=== PATIENT | female | born 1995 | race Caucasian/White ===

== ENCOUNTER 2017-11-15 17:02 | Emergency (ER) | payer MEDICAID ==
[~2017-11-15] VITALS: Ht 152.4 cm; Wt 66.2 kg
[2017-11-15 17:15] VITALS: BP 117/60
[2017-11-15 18:10] LABS: Basophils # (auto) 0.1 uL; Basophils % (auto) 0.5 % (0.0-2.0); Eosinophils # (auto) 0 uL; Eosinophils % (auto) 0.5 % (0.0-7.0); Hemoglobin 13.9 g/dL (12.2-16.2); Lymphocytes # (auto) 1.8 uL; Lymphocytes % (auto) 19.6 % (10.0-50.0); Mean Corpuscular Hemoglobin 32.2 pg (28.0-32.0); Mean Corpuscular Hgb Conc. 33.2 g/dL (32.0-36.0); Mean Corpuscular Volume 97.1 fL (80.0-100.0); Monocytes # (auto) 0.8 uL; Neutrophils # (auto) 6.7 uL; Neutrophils % (auto) 71.4 % (37.0-80.0); Nucleated Red Blood Cells % 0.2 %; Platelet Count (auto) 401 10^3/uL (140-450); Red Blood Cells 4.33 10^6/uL (4.0-5.20); Red Cell Distribution Width 13.5 % (11.8-14.3); White Blood Cell 9.4 10^3/uL (4.4-10.8)
[2017-11-15 18:22] LABS: Albumin 4.2 g/dL (3.4-5.0); BUN/Creatinine Ratio 12.1; Bilirubin, Total 1.7 mg/dL (0.2-1.0); Potassium 3.6 mmol/L (3.5-5.1)
[2017-11-16 00:02] LABS: Urine Bacteria NONE SEEN /hpf (None Seen); Urine Blood Negative /uL (Negative); Urine Mucus FEW (None Seen); Urine Specific Gravity 1.026 (1.001-1.035); Urine WBC 2 /hpf (0 - 5)
== END 2017-11-16 03:27 | disposition home or self-care (01) ==
LOC: ER 17:04
DX: K29.70 Gastritis, unspecified, without bleeding (principal)
CPT/HCPCS: 36415; 71046; 74176; 76705; 80053; 81001; 82962; 83690; 85025

== ENCOUNTER 2017-11-18 15:35 | Emergency (ER) | payer MEDICAID ==
[~2017-11-18] VITALS: Ht 162.6 cm; Wt 61.9 kg
[2017-11-18] MEDS ORDERED: KETOROLAC TROMETH 60MG/2ML VIAL IM ONE (16:15)
[2017-11-18 18:56] VITALS: BP 106/76
== END 2017-11-18 19:16 | disposition home or self-care (01) ==
LOC: ER 15:35
DX: R10.13 Epigastric pain (principal); R11.2 Nausea with vomiting, unspecified; R53.1 Weakness
CPT/HCPCS: 83001; 96372; 99283; J1885

== ENCOUNTER 2020-12-07 03:46 | Inpatient (IN) | payer MEDICAID ==
[~2020-12-07] VITALS: Ht 157.5 cm; Wt 104.6 kg
[2020-12-07 04:27] LABS: Urine Bacteria MOD /hpf (None Seen); Urine Blood 3+ /uL (Negative); Urine Mucus FEW (None Seen); Urine Specific Gravity 1.036 (1.001-1.035); Urine WBC 37 /hpf (0 - 5)
[2020-12-07] MEDS ORDERED: HYDROmorphone HCL 2 MG/ML VL IV ONE (04:30)
[2020-12-07] MEDS ORDERED: ONDANSETRON HCL 4 MG/2 ML VIAL IV ONE (04:30)
[2020-12-07] MEDS ORDERED: KETOROLAC TROMETH 30 MG/ML 1ML VIAL IV ONE (04:30)
[2020-12-07] MEDS ORDERED: cefTRIAXone 1GM/50ML D5W 50 ML IV ONE ×2 (05:30→08:30)
[2020-12-07] MEDS ORDERED: NITROGLYCERIN 0.4 MG SL TAB SL PRN (07:30)
[2020-12-07] MEDS ORDERED: MORPHINE SULFATE 4 MG/ML SYR/VIAL IV PRN (07:30)
[2020-12-07] MEDS ORDERED: DOCUSATE SOD 100 MG CAP PO PRN (07:30)
[2020-12-07] MEDS ORDERED: MORPHINE SULF INJ 2 MG/ML SYRINGE 1ML IV PRN (07:30)
[2020-12-07] MEDS ORDERED: ONDANSETRON HCL 4 MG/2 ML VIAL IV PRN (07:30)
[2020-12-07] MEDS ORDERED: SODIUM CHLORIDE 0.9% 1,000 ML IV SCH (07:30)
[2020-12-07] MEDS ORDERED: ACETAMINOPHEN 325 MG TAB PO PRN (07:30)
[2020-12-07] MEDS ORDERED: MANNITOL FTV 25% 12.5 GM/50 ML 50 ML IV ONE (08:15)
[2020-12-07] MEDS ORDERED: METOCLOPRAMIDE HCL 5MG/ml INJ 2ml VIAL IV PRN (08:15)
[2020-12-07] MEDS ORDERED: SODIUM CHLORIDE 0.9% 1,000 ML IV ONE (08:15)
[2020-12-07 08:16] LABS: Basophils # (auto) 0 10 ^3/uL (0-0.2); Eosinophils # (auto) 0 10 ^3/uL (0-0.8); Eosinophils % (auto) 0.1 % (0.0-7.0); Mean Corpuscular Volume 92.3 fL (80.0-100.0)
[2020-12-07 08:19] LABS: Basophils % (auto) 0.2 % (0.0-2.0); Hematocrit 38.1 % (36.0-46.0); Lymphocytes % (auto) 7.7 % (10.0-50.0); Mean Corpuscular Hemoglobin 31.4 pg (28.0-32.0); Monocytes # (auto) 0.7 10 ^3/uL (0-1.3); Monocytes % (auto) 5.2 % (0.0-12.0); Neutrophils # (auto) 11.7 10 ^3/uL (1.6-8.6); Neutrophils % (auto) 86.8 % (37.0-80.0); Nucleated Red Blood Cells % 0.1 %; Platelet Count (auto) 485 10^3/uL (140-450); Red Blood Cells 4.13 10^6/uL (4.0-5.20); Red Cell Distribution Width 13.7 % (11.8-14.3); White Blood Cell 13.4 10^3/uL (4.4-10.8)
[2020-12-07 08:31] LABS: Albumin 3.5 g/dL (3.4-5.0); Calcium 8.8 mg/dL (8.5-10.1); Potassium 3.4 mmol/L (3.5-5.1)
[2020-12-07 08:35] LABS: BUN/Creatinine Ratio 12.5; Bilirubin, Total 0.9 mg/dL (0.2-1.0); Total Protein 7.6 g/dL (6.4-8.2)
[2020-12-07] MEDS: FAMOTIDINE 20 MG TAB PO SCH ×2 (10:04→21:21)
[2020-12-07] MEDS: SODIUM CHLORIDE 0.9% 1,000 ML IV SCH (10:08)
[2020-12-07] MEDS ORDERED: NITR-52 PO (11:06)
[2020-12-07] MEDS ORDERED: PROM25TA5 PO (11:06)
[2020-12-07] MEDS: HYDROcodone-ACET 5/325MG TAB PO PRN ×3 (11:52→22:12)
[2020-12-07 12:42] VITALS: BP 128/84
[2020-12-07 15:47] LABS: INR 1.07 (0.9-1.15)
[2020-12-07 16:40] VITALS: BP 128/74
[2020-12-07] MEDS: TAMSULOSIN HYDROCHLORIDE 0.4 MG CAP PO SCH (18:04)
[2020-12-07 22:00] VITALS: BP 93/41
[2020-12-07] MEDS: MORPHINE SULF INJ 2 MG/ML SYRINGE 1ML IV PRN (23:01)
[2020-12-08] MEDS: SODIUM CHLORIDE 0.9% 1,000 ML IV SCH ×2 (01:37→16:09)
[2020-12-08] MEDS: MORPHINE SULF INJ 2 MG/ML SYRINGE 1ML IV PRN ×2 (02:53→23:21)
[2020-12-08 05:53] VITALS: BP 105/72
[2020-12-08 06:02] LABS: Basophils # (auto) 0 10 ^3/uL (0-0.2); Basophils % (auto) 0.4 % (0.0-2.0); Eosinophils # (auto) 0.1 10 ^3/uL (0-0.8); Eosinophils % (auto) 1.1 % (0.0-7.0); Hematocrit 34.3 % (36.0-46.0); Lymphocytes # (auto) 1.5 10 ^3/uL (0.4-5.4); Lymphocytes % (auto) 15.8 % (10.0-50.0); Mean Corpuscular Hemoglobin 32.6 pg (28.0-32.0); Mean Corpuscular Hgb Conc. 35.1 g/dL (32.0-36.0); Monocytes % (auto) 10.2 % (0.0-12.0); Neutrophils # (auto) 6.8 10 ^3/uL (1.6-8.6); Neutrophils % (auto) 72.5 % (37.0-80.0); Nucleated Red Blood Cells % 0.1 %; Platelet Count (auto) 361 10^3/uL (140-450); Red Blood Cells 3.68 10^6/uL (4.0-5.20); Red Cell Distribution Width 14.1 % (11.8-14.3); White Blood Cell 9.4 10^3/uL (4.4-10.8)
[2020-12-08 06:22] LABS: Albumin 3.1 g/dL (3.4-5.0); Potassium 3.4 mmol/L (3.5-5.1)
[2020-12-08 06:24] LABS: BUN/Creatinine Ratio 13.6
[2020-12-08 06:37] LABS: Bilirubin, Total 1.3 mg/dL (0.2-1.0); Total Protein 6.8 g/dL (6.4-8.2)
[2020-12-08 08:46] VITALS: BP 123/71
[2020-12-08] MEDS: FAMOTIDINE 20 MG TAB PO SCH ×2 (08:52→21:27)
[2020-12-08] MEDS: cefTRIAXone 1GM/50ML D5W 50 ML IV SCH (08:53)
[2020-12-08] MEDS ORDERED: POTASSIUM CHL 20 Meq TABLET PO ONE (12:45)
[2020-12-08 13:00] VITALS: BP 113/64
[2020-12-08 16:44] VITALS: BP 127/57
[2020-12-08] MEDS: TAMSULOSIN HYDROCHLORIDE 0.4 MG CAP PO SCH (18:08)
[2020-12-08] MEDS: HYDROcodone-ACET 5/325MG TAB PO PRN (19:01)
[2020-12-08 21:53] VITALS: BP 106/61
[2020-12-08] MEDS ORDERED: MANNITOL FTV 25% 12.5 GM/50 ML 50 ML IV ONE (22:00)
[2020-12-09] MEDS: HYDROcodone-ACET 5/325MG TAB PO PRN ×3 (02:11→17:58)
[2020-12-09 05:00] VITALS: BP 101/62
[2020-12-09] MEDS: SODIUM CHLORIDE 0.9% 1,000 ML IV SCH ×2 (06:12→14:40)
[2020-12-09] MEDS: FAMOTIDINE 20 MG TAB PO SCH (08:13)
[2020-12-09] MEDS: cefTRIAXone 1GM/50ML D5W 50 ML IV SCH (08:13)
[2020-12-09 09:25] VITALS: BP 108/65
[2020-12-09 13:00] VITALS: BP 123/60
[2020-12-09 16:34] VITALS: BP 128/68
[2020-12-09 17:23] VITALS: BP 123/60
[2020-12-09] MEDS: TAMSULOSIN HYDROCHLORIDE 0.4 MG CAP PO SCH (17:58)
== END 2020-12-09 18:35 | disposition home or self-care (01) | DRG 463 ==
LOC: ER 03:47 → TELE 03:48 → ER 06:34 → TELE-CENTR 09:26
PROVIDERS: ADMIT Nurse Practitioner; ATTEND Nurse Practitioner
DX: N13.6 Pyonephrosis (principal); Z68.41 Body mass index [BMI] 40.0-44.9, adult; N94.6 Dysmenorrhea, unspecified; E66.9 Obesity, unspecified; Q90.9 Down syndrome, unspecified; Z87.891 Personal history of nicotine dependence; Z20.822 Contact with and (suspected) exposure to COVID-19; M54.5 Low back pain
CPT/HCPCS: 36415; 74018; 74176; 76775; 80053; 81001; 81025; 84702; 85025; 85610; 87426; 96361; 96365; 96375; G0378; J0696; J1885; J2405

== ENCOUNTER 2020-12-21 16:16 | Inpatient (IN) | payer MEDICAID ==
[~2020-12-21] VITALS: Ht 157.5 cm; Wt 111.0 kg
[2020-12-21] MEDS ORDERED: SODIUM CHLORIDE 0.9% 1,000 ML IV ONE (18:00)
[2020-12-21] MEDS ORDERED: ONDANSETRON HCL 4 MG/2 ML VIAL IV ONE (18:00)
[2020-12-21] MEDS ORDERED: KETOROLAC TROMETH 30 MG/ML 1ML VIAL IV ONE (18:00)
[2020-12-21 18:58] LABS: Basophils # (auto) 0.1 10 ^3/uL (0-0.2); Eosinophils # (auto) 0 10 ^3/uL (0-0.8); Monocytes # (auto) 0.8 10 ^3/uL (0-1.3); Nucleated Red Blood Cells % 0.1 %; Red Cell Distribution Width 14.7 % (11.8-14.3)
[2020-12-21 18:59] LABS: Basophils % (auto) 0.7 % (0.0-2.0); Eosinophils % (auto) 0.3 % (0.0-7.0); Hemoglobin 14.7 g/dL (12.2-16.2); Lymphocytes # (auto) 2.1 10 ^3/uL (0.4-5.4); Lymphocytes % (auto) 22.2 % (10.0-50.0); Mean Corpuscular Hemoglobin 31.2 pg (28.0-32.0); Mean Corpuscular Hgb Conc. 32.8 g/dL (32.0-36.0); Mean Corpuscular Volume 95.4 fL (80.0-100.0); Neutrophils # (auto) 6.3 10 ^3/uL (1.6-8.6); Neutrophils % (auto) 67.8 % (37.0-80.0); Platelet Count (auto) 450 10^3/uL (140-450); Red Blood Cells 4.71 10^6/uL (4.0-5.20); White Blood Cell 9.4 10^3/uL (4.4-10.8)
[2020-12-21] MEDS ORDERED: MORPHINE SULF INJ 2 MG/ML SYRINGE 1ML IV ONE ×2 (21:00→21:15)
[2020-12-21 21:56] LABS: Urine Amorphous Crystal FEW /hpf (None Seen); Urine Bacteria FEW /hpf (None Seen); Urine Blood 2+ /uL (Negative); Urine Mucus FEW (None Seen); Urine Specific Gravity 1.034 (1.001-1.035); Urine WBC 17 /hpf (0 - 5)
[2020-12-21 22:05] LABS: Sodium 140 mmol/L (136-145)
[2020-12-21 22:06] LABS: Anion Gap 8 (5-15); Carbon Dioxide 23 mmol/L (21-32); Chloride 109 mmol/L (98-107); Potassium 4.1 mmol/L (3.5-5.1)
[2020-12-21 22:07] LABS: Glucose 83 mg/dL (74-106)
[2020-12-21 22:08] LABS: Alanine Aminotransferase 13 U/L (13-56); Albumin 3.9 g/dL (3.4-5.0); Alkaline Phosphatase 53 U/L (45-117); Aspartate Aminotransferase 15 U/L (15-37); BUN/Creatinine Ratio 16.4; Bilirubin, Total 1.1 mg/dL (0.2-1.0); Blood Urea Nitrogen 12 mg/dL (7-18); Calcium 9.3 mg/dL (8.5-10.1); GFR African American 124 mL/min; GFR Non-African American 102 mL/min; Total Protein 8.2 g/dL (6.4-8.2)
[2020-12-21] MEDS ORDERED: cefTRIAXone 1GM/50ML D5W 50 ML IV ONE (22:15)
[2020-12-21] MEDS ORDERED: TAMSULOSIN HYDROCHLORIDE 0.4 MG CAP PO ONE (22:45)
[2020-12-21] MEDS ORDERED: MORPHINE SULF INJ 2 MG/ML SYRINGE 1ML IV PRN (22:45)
[2020-12-21] MEDS ORDERED: NITROGLYCERIN 0.4 MG SL TAB SL PRN (22:45)
[2020-12-22] MEDS ORDERED: MORPHINE SULF INJ 2 MG/ML SYRINGE 1ML IV PRN
[2020-12-22] MEDS ORDERED: ONDANSETRON HCL 4 MG/2 ML VIAL IV PRN
[2020-12-22 00:40] VITALS: BP 116/70
[2020-12-22] MEDS: SODIUM CHLORIDE 0.9% 1,000 ML IV SCH ×3 (01:44→16:40)
[2020-12-22] MEDS ORDERED: HYDR1TAB97 PO (01:48)
[2020-12-22 05:00] VITALS: BP 111/68
[2020-12-22 05:38] LABS: Albumin 3.2 g/dL (3.4-5.0); Calcium 8.5 mg/dL (8.5-10.1); Potassium 3.9 mmol/L (3.5-5.1)
[2020-12-22 05:41] LABS: BUN/Creatinine Ratio 16.9; Bilirubin, Total 1.2 mg/dL (0.2-1.0); Total Protein 7.1 g/dL (6.4-8.2)
[2020-12-22 08:54] VITALS: BP 108/64
[2020-12-22] MEDS ORDERED: cefTRIAXone 1GM/50ML D5W 50 ML IV SCH (09:00)
[2020-12-22] MEDS: MORPHINE SULF INJ 2 MG/ML SYRINGE 1ML IV PRN ×2 (10:10→19:47)
[2020-12-22 12:28] VITALS: BP 119/69
[2020-12-22] MEDS: KETOROLAC TROMETH 30 MG/ML 1ML VIAL IV PRN ×2 (13:56→20:46)
[2020-12-22] MEDS ORDERED: MANNITOL FTV 25% 12.5 GM/50 ML 50 ML IV ONE (14:45)
[2020-12-22 16:54] VITALS: BP 118/74
[2020-12-22] MEDS: TAMSULOSIN HYDROCHLORIDE 0.4 MG CAP PO SCH (17:35)
[2020-12-22] MEDS: diphenhdrAMINE HCL 25 MG CAP PO PRN (18:03)
[2020-12-22] MEDS: CIPROFLOXACIN 400MG/200ML 200 ML IV SCH (21:58)
[2020-12-22 22:00] VITALS: BP_SYST 115; BP_SYST 157; BP_DIAS 75
[2020-12-23] MEDS: SODIUM CHLORIDE 0.9% 1,000 ML IV SCH ×4 (01:00→21:26)
[2020-12-23] MEDS: KETOROLAC TROMETH 30 MG/ML 1ML VIAL IV PRN ×2 (04:30→12:22)
[2020-12-23 05:00] VITALS: BP 117/73
[2020-12-23] MEDS: MORPHINE SULF INJ 2 MG/ML SYRINGE 1ML IV PRN ×3 (05:30→17:59)
[2020-12-23 06:08] LABS: Potassium 3.8 mmol/L (3.5-5.1)
[2020-12-23 06:18] LABS: Albumin 3.1 g/dL (3.4-5.0); BUN/Creatinine Ratio 14.5; Bilirubin, Total 1.2 mg/dL (0.2-1.0); Calcium 8.4 mg/dL (8.5-10.1); Total Protein 6.7 g/dL (6.4-8.2)
[2020-12-23 08:00] VITALS: BP 122/79
[2020-12-23] MEDS: diphenhdrAMINE HCL 25 MG CAP PO PRN ×2 (08:26→22:07)
[2020-12-23] MEDS: CIPROFLOXACIN 400MG/200ML 200 ML IV SCH ×2 (09:03→21:29)
[2020-12-23] MEDS: MAGNESIUM OXIDE 400 MG TAB PO SCH ×2 (09:03→21:29)
[2020-12-23 12:00] VITALS: BP 128/84
[2020-12-23 16:52] VITALS: BP 108/62
[2020-12-23] MEDS: TAMSULOSIN HYDROCHLORIDE 0.4 MG CAP PO SCH (17:51)
[2020-12-23 22:00] VITALS: BP 107/63
[2020-12-24] MEDS: MORPHINE SULF INJ 2 MG/ML SYRINGE 1ML IV PRN ×3 (03:02→23:08)
[2020-12-24 05:00] VITALS: BP 124/75
[2020-12-24 06:27] LABS: Potassium 3.5 mmol/L (3.5-5.1)
[2020-12-24 06:35] LABS: Albumin 2.8 g/dL (3.4-5.0); BUN/Creatinine Ratio 13.5; Calcium 7.9 mg/dL (8.5-10.1); Total Protein 6.1 g/dL (6.4-8.2)
[2020-12-24 08:00] VITALS: BP 127/83
[2020-12-24] MEDS: CIPROFLOXACIN 400MG/200ML 200 ML IV SCH ×2 (10:00→21:38)
[2020-12-24] MEDS: SODIUM CHLORIDE 0.9% 1,000 ML IV SCH ×2 (10:01→18:21)
[2020-12-24] MEDS: MAGNESIUM OXIDE 400 MG TAB PO SCH ×2 (10:01→21:38)
[2020-12-24 12:00] VITALS: BP 127/90
[2020-12-24] MEDS ORDERED: LACTULOSE 20Gm/30ML SOLN PO ONE (12:00)
[2020-12-24 16:00] VITALS: BP 131/87
[2020-12-24] MEDS: ALPRAZolam 0.25 MG TAB PO PRN (17:31)
[2020-12-24] MEDS: TAMSULOSIN HYDROCHLORIDE 0.4 MG CAP PO SCH (17:31)
[2020-12-24 20:00] VITALS: BP 118/73
[2020-12-24] MEDS: DOCUSATE SOD 100 MG CAP PO SCH (21:38)
[2020-12-24 22:00] VITALS: BP 118/73
[2020-12-25] MEDS: SODIUM CHLORIDE 0.9% 1,000 ML IV SCH ×3 (03:06→20:54)
[2020-12-25 05:00] VITALS: BP 116/77
[2020-12-25] MEDS: MORPHINE SULF INJ 2 MG/ML SYRINGE 1ML IV PRN (07:45)
[2020-12-25 08:00] VITALS: BP 134/88
[2020-12-25] MEDS: MAGNESIUM OXIDE 400 MG TAB PO SCH ×2 (10:01→21:30)
[2020-12-25] MEDS: ALPRAZolam 0.25 MG TAB PO PRN ×2 (10:01→16:53)
[2020-12-25] MEDS: DOCUSATE SOD 100 MG CAP PO SCH ×2 (10:01→21:30)
[2020-12-25] MEDS: CIPROFLOXACIN 400MG/200ML 200 ML IV SCH ×2 (10:01→21:30)
[2020-12-25 12:00] VITALS: BP 118/68
[2020-12-25 16:00] VITALS: BP 142/72
[2020-12-25] MEDS: TAMSULOSIN HYDROCHLORIDE 0.4 MG CAP PO SCH (18:00)
[2020-12-25 20:29] LABS: Urine Bacteria FEW /hpf (None Seen); Urine Blood 1+ /uL (Negative); Urine Mucus FEW (None Seen); Urine Specific Gravity 1.005 (1.001-1.035); Urine WBC 3 /hpf (0 - 5)
[2020-12-25 22:00] VITALS: BP 110/76
[2020-12-26] MEDS: SODIUM CHLORIDE 0.9% 1,000 ML IV SCH (04:47)
[2020-12-26 05:00] VITALS: BP 106/76
[2020-12-26 08:29] VITALS: BP 128/88
[2020-12-26 08:30] VITALS: BP 128/88
[2020-12-26] MEDS: DOCUSATE SOD 100 MG CAP PO SCH (10:00)
[2020-12-26] MEDS: MAGNESIUM OXIDE 400 MG TAB PO SCH (10:00)
[2020-12-26] MEDS: CIPROFLOXACIN 400MG/200ML 200 ML IV SCH (10:00)
[2020-12-26 11:58] VITALS: BP 128/88
[2020-12-26 11:58] LABS: Basophils # (auto) 0 10 ^3/uL (0-0.2); Basophils % (auto) 0.5 % (0.0-2.0); Eosinophils # (auto) 0.1 10 ^3/uL (0-0.8); Eosinophils % (auto) 0.8 % (0.0-7.0); Hematocrit 36.5 % (36.0-46.0); Hemoglobin 12.1 g/dL (12.2-16.2); Lymphocytes % (auto) 10.7 % (10.0-50.0); Mean Corpuscular Hemoglobin 30.8 pg (28.0-32.0); Mean Corpuscular Hgb Conc. 33.3 g/dL (32.0-36.0); Mean Corpuscular Volume 92.6 fL (80.0-100.0); Monocytes # (auto) 0.8 10 ^3/uL (0-1.3); Monocytes % (auto) 7.9 % (0.0-12.0); Neutrophils # (auto) 7.6 10 ^3/uL (1.6-8.6); Neutrophils % (auto) 80.1 % (37.0-80.0); Platelet Count (auto) 415 10^3/uL (140-450); Red Blood Cells 3.94 10^6/uL (4.0-5.20); Red Cell Distribution Width 14.6 % (11.8-14.3); White Blood Cell 9.5 10^3/uL (4.4-10.8)
[2020-12-26 12:16] LABS: BUN/Creatinine Ratio 7.9; Calcium 9.2 mg/dL (8.5-10.1); Potassium 3.6 mmol/L (3.5-5.1)
[2020-12-26 12:30] VITALS: BP 132/93
== END 2020-12-26 14:05 | disposition home or self-care (01) | DRG 463 ==
LOC: ER 16:16 → TELE 22:39 → TELE-CENTR 23:44
PROVIDERS: ADMIT Internal Medicine; ATTEND Internal Medicine
DX: N13.6 Pyonephrosis (principal); E66.01 Morbid (severe) obesity due to excess calories; N13.9 Obstructive and reflux uropathy, unspecified; N94.6 Dysmenorrhea, unspecified; F84.0 Autistic disorder; Z20.822 Contact with and (suspected) exposure to COVID-19; F41.1 Generalized anxiety disorder; Z87.891 Personal history of nicotine dependence; Z87.442 Personal history of urinary calculi; Z68.41 Body mass index [BMI] 40.0-44.9, adult
CPT/HCPCS: 36415; 74176; 80048; 80053; 81001; 84702; 85025; 87081; 87086; 87426; 96361; 96365; 96375; G0378; J0696; J1885; J2405

== ENCOUNTER 2022-05-28 00:37 | Emergency (ER) | payer MEDICAID ==
[~2022-05-28] VITALS: Ht 157.5 cm; Wt 109.1 kg
[~2022-05-28 00:37] MED LIST: HYDR1TAB97 PO
[2022-05-28] MEDS ORDERED: ONDANSETRON ODT 4 MG TAB PO ONE (04:15)
[2022-05-28] MEDS ORDERED: HYDROcodone-ACET 10/325MG TAB PO ONE (04:15)
[2022-05-28] MEDS ORDERED: ONDA-144 PO (04:18)
[2022-05-28] MEDS ORDERED: HYDR-4902 PO (04:18)
[2022-05-28 04:57] VITALS: BP 124/82
== END 2022-05-28 05:02 | disposition home or self-care (01) ==
LOC: ER 00:39
DX: S82.841A Displaced bimalleolar fracture of right lower leg, initial encounter for closed fracture (principal); X50.1XXA Overexertion from prolonged static or awkward postures, initial encounter; Y93.89 Activity, other specified; Y92.89 Other specified places as the place of occurrence of the external cause; Y99.8 Other external cause status
CPT/HCPCS: 29515; 73610; 73630; 99284; Q0162

== ENCOUNTER 2023-04-10 17:29 | Emergency (ER) | payer MEDICAID ==
[~2023-04-10] VITALS: Ht 160 cm; Wt 109.6 kg
[~2023-04-10 17:29] MED LIST changes: +HYDR-4902 PO; +ONDA-144 PO
[2023-04-10] MEDS ORDERED: HYDROcodone-ACET 5/325MG TAB PO ONE (22:00)
[2023-04-10] MEDS ORDERED: IBUP1TAB5 PO (22:01)
[2023-04-10 22:30] VITALS: BP 127/82; PULSE 99; RESP 20; O2SAT 100
== END 2023-04-10 22:47 | disposition home or self-care (01) ==
LOC: ER 17:29
DX: S93.401A Sprain of unspecified ligament of right ankle, initial encounter (principal); S93.601A Unspecified sprain of right foot, initial encounter; M25.571 Pain in right ankle and joints of right foot; Z79.899 Other long term (current) drug therapy; X50.1XXA Overexertion from prolonged static or awkward postures, initial encounter; Y93.89 Activity, other specified; Y92.89 Other specified places as the place of occurrence of the external cause; Y99.8 Other external cause status
CPT/HCPCS: 29515; 73610; 73630; 93971

== ENCOUNTER 2024-08-07 15:42 | Inpatient (IN) | payer MEDICAID ==
[~2024-08-07] VITALS: Ht 160 cm; Wt 113.4 kg
[~2024-08-07 15:42] MED LIST changes: +IBUP1TAB5 PO
[2024-08-07] MEDS: SODIUM CHLORIDE 0.9% 1,000 ML IV ONE ×2 (16:00→17:37)
[2024-08-07] MEDS: KETOROLAC TROMETH 30 MG/ML 1ML VIAL IV ONE (16:28)
[2024-08-07] MEDS: ONDANSETRON HCL 4 MG/2 ML VIAL IV ONE (16:28)
[2024-08-07 16:42] LABS: Basophils # (auto) 0 10 ^3/uL (0-0.2); Basophils % (auto) 0.3 % (0.0-2.0); Eosinophils # (auto) 0.1 10 ^3/uL (0-0.8); Eosinophils % (auto) 2.3 % (0.0-7.0); Hematocrit 39.4 % (36.0-46.0); Hemoglobin 13.4 g/dL (12.2-16.2); Lymphocytes # (auto) 0.4 10 ^3/uL (0.4-5.4); Lymphocytes % (auto) 6.5 % (10.0-50.0); Mean Corpuscular Hemoglobin 31.1 pg (28.0-32.0); Mean Corpuscular Hgb Conc. 34.1 g/dL (32.0-36.0); Mean Corpuscular Volume 91.1 fL (80.0-100.0); Monocytes # (auto) 0.7 10 ^3/uL (0-1.3); Monocytes % (auto) 11.3 % (0.0-12.0); Neutrophils # (auto) 4.6 10 ^3/uL (1.6-8.6); Neutrophils % (auto) 79.6 % (37.0-80.0); Nucleated Red Blood Cells % 0.2 %; Platelet Count (auto) 350 10^3/uL (140-450); Red Blood Cells 4.32 10^6/uL (4.0-5.20); White Blood Cell 5.8 10^3/uL (4.4-10.8)
--- NOTE | 2024-08-07 16:44 | ED.PDOC ---
General HPI Comments 29 year old female, intellectually delayed, presents to the ED with mother for a chief complaint of left flank pain associated with dysuria that started 2-3 weeks ago. Mother reports patient's pain has progressively worsened to the point of having to pull her out her program. Patient has tenderness on palpation to the left flank. Patient was diagnosed with a UTI at Dr. Rodriguez's 4 days ago, was given antibiotics but mother states no improvement since. No fever, chills, hematuria, nausea, vomiting, or diarrhea reported. Chief Complaint: Urinary Time Seen by MD: 15:59 Primary Care Provider: [facility] Reviewed notes: Nurses Notes, Medications, Allergies Allergies: Coded Allergies: NO KNOWN ALLERGIES (Unverified , 10/31/15) Home Meds Active Scripts Ibuprofen Micronized (Ibuprofen) 600 Mg Tab, 1 TAB PO Q8HR, #20 TAB as needed for pain Prov:MARIA DEL CARMEN JUAREZ INSULATION BOARD CALENDER OPERATOR 04/10/23 Ondansetron (Zofran) 4 Mg Tab, 1 TAB PO Q6HR PRN, #10 TAB 0 Refills Prov:SAM RIVERO 05/28/22 Hydrocodone-Acetaminophen (Hydrocodone Bitartrate/AC 5-325 mg) 1 Tab Tab, 1 TAB PO Q4HPRN PRN, #10 TAB 0 Refills Prov:SAM RIVERO 05/28/22 Reported Medications Hydrocodone-Acetaminophen (Hydrocodone/Acetaminophen 5-325 mg) 1 Tab Tab, 1 TAB PO PRN for MODERATE PAIN (4-6 PAIN SCALE), TAB 12/22/20 Information Source: Patient Mode of Arrival: Ambulatory Severity: Moderate Timing: Weeks Duration: Since onset Onset: Spontaneous Symptoms: Dysuria History of: UTI Location: (L)Flank Modifying factors: None associated signs and symptoms: Flank Pain, Dysuria Past Medical History PAST MEDICAL HISTORY: UTI'S Past Medical History (Other): intellectually delayed Surgical History: Denies all surgeries MACHINE LOADER History: No Pertinent MACHINE LOADER History Family History Family History: Reviewed,noncontributory to illness Social History Smoker: Non-Smoker Alcohol: Denies ETOH Use Drugs: Denies Drug Use Lives In: Home Constitutional: denies: chills, diaphoresis, fatigue, fever, malaise, sweats, weakness, others EENTM: denies: blurred vision, double vision, ear bleeding, ear discharge, ear drainage, ear pain, ear ringing, eye pain, eye redness, hearing loss, mouth pain, mouth swelling, nasal discharge, nose bleeding, nose congestion, nose pain, photophobia, tearing, throat pain, throat swelling, voice changes, others Respiratory: denies: cough, hemoptysis, orthopnea, SOB at rest, shortness of breath, SOB with excertion, stridor, wheezing, others Cardiovascular: denies: chest pain, dizzy spells, diaphoresis, Dyspnea on exertion, edema, irregular heart beat, left arm pain, lightheadedness, palpitations, PND, syncope, others Gastrointestinal: denies: abdomen distended, abdominal pain, blood streaked bowels, constipated, diarrhea, dysphagia, difficulty swallowing, hematemesis, melena, nausea, poor appetite, poor fluid intake, rectal bleeding, rectal pain, vomiting, others Genitourinary: reports: dysuria, flank pain; denies: abnormal vagina bleeding, burning, dyspareunia, frequency, hematuria, incontinence, pain, , vagina discharge, urgency, others Neurological: denies: dizziness, fainting, headache, left sided numbness, left sided weakness, numbness, paresthesia, pre-existing deficit, right sided numbness, right sided weakness, seizure, speech problems, tingling, tremors, weakness, others Musculoskeletal: denies: back pain, gout, joint pain, joint swelling, muscle pain, muscle stiffness, neck pain, others Integumetry: denies: bruises, change in color, change in hair/nails, dryness, laceration, lesions, lumps, rash, wounds, others Allergic/Immunocompromised: denies: Difficulty Healing, Frequent Infections, Hives, Itching, others Hematologic/Lymphatic: denies: anemia, blood clots, easy bleeding, easy bruising, swollen glands, others Endocrine: denies: excessive hunger, excessive sweating, excessive thirst, excessive urination, flushing, intolerance to cold, intolerance to heat, unexplained weight gain, unexplained weight loss, others Psychiatric: denies: anxiety, bipolar disorder, depression, hopeless, panic disorder, schizophrenia, sleepless, suicidal, others All Other Systems: Reviewed and Negative Physical Exam General Appearance: Severe Distress HEENT: Normal ENT Inspection Neck: Normal, Normal Inspection Respiratory: Lungs Clear, No Respiratory Distress, Normal Breath Sounds Cardiovascular: Normal Peripheral Pulses Breast Exam: Deferred Gastrointestinal: Tenderness (left flank ) Genitalia: Deferred Pelvic: Deferred Rectal: Deferred Extremities: Normal inspection Neurologic: Alert, Normal Affect Cerebellar Function: Normal Reflexes: Normal Skin: Dry, Normal Color, Warm Lymphatic: No Adenopathy Was a procedure done? Was a procedure done?: No Differential Diagnosis Kidney stone (Female): Musculoskeletal pain, Pancreatitis, Pyelonephritis, Strain Urinary Problem (Female): Urolithiasis, UTI X-Ray, Labs, Meds, VS Vital Signs Date Time Temp Pulse Resp B/P (MAP) Pulse Ox O2 Delivery O2 Flow Rate FiO2 08/07/24 17:44 121 20 106/66 08/07/24 17:38 121 18 96 Room Air 08/07/24 16:31 110 18 134/80 (98) 94 08/07/24 16:00 100.1 139 16 118/77 (91) 98 Lab Test 08/07/24 16:21 08/07/24 16:10 Range/Units White Blood Count 5.8 4.4-10.8 10^3/uL Red Blood Count 4.32 4.0-5.20 10^6/uL Hemoglobin 13.4 12.2-16.2 g/dL Hematocrit 39.4 36.0-46.0 % Mean Corpuscular Volume 91.1 80.0-100.0 fL Mean Corpuscular Hemoglobin 31.1 28.0-32.0 pg Mean Corpuscular Hemoglobin Concent 34.1 32.0-36.0 g/dL Red Cell Distribution Width 15.0 H 11.8-14.3 % Platelet Count 350 140-450 10^3/uL Mean Platelet Volume 9.8 6.9-10.8 fL Neutrophils (%) (Auto) 79.6 37.0-80.0 % Lymphocytes (%) (Auto) 6.5 L 10.0-50.0 % Monocytes (%) (Auto) 11.3 0.0-12.0 % Eosinophils (%) (Auto) 2.3 0.0-7.0 % Basophils (%) (Auto) 0.3 0.0-2.0 % Neutrophils # (Auto) 4.6 1.6-8.6 10 ^3/uL Lymphocytes # (Auto) 0.4 0.4-5.4 10 ^3/uL Monocytes # (Auto) 0.7 0-1.3 10 ^3/uL Eosinophils # (Auto) 0.1 0-0.8 10 ^3/uL Basophils # (Auto) 0 0-0.2 10 ^3/uL Nucleated Red Blood Cells 0.2 % Sodium Level 136 136-145 mmol/L Potassium Level 4.1 3.5-5.1 mmol/L Chloride Level 106 98-107 mmol/L Carbon Dioxide Level 20 20-31 mmol/L Anion Gap 10 5-15 Blood Urea Nitrogen 6 L 9-23 mg/dL Creatinine 1.12 H 0.550-1.02 mg/dL Glomerular Filtration Rate Calc 68 >90 mL/min BUN/Creatinine Ratio 5.4 L 10.0-20.0 Serum Glucose 104 74-106 mg/dL Calcium Level 9.5 8.7-10.4 mg/dL Total Bilirubin 0.6 0.2-1.0 mg/dL Aspartate Amino Transferase (AST) 17 13-40 U/L Alanine Aminotransferase (ALT) 10 7-40 U/L Alkaline Phosphatase 63 46-116 U/L Total Protein 7.7 5.7-8.2 g/dL Albumin 4.4 3.2-4.8 g/dL Urine Color Yellow Yellow Urine Clarity Turbid H Clear Urine pH 6.0 5.0-9.0 Urine Specific [place] 1.028 1.001-1.035 Urine Protein 1+ H Negative Urine Ketones 1+ H Negative Urine Blood Negative Negative /uL Urine Nitrite Negative Negative Urine Bilirubin Negative Negative Urine Urobilinogen 6 Negative mg/dL Urine Leukocyte Esterase Negative Negative /uL Urine RBC 32 0 - 4 /hpf Urine WBC 3 0 - 5 /hpf Urine Squamous Epithelial Cells Mod <5 /hpf Urine Bacteria Few H None Seen /hpf Urine Mucus Few None Seen Urine Glucose Normal Normal mg/dL Current Medications Medications (Trade) Dose Ordered Sig/Martha Route Start Time Stop Time Status Last Admin Sodium Chloride 1,000 ml @ 1,000 mls/hr Q1H ONCE IV 08/07/24 16:00 08/07/24 16:59 DC 08/07/24 16:00 Ondansetron HCl (Zofran) 4 mg ONCE ONCE IV 08/07/24 16:00 08/07/24 16:01 DC 08/07/24 16:28 Ketorolac Tromethamine (Toradol Injection) 30 mg ONCE ONCE IV 08/07/24 16:00 08/07/24 16:01 DC 08/07/24 16:28 Sodium Chloride 1,000 ml @ 1,000 mls/hr Q1H ONCE IV 08/07/24 17:30 08/07/24 18:29 08/07/24 17:37 Morphine Sulfate 4 mg ONCE ONCE IV 08/07/24 17:30 08/07/24 17:31 DC 08/07/24 17:44 29-year-old female presents here with body pain worse to the left flank. And she was tachycardic at 133.. Blood work has been done which demonstrates no leukocytosis. And is unremarkable. Urine demonstrates questionable UTI however she has finished 1 round of an antibiotic already. At this time I have written for total of 2 L IV fluids, Toradol and morphine, as on initial re-evaluation she continued to have pain and was very tachycardic. On my last re-evaluation at 6:00 p.m., patient is still tachycardic at 107 and sore reports left flank pain. I am concerned about pyelo. Patient does have a history of being mentally challenged. At this time I believe she would benefit hospital admission. I have written for Rocephin IV. Time of 1ST Reevaluation: 16:31 Reevaluation 1ST: Unchanged Time of 2ND Reevaluation: 17:22 (Patient reports pain has no subsided or relieved with medication. tachycardiac at 124) Reevaluation 2ND: Unchanged Patient Education/Counseling: Other Family Education/Counseling: Diagnosis, Treatment, Prognosis Departure 1 Departure Time of Disposition: 18:25 Impression: Primary Impression: Pyelonephritis Additional Impressions: Acute kidney injury UTI (urinary tract infection) Qualified Codes: N10 - Acute pyelonephritis Disposition: ADMITTED INPATIENT Condition: Fair Critical Care Note Critical Care Time?: No Stability Stability form required: No I personally scribed for GIOVANNI BARRETO MD ([email or web address]) on 08/07/24 at 16:53. Electronically submitted by Modesta Yanez ([facility]). I personally scribed for GIOVANNI BARRETO MD ([email or web address]) on 08/07/24 at 17:08. Electronically submitted by Modesta Yanez ([facility]). I personally scribed for GIOVANNI BARRETO MD ([email or web address]) on 08/07/24 at 17:27. Electronically submitted by Modesta Yanez ([facility]). I personally scribed for GIOVANNI BARRETO MD ([email or web address]) on 08/07/24 at 17:28. Electronically submitted by Modesta Yanez ([facility]). GIOVANNI BARRETO MD Aug 07, 2024 16:44
[2024-08-07 16:52] LABS: Urine Bacteria FEW /hpf (None Seen); Urine Blood Negative /uL (Negative); Urine Clarity Turbid (Clear); Urine Color Yellow (Yellow); Urine Mucus FEW (None Seen); Urine Protein, UAD 1+ (Negative); Urine Specific Gravity 1.028 (1.001-1.035); Urine Urobilinogen 6 mg/dL (Negative); Urine WBC 3 /hpf (0 - 5)
[2024-08-07 17:03] LABS: Alanine Aminotransferase 10 U/L (7-40); Albumin 4.4 g/dL (3.2-4.8); Alkaline Phosphatase 63 U/L (46-116); Anion Gap 10 (5-15); Aspartate Aminotransferase 17 U/L (13-40); BUN/Creatinine Ratio 5.4 (10.0-20.0); Calcium 9.5 mg/dL (8.7-10.4); Carbon Dioxide 20 mmol/L (20-31); Chloride 106 mmol/L (98-107); Glucose 104 mg/dL (74-106); Potassium 4.1 mmol/L (3.5-5.1); Sodium 136 mmol/L (136-145)
[2024-08-07 17:04] LABS: Bilirubin, Total 0.6 mg/dL (0.2-1.0); Total Protein 7.7 g/dL (5.7-8.2)
[2024-08-07 17:17] LABS: Blood Urea Nitrogen 6 mg/dL (9-23)
[2024-08-07] MEDS: MORPHINE SULFATE 4 MG/ML SYR/VIAL IV ONE (17:44)
[2024-08-07] MEDS ORDERED: LORazepam 0.5 MG TAB PO PRN (18:45)
[2024-08-07] MEDS ORDERED: TEMAZEPAM 15 MG CAP PO PRN (18:45)
[2024-08-07] MEDS ORDERED: METOCLOPRAMIDE HCL 5MG/ml INJ 2ml VIAL IV PRN (18:45)
[2024-08-07] MEDS ORDERED: ONDANSETRON HCL 4 MG/2 ML VIAL IV PRN (18:45)
[2024-08-07] MEDS ORDERED: HYDROcodone-ACET 5/325MG TAB PO PRN ×2 (18:45)
[2024-08-07] MEDS ORDERED: ACETAMINOPHEN 325 MG TAB PO PRN (18:45)
[2024-08-07] MEDS ORDERED: MAALOX PLUS or MAALOX 30 ML PO PRN (18:45)
[2024-08-07] MEDS ORDERED: DOCUSATE SOD 100 MG CAP PO PRN (18:45)
--- NOTE | 2024-08-07 18:58 | DVHHP2 ---
History of Present Illness Reason for Visit: uti History of Present Illness 29-year-old morbidly obese patient with a history of intellectual delays recurrent UTIs and history of previous kidney stones comes in for evaluation of flank pain patient has been having recurrent issues with urinary symptoms for the past 2-3 weeks patient was initially diagnosed with a UTI in outpatient clinic and was started on antibiotics p.o. treatment outpatient with no im provement and continued worsening symptoms patient is believed to have failed outpatient treatment and was recommended by the ED for inpatient care and continuation of management patient is for admission and further evaluation Renal/: UTI Review of Systems Constitutional: Yes: Weakness; No: Fever, Chills, Sweats, Malaise, Other Eyes: No: Pain, Vision change, Conjunctivae inflammation, Eyelid inflammation, Other, Redness ENT: No: Ear pain, Ear discharge, Nose pain, Nose discharge, Nose congestion, Mouth pain, Mouth swelling, Throat pain, Throat swelling, Other Respiratory: No: Cough, Dry, Shortness of breath, SOB with excertion, Wheezing, Hemoptysis, Pleuritic Pain, Sputum, Wheezing, Other Cardiovascular: No: Chest Pain, Palpitations, Orthopnea, Paroxysmal Noc. Dyspnea, Edema, Lt Headedness, Other Gastrointestinal: No: Nausea, Vomiting, Abdominal Pain, Diarrhea, Constipation, Melena, Hematochezia, Other Genitourinary: Dysuria, Frequency, Incontinence; No Hematuria, No Retention, No Other Musculoskeletal: No: other, neck pain, shoulder pain, arm pain, back pain, hand pain, leg pain, foot pain Skin: No: Rash, Lesions, Jaundice, Bruising, Other Neurological: No: Weakness, Numbness, Incoordination, Change in speech, Confusion, Seizures, Other Allergies: Coded Allergies: NO KNOWN ALLERGIES (Unverified , 10/31/15) Medications Current Medications Medications Dose Ordered Sig/Martha Route Start Time Stop Time Status Last Admin Dose Admin Acetaminophen/ Hydrocodone Bitart 1 tab Q4HPRN PRN PO 08/07/24 18:45 UNV Ibuprofen 600 mg Q8HR PO 08/07/24 22:00 UNV Patient Own Medication 1 tab Q6HR PRN PO 08/07/24 18:45 UNV Ceftriaxone Sodium 50 ml @ 100 mls/hr DAILY IV 08/08/24 10:00 UNV Sodium Chloride 1,000 ml @ 200 mls/hr Q5H IV 08/07/24 18:45 UNV Lorazepam 0.5 mg Q6HP PRN PO 08/07/24 18:45 UNV Al Hydrox/Mg Hydrox/Simethicone 30 ml Q6HP PRN PO 08/07/24 18:45 UNV Metoclopramide HCl 10 mg Q4HP PRN IV 08/07/24 18:45 UNV Docusate Sodium 100 mg BIDPRN PRN PO 08/07/24 18:45 UNV Acetaminophen 650 mg Q6HP PRN PO 08/07/24 18:45 UNV Temazepam 15 mg QHSP PRN PO 08/07/24 18:45 UNV Acetaminophen/ Hydrocodone Bitart 1 tab Q4HP PRN PO 08/07/24 18:45 UNV Ondansetron HCl 4 mg Q4HP PRN IV 08/07/24 18:45 UNV Morphine Sulfate 2 mg Q4HPRN PRN IV 08/07/24 18:45 UNV Exam Vital Signs Vital Signs Date Time Temp Pulse Resp B/P (MAP) Pulse Ox O2 Delivery O2 Flow Rate FiO2 08/07/24 17:44 121 20 106/66 08/07/24 17:38 96 Room Air 08/07/24 16:00 100.1 General Appearance: Alert, Oriented X3, Cooperative HEENT: Atraumatic, PERRLA, EOMI Respiratory: Clear to auscultation, Normal air movement Cardiovascular: Regular rate, Normal S1, Normal S2 Abdominal: Normal bowel sounds, Soft, No tenderness Extremities: No clubbing, No cyanosis Skin: No rashes, No breakdown Neuro: Normal gait, Normal speech Psych/Mental Status: Mood NL Labs/Xrays Labs Test 08/07/24 16:21 08/07/24 16:10 Range/Units White Blood Count 5.8 4.4-10.8 10^3/uL Red Blood Count 4.32 4.0-5.20 10^6/uL Hemoglobin 13.4 12.2-16.2 g/dL Hematocrit 39.4 36.0-46.0 % Mean Corpuscular Volume 91.1 80.0-100.0 fL Mean Corpuscular Hemoglobin 31.1 28.0-32.0 pg Mean Corpuscular Hemoglobin Concent 34.1 32.0-36.0 g/dL Red Cell Distribution Width 15.0 H 11.8-14.3 % Platelet Count 350 140-450 10^3/uL Mean Platelet Volume 9.8 6.9-10.8 fL Neutrophils (%) (Auto) 79.6 37.0-80.0 % Lymphocytes (%) (Auto) 6.5 L 10.0-50.0 % Monocytes (%) (Auto) 11.3 0.0-12.0 % Eosinophils (%) (Auto) 2.3 0.0-7.0 % Basophils (%) (Auto) 0.3 0.0-2.0 % Neutrophils # (Auto) 4.6 1.6-8.6 10 ^3/uL Lymphocytes # (Auto) 0.4 0.4-5.4 10 ^3/uL Monocytes # (Auto) 0.7 0-1.3 10 ^3/uL Eosinophils # (Auto) 0.1 0-0.8 10 ^3/uL Basophils # (Auto) 0 0-0.2 10 ^3/uL Nucleated Red Blood Cells 0.2 % Sodium Level 136 136-145 mmol/L Potassium Level 4.1 3.5-5.1 mmol/L Chloride Level 106 98-107 mmol/L Carbon Dioxide Level 20 20-31 mmol/L Anion Gap 10 5-15 Blood Urea Nitrogen 6 L 9-23 mg/dL Creatinine 1.12 H 0.550-1.02 mg/dL Glomerular Filtration Rate Calc 68 >90 mL/min BUN/Creatinine Ratio 5.4 L 10.0-20.0 Serum Glucose 104 74-106 mg/dL Calcium Level 9.5 8.7-10.4 mg/dL Total Bilirubin 0.6 0.2-1.0 mg/dL Aspartate Amino Transferase (AST) 17 13-40 U/L Alanine Aminotransferase (ALT) 10 7-40 U/L Alkaline Phosphatase 63 46-116 U/L Total Protein 7.7 5.7-8.2 g/dL Albumin 4.4 3.2-4.8 g/dL Urine Color Yellow Yellow Urine Clarity Turbid H Clear Urine pH 6.0 5.0-9.0 Urine Specific [place] 1.028 1.001-1.035 Urine Protein 1+ H Negative Urine Ketones 1+ H Negative Urine Blood Negative Negative /uL Urine Nitrite Negative Negative Urine Bilirubin Negative Negative Urine Urobilinogen 6 Negative mg/dL Urine Leukocyte Esterase Negative Negative /uL Urine RBC 32 0 - 4 /hpf Urine WBC 3 0 - 5 /hpf Urine Squamous Epithelial Cells Mod <5 /hpf Urine Bacteria Few H None Seen /hpf Urine Mucus Few None Seen Urine Glucose Normal Normal mg/dL Assessment/Plan Assessment/Plan Admit to [facility] Pyelonephritis suspected CLIFF Urinary tract infection unknown source of bacteria IV hydration IV antibiotics Urine culture P.r.n. medications for pain Plan discussed with: Patient My Orders Orders - LORNE NELSON MD Procedure Category Date Status Time Hydrocodone-Acet PHA 08/07/24 Logged 5/325mg Tab ([place] 18:45 Ibuprofen Tablet PHA 08/07/24 Logged (Motrin Tablet) 22:00 (Nf) Ondansetron PHA 08/07/24 Logged (Zofran) 18:45 Ceftriaxone 1gm/50ml PHA 08/08/24 Logged D5w (Rocephin) 10:00 Admit ADMIT 08/07/24 Transmitted 18:35 Code Status CODE 08/07/24 Transmitted 18:35 Vital Signs TONY 08/07/24 In Process 18:35 Review Orders With TONY 08/07/24 In Process Adm. 18:35 Consistent DIET 08/08/24 Transmitted Carb(Ccho)Diabetes Breakfast Sodium Chloride 0.9% PHA 08/07/24 Logged 18:45 Lorazepam Tablet PHA 08/07/24 Logged (Ativan Tablet) 18:45 Alum & Mag PHA 08/07/24 Logged Hydrox-Simethicone 18:45 Metoclopramide PHA 08/07/24 Logged Injection (Reglan 18:45 Docusate Sodium PHA 08/07/24 Logged Capsule (Colace 18:45 Acetaminophen Tablet PHA 08/07/24 Logged (Tylenol Tablet) 18:45 Temazepam (Restoril) PHA 08/07/24 Logged 18:45 Notify Md Of Changes TONY 08/07/24 In Process From Base 18:35 Advance Directive TONY 08/07/24 In Process 18:35 Basic Metabolic Panel LAB 08/08/24 Verified 04:00 Complete Blood Count LAB 08/08/24 Verified 04:00 Urine Bacterial OPHELIA 08/07/24 Logged Culture 18:35 Patient Condition ORDERS 08/07/24 Transmitted 18:35 Allergies TONY 08/07/24 In Process 18:35 Hydrocodone-Acet PHA 08/07/24 Logged 5/325mg Tab ([place] 18:45 Ondansetron Hcl PHA 08/07/24 Logged (Zofran) 18:45 Morphine Sulfate PHA 08/07/24 Logged Injection 18:45 Notify Md Of Changes TONY 08/07/24 In Process From Base 18:35 Oxygen By Nasal RT 08/07/24 Transmitted [place] 18:35 Problem List: (1) UTI (urinary tract infection) (2) Acute kidney injury (3) Pyelonephritis Date of Service: Aug 07, 2024 Billing Provider: LORNE NELSON MD Common Visit Codes: [id number] INP/OBS CARE (HIGH) LORNE NELSON MD Aug 07, 2024 18:58
[2024-08-07] MEDS: cefTRIAXone 1GM/50ML D5W 50 ML IV ONE (19:40)
[2024-08-07] MEDS ORDERED: ONDANSETRON ODT 4 MG TAB PO PRN (19:45)
[2024-08-07] MEDS: SODIUM CHLORIDE 0.9% 1,000 ML IV SCH ×2 (20:13→22:53)
[2024-08-07 20:56] VITALS: BP 104/62; PULSE 90; RESP 18; TEMP 98; O2SAT 95
[2024-08-07] MEDS: IBUPROFEN 600 MG TAB PO SCH (21:16)
[2024-08-07 21:17] VITALS: PULSE 79; RESP 19; O2SAT 96
[2024-08-08] MEDS: HYDROcodone-ACET 5/325MG TAB PO PRN (02:05)
[2024-08-08 05:57] VITALS: BP 111/64; PULSE 87; RESP 18; TEMP 97.5; O2SAT 99
[2024-08-08 07:26] LABS: Basophils # (auto) 0 10 ^3/uL (0-0.2); Basophils % (auto) 0.1 % (0.0-2.0); Eosinophils # (auto) 0.1 10 ^3/uL (0-0.8); Eosinophils % (auto) 3.4 % (0.0-7.0); Hematocrit 37.7 % (36.0-46.0); Hemoglobin 12.5 g/dL (12.2-16.2); Lymphocytes # (auto) 0.3 10 ^3/uL (0.4-5.4); Lymphocytes % (auto) 12.7 % (10.0-50.0); Mean Corpuscular Hemoglobin 30.9 pg (28.0-32.0); Mean Corpuscular Hgb Conc. 33.2 g/dL (32.0-36.0); Mean Corpuscular Volume 93.1 fL (80.0-100.0); Monocytes # (auto) 0.3 10 ^3/uL (0-1.3); Monocytes % (auto) 15.2 % (0.0-12.0); Neutrophils # (auto) 1.5 10 ^3/uL (1.6-8.6); Neutrophils % (auto) 68.6 % (37.0-80.0); Nucleated Red Blood Cells % 0.2 %; Platelet Count (auto) 272 10^3/uL (140-450); Red Blood Cells 4.05 10^6/uL (4.0-5.20); Red Cell Distribution Width 15.3 % (11.8-14.3); White Blood Cell 2.2 10^3/uL (4.4-10.8)
[2024-08-08 07:29] LABS: Anion Gap 10 (5-15); Carbon Dioxide 22 mmol/L (20-31); Potassium 3.8 mmol/L (3.5-5.1); Sodium 141 mmol/L (136-145)
[2024-08-08 07:35] LABS: BUN/Creatinine Ratio 9.7 (10.0-20.0); Blood Urea Nitrogen 9 mg/dL (9-23); Calcium 8.4 mg/dL (8.7-10.4); Chloride 109 mmol/L (98-107); Glucose 95 mg/dL (74-106)
[2024-08-08 08:00] VITALS: PULSE 67; RESP 15; O2SAT 97
[2024-08-08] MEDS: cefTRIAXone 1GM/50ML D5W 50 ML IV SCH (10:55)
--- NOTE | 2024-08-08 18:53 | DVHPN2 ---
Subjective Overnight events noted. Patient is complaining of left flank pain. Reviewed: Care Plan Changes from previous H/P or p: No Changes Eyes: No Pain, No Vision change, No Conjunctivae inflammation, No Eyelid inflammation, No Other, No Redness ENT: No Ear pain, No Ear discharge, No Nose pain, No Nose discharge, No Nose congestion, No Mouth pain, No Mouth swelling, No Throat pain, No Throat swelling, No Other Cardiovascular: No Chest Pain, No Palpitations, No Orthopnea, No Paroxysmal Noc. Dyspnea, No Edema, No Lt Headedness, No Other Respiratory: No Cough, No Dry, No Shortness of breath, No SOB with excertion, No Wheezing, No Hemoptysis, No Pleuritic Pain, No Sputum, No Other Gastrointestinal: No Nausea, No Vomiting, No Abdominal Pain, No Diarrhea, No Constipation, No Melena, No Hematochezia, No Other Genitourinary: Dysuria, Frequency, Incontinence; No Hematuria, No Retention, No Other Musculoskeletal: No other, No neck pain, No shoulder pain, No arm pain, No back pain, No hand pain, No leg pain, No foot pain Skin: No Rash, No Lesions, No Jaundice, No Bruising, No Other Objective Vitals Vital Signs Date Time Temp Pulse Resp B/P (MAP) Pulse Ox O2 Delivery O2 Flow Rate FiO2 08/08/24 18:46 98.6 75 16 98/64 (75) 97 98.6 08/08/24 08:00 Room Air* 0 21 Intake/Output Intake and Output 08/08/24 07:00 Intake Total 50 ml Balance 50 ml Intake IV Total 50 ml Exam HEENT pupils are reactive Neck is supple CV is S1-S2 regular rate and rhythm Respiratory diminished breath sounds bases GI positive bowel sounds positive left CVA tenderness none on Extremity no edema IRON 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 no motor deficit Medications Current Medications Medications Dose Ordered Sig/Martha Route Start Time Stop Time Status Last Admin Dose Admin Ibuprofen 600 mg Q8HR PO 08/07/24 22:00 08/08/24 14:32 600 MG Ondansetron HCl 4 mg Q6HR PRN PO 08/07/24 19:45 Ceftriaxone Sodium 50 ml @ 100 mls/hr DAILY IV 08/08/24 10:00 08/08/24 10:55 100 MLS/HR Lorazepam 0.5 mg Q6HP PRN PO 08/07/24 18:45 Al Hydrox/Mg Hydrox/Simethicone 30 ml Q6HP PRN PO 08/07/24 18:45 Metoclopramide HCl 10 mg Q4HP PRN IV 08/07/24 18:45 Docusate Sodium 100 mg BIDPRN PRN PO 08/07/24 18:45 Acetaminophen 650 mg Q6HP PRN PO 08/07/24 18:45 Temazepam 15 mg QHSP PRN PO 08/07/24 18:45 Morphine Sulfate 2 mg Q4HPRN PRN IV 08/07/24 18:45 Acetaminophen/ Hydrocodone Bitart 1 tab Q4HP PRN PO 08/07/24 19:45 08/08/24 17:21 1 TAB Sodium Chloride 1,000 ml @ 125 mls/hr Q8H IV 08/07/24 20:45 08/08/24 12:45 125 MLS/HR Laboratory Results Laboratory Tests 08/08/24 06:10 Chemistry Test 08/08/24 06:10 Calcium Level 8.4 mg/dL (8.7-10.4) L Urinalysis Test 08/07/24 16:10 Urine Color Yellow (Yellow) Urine Clarity Turbid (Clear) H Urine pH 6.0 (5.0-9.0) Urine Specific [place] 1.028 (1.001-1.035) Urine Protein 1+ (Negative) H Urine Ketones 1+ (Negative) H Urine Blood Negative /uL (Negative) Urine Nitrite Negative (Negative) Urine Bilirubin Negative (Negative) Urine Urobilinogen 6 mg/dL (Negative) Urine Leukocyte Esterase Negative /uL (Negative) Urine RBC 32 /hpf (0 - 4) Urine WBC 3 /hpf (0 - 5) Urine Squamous Epithelial Cells Mod /hpf (<5) Urine Bacteria Few /hpf (None Seen) H Urine Mucus Few (None Seen) Urine Glucose Normal mg/dL (Normal) Assessment/Plan Assessment/Plan 29-year-old female presented to the hospital with left flank pain dysuria found to have 1. Acute pyelonephritis 2. Left flank pain secondary to 1. 3. UTI 4. Morbid obesity class III -continue IV antibiotics, follow up urine culture, CT abdomen and pelvis Plan discussed with: Patient My Orders Orders - ALICIA RIVAS MD Procedure Category Date Status Time Ct Ab Pel Wo Con-No CT 08/08/24 Verified Oral Or Iv 18:50 Date of Service: Aug 08, 2024 Billing Provider: ALICIA RIVAS MD Common Visit Codes: [id number] INP/OBS CARE(MOD) ALICIA RIVAS MD Aug 08, 2024 18:53
--- NOTE | 2024-08-08 21:21 | DVH ---
CT CT AB PEL WO CON-NO ORAL OR IV INDICATION: Left flank pain. EXAM DATE: 08/08/2024 08:36 PM COMPARISON: CT ABD PELVIS WO CONTRAST on DOS: 12/26/20, CT ABD PELVIS WO CONTRAST on DOS: 12/21/20 RADIATION DOSE: CTDIvol: 22 mGy, DLP: 1323 mGy*cm PROCEDURE: Helical CT images were obtained of the abdomen and pelvis without IV contrast Sagittal an d coronal reconstructions are provided. ORAL CONTRAST: None. ADDITIONAL IMAGES / REFORMATS: None All CT scans at this medical facility are performed using dose modulation techniques as appropriate t o a performed exam including the following: Automated exposure control was utilized; adjustment of th e MA and/or KV according to patient size; and use of iterative reconstruction technique. FINDINGS: LUNG BASE: Bibasilar atelectasis. LIVER: Normal. GALLBLADDER AND BILIARY TREE: No calcified gallstones. Normal caliber wall. No intra- or extrahepatic biliary ductal dilation. PANCREAS: Normal. SPLEEN: Normal. BOWEL: Normal. Appendix not seen. ADRENALS: Normal. KIDNEYS AND URETER: Punctate nonobstructive left kidney stone. BLADDER: Normal. REPRODUCTIVE ORGANS: Normal. LYMPH NODES:No lymphadenopathy. PERITONEUM: No ascites or free air. No other fluid collection. VESSELS: Normal. RETROPERITONEUM: Normal. ABDOMINAL WALL: Normal. BONES: Normal. IMPRESSION: No acute intraabdominal abnormality. Punctate nonobstructive left kidney stone.
[2024-08-08 22:23] VITALS: BP 126/66; PULSE 94; RESP 20; TEMP 98.4; O2SAT 100
[2024-08-09 01:00] VITALS: BP 122/68; PULSE 105; RESP 18; TEMP 98.7; O2SAT 98
[2024-08-09 05:00] VITALS: BP 102/62; PULSE 80; RESP 16; TEMP 98.3; O2SAT 93
[2024-08-09] MEDS: MORPHINE SULFATE INJ 2 MG/ml SYRG IV PRN (05:29)
[2024-08-09 09:00] VITALS: BP 101/56; PULSE 86; RESP 20; TEMP 98; O2SAT 93
[2024-08-09 17:15] VITALS: BP 134/67; PULSE 94; RESP 20; TEMP 98; O2SAT 98
--- NOTE | 2024-08-09 17:22 | DVHPN2 ---
Subjective Overnight events noted. Patient is complaining of left flank pain. Reviewed: Care Plan Changes from previous H/P or p: No Changes Eyes: No Pain, No Vision change, No Conjunctivae inflammation, No Eyelid inflammation, No Other, No Redness ENT: No Ear pain, No Ear discharge, No Nose pain, No Nose discharge, No Nose congestion, No Mouth pain, No Mouth swelling, No Throat pain, No Throat swelling, No Other Cardiovascular: No Chest Pain, No Palpitations, No Orthopnea, No Paroxysmal Noc. Dyspnea, No Edema, No Lt Headedness, No Other Respiratory: No Cough, No Dry, No Shortness of breath, No SOB with excertion, No Wheezing, No Hemoptysis, No Pleuritic Pain, No Sputum, No Other Gastrointestinal: No Nausea, No Vomiting, No Abdominal Pain, No Diarrhea, No Constipation, No Melena, No Hematochezia, No Other Genitourinary: Dysuria, Frequency, Incontinence; No Hematuria, No Retention, No Other Musculoskeletal: No other, No neck pain, No shoulder pain, No arm pain, No back pain, No hand pain, No leg pain, No foot pain Skin: No Rash, No Lesions, No Jaundice, No Bruising, No Other Objective Vitals Vital Signs Date Time Temp Pulse Resp B/P (MAP) Pulse Ox O2 Delivery O2 Flow Rate FiO2 08/09/24 17:15 98.0 94 20 134/67 (89) 98 98.0 08/08/24 23:49 Room Air* 0 21 Intake/Output Intake and Output 08/09/24 07:00 Intake Total 50 ml Balance 50 ml IV Total 50 ml # Voids 1 Exam HEENT pupils are reactive Neck is supple CV is S1-S2 regular rate and rhythm Respiratory diminished breath sounds bases GI positive bowel sounds positive left CVA tenderness none on Extremity no edema 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 no motor deficit Medications Current Medications Medications Dose Ordered Sig/Martha Route Start Time Stop Time Status Last Admin Dose Admin Ibuprofen 600 mg Q8HR PO 08/07/24 22:00 08/09/24 14:55 600 MG Ondansetron HCl 4 mg Q6HR PRN PO 08/07/24 19:45 Ceftriaxone Sodium 50 ml @ 100 mls/hr DAILY IV 08/08/24 10:00 08/09/24 10:54 100 MLS/HR Lorazepam 0.5 mg Q6HP PRN PO 08/07/24 18:45 Al Hydrox/Mg Hydrox/Simethicone 30 ml Q6HP PRN PO 08/07/24 18:45 Metoclopramide HCl 10 mg Q4HP PRN IV 08/07/24 18:45 Docusate Sodium 100 mg BIDPRN PRN PO 08/07/24 18:45 Acetaminophen 650 mg Q6HP PRN PO 08/07/24 18:45 Temazepam 15 mg QHSP PRN PO 08/07/24 18:45 Morphine Sulfate 2 mg Q4HPRN PRN IV 08/07/24 18:45 08/09/24 16:29 2 MG Acetaminophen/ Hydrocodone Bitart 1 tab Q4HP PRN PO 08/07/24 19:45 08/09/24 04:14 1 TAB Sodium Chloride 1,000 ml @ 125 mls/hr Q8H IV 08/07/24 20:45 08/09/24 12:46 125 MLS/HR Laboratory Results Laboratory Tests 08/08/24 06:10 Urinalysis Test 08/07/24 16:10 Urine Color Yellow (Yellow) Urine Clarity Turbid (Clear) H Urine pH 6.0 (5.0-9.0) Urine Specific [place] 1.028 (1.001-1.035) Urine Protein 1+ (Negative) H Urine Ketones 1+ (Negative) H Urine Blood Negative /uL (Negative) Urine Nitrite Negative (Negative) Urine Bilirubin Negative (Negative) Urine Urobilinogen 6 mg/dL (Negative) Urine Leukocyte Esterase Negative /uL (Negative) Urine RBC 32 /hpf (0 - 4) Urine WBC 3 /hpf (0 - 5) Urine Squamous Epithelial Cells Mod /hpf (<5) Urine Bacteria Few /hpf (None Seen) H Urine Mucus Few (None Seen) Urine Glucose Normal mg/dL (Normal) Assessment/Plan Assessment/Plan 29-year-old female presented to the hospital with left flank pain dysuria found to have 1. Acute pyelonephritis 2. Left flank pain secondary to 1. 3. UTI 4. Morbid obesity class III 5. Developmental delay -continue IV antibiotics, follow up urine culture, CT abdomen and pelvis reviewed which shows no acute pathology besides punctate nonobstructing left kidney stone Plan discussed with: Patient My Orders Orders - ALICIA RIVAS MD Procedure Category Date Status Time Ct Ab Pel Wo Con-No CT 08/08/24 Resulted Oral Or Iv 18:50 Date of Service: Aug 09, 2024 Billing Provider: ALICIA RIVAS MD Common Visit Codes: [id number] INP/OBS CARE(MOD) ALICIA RIVAS MD Aug 09, 2024 17:22
[2024-08-09 21:00] VITALS: BP 101/50; PULSE 92; RESP 16; TEMP 98.1; O2SAT 97
[2024-08-10 01:00] VITALS: BP 99/49; PULSE 82; RESP 16; TEMP 98; O2SAT 96
[2024-08-10 05:00] VITALS: BP 125/72; PULSE 82; RESP 16; TEMP 97.8; O2SAT 98
[2024-08-10 09:00] VITALS: BP 111/72; PULSE 81; RESP 16; TEMP 97.8; O2SAT 99
--- NOTE | 2024-08-10 11:28 | DVHPN2 ---
Reviewed: Care Plan Eyes: No Pain, No Vision change, No Conjunctivae inflammation, No Eyelid inflammation, No Other, No Redness ENT: No Ear pain, No Ear discharge, No Nose pain, No Nose discharge, No Nose congestion, No Mouth pain, No Mouth swelling, No Throat pain, No Throat swelling, No Other Cardiovascular: No Chest Pain, No Palpitations, No Orthopnea, No Paroxysmal Noc. Dyspnea, No Edema, No Lt Headedness, No Other Respiratory: No Cough, No Dry, No Shortness of breath, No SOB with excertion, No Wheezing, No Hemoptysis, No Pleuritic Pain, No Sputum, No Other Gastrointestinal: No Nausea, No Vomiting, No Abdominal Pain, No Diarrhea, No Constipation, No Melena, No Hematochezia, No Other Genitourinary: Dysuria, Frequency, Incontinence; No Hematuria, No Retention, No Other Musculoskeletal: No other, No neck pain, No shoulder pain, No arm pain, No back pain, No hand pain, No leg pain, No foot pain Skin: No Rash, No Lesions, No Jaundice, No Bruising, No Other Objective Vitals Vital Signs Date Time Temp Pulse Resp B/P (MAP) Pulse Ox O2 Delivery O2 Flow Rate FiO2 08/10/24 09:00 97.8 81 16 111/72 (85) 99 97.8 08/09/24 23:49 Room Air* 0 21 Intake/Output Intake and Output 08/10/24 07:00 Intake Total 2370 ml Balance 2370 ml Intake Oral 1120 ml IV Total 1250 ml # Voids 6 Medications Current Medications Medications Dose Ordered Sig/Martha Route Start Time Stop Time Status Last Admin Dose Admin Ibuprofen 600 mg Q8HR PO 08/07/24 22:00 08/10/24 06:31 600 MG Ondansetron HCl 4 mg Q6HR PRN PO 08/07/24 19:45 Ceftriaxone Sodium 50 ml @ 100 mls/hr DAILY IV 08/08/24 10:00 08/10/24 11:12 100 MLS/HR Lorazepam 0.5 mg Q6HP PRN PO 08/07/24 18:45 Al Hydrox/Mg Hydrox/Simethicone 30 ml Q6HP PRN PO 08/07/24 18:45 Metoclopramide HCl 10 mg Q4HP PRN IV 08/07/24 18:45 Docusate Sodium 100 mg BIDPRN PRN PO 08/07/24 18:45 Acetaminophen 650 mg Q6HP PRN PO 08/07/24 18:45 Temazepam 15 mg QHSP PRN PO 08/07/24 18:45 Morphine Sulfate 2 mg Q4HPRN PRN IV 08/07/24 18:45 08/09/24 21:43 2 MG Acetaminophen/ Hydrocodone Bitart 1 tab Q4HP PRN PO 08/07/24 19:45 08/09/24 04:14 1 TAB Sodium Chloride 1,000 ml @ 125 mls/hr Q8H IV 08/07/24 20:45 08/10/24 03:23 125 MLS/HR Laboratory Results Laboratory Tests 08/08/24 06:10 Urinalysis Test 08/07/24 16:10 Urine Color Yellow (Yellow) Urine Clarity Turbid (Clear) H Urine pH 6.0 (5.0-9.0) Urine Specific [place] 1.028 (1.001-1.035) Urine Protein 1+ (Negative) H Urine Ketones 1+ (Negative) H Urine Blood Negative /uL (Negative) Urine Nitrite Negative (Negative) Urine Bilirubin Negative (Negative) Urine Urobilinogen 6 mg/dL (Negative) Urine Leukocyte Esterase Negative /uL (Negative) Urine RBC 32 /hpf (0 - 4) Urine WBC 3 /hpf (0 - 5) Urine Squamous Epithelial Cells Mod /hpf (<5) Urine Bacteria Few /hpf (None Seen) H Urine Mucus Few (None Seen) Urine Glucose Normal mg/dL (Normal) SUDHIR BREWER MD Aug 10, 2024 11:28
[2024-08-10 12:49] VITALS: BP 112/65; PULSE 86; RESP 16; TEMP 98.3; O2SAT 98
[2024-08-10] MEDS ORDERED: CEPH250C PO (14:23)
--- NOTE | 2024-08-10 14:25 | DVHDS2 ---
Discharge Summary Date of Admission Aug 07, 2024 at 18:35 Date of Discharge: Aug 10, 2024 Admitting Diagnosis 1. Acute pyelonephritis 2. Left flank pain secondary to 1. 3. UTI 4. Morbid obesity class III 5. Developmental delay Labs/Diagnostic Data: Laboratory Results Test 08/08/24 06:10 08/07/24 16:21 08/07/24 16:10 White Blood Count 2.2 10^3/uL (4.4-10.8) Red Blood Count 4.05 10^6/uL (4.0-5.20) Hemoglobin 12.5 g/dL (12.2-16.2) Hematocrit 37.7 % (36.0-46.0) Mean Corpuscular Volume 93.1 fL (80.0-100.0) Mean Corpuscular Hemoglobin 30.9 pg (28.0-32.0) Mean Corpuscular Hemoglobin Concent 33.2 g/dL (32.0-36.0) Red Cell Distribution Width 15.3 % (11.8-14.3) Platelet Count 272 10^3/uL (140-450) Mean Platelet Volume 9.7 fL (6.9-10.8) Neutrophils (%) (Auto) 68.6 % (37.0-80.0) Lymphocytes (%) (Auto) 12.7 % (10.0-50.0) Monocytes (%) (Auto) 15.2 % (0.0-12.0) Eosinophils (%) (Auto) 3.4 % (0.0-7.0) Basophils (%) (Auto) 0.1 % (0.0-2.0) Neutrophils # (Auto) 1.5 10 ^3/uL (1.6-8.6) Lymphocytes # (Auto) 0.3 10 ^3/uL (0.4-5.4) Monocytes # (Auto) 0.3 10 ^3/uL (0-1.3) Eosinophils # (Auto) 0.1 10 ^3/uL (0-0.8) Basophils # (Auto) 0 10 ^3/uL (0-0.2) Nucleated Red Blood Cells 0.2 % Sodium Level 141 mmol/L (136-145) Potassium Level 3.8 mmol/L (3.5-5.1) Chloride Level 109 mmol/L (98-107) Carbon Dioxide Level 22 mmol/L (20-31) Anion Gap 10 (5-15) Blood Urea Nitrogen 9 mg/dL (9-23) Creatinine 0.93 mg/dL (0.550-1.02) Glomerular Filtration Rate Calc 85 mL/min (>90) BUN/Creatinine Ratio 9.7 (10.0-20.0) Serum Glucose 95 mg/dL (74-106) Calcium Level 8.4 mg/dL (8.7-10.4) Total Bilirubin 0.6 mg/dL (0.2-1.0) Aspartate Amino Transferase (AST) 17 U/L (13-40) Alanine Aminotransferase (ALT) 10 U/L (7-40) Alkaline Phosphatase 63 U/L (46-116) Total Protein 7.7 g/dL (5.7-8.2) Albumin 4.4 g/dL (3.2-4.8) Urine Color Yellow (Yellow) Urine Clarity Turbid (Clear) Urine pH 6.0 (5.0-9.0) Urine Specific [place] 1.028 (1.001-1.035) Urine Protein 1+ (Negative) Urine Ketones 1+ (Negative) Urine Blood Negative /uL (Negative) Urine Nitrite Negative (Negative) Urine Bilirubin Negative (Negative) Urine Urobilinogen 6 mg/dL (Negative) Urine Leukocyte Esterase Negative /uL (Negative) Urine RBC 32 /hpf (0 - 4) Urine WBC 3 /hpf (0 - 5) Urine Squamous Epithelial Cells Mod /hpf (<5) Urine Bacteria Few /hpf (None Seen) Urine Mucus Few (None Seen) Urine Glucose Normal mg/dL (Normal) Other Laboratory Tests 08/08/24 06:10 Brief Hx & Hospital Course: This is a 29 years old morbid obesity patient with history of mental delay, recurrent urinary tract infection, history previous kidney stone come to emergency department because of right flank pain. Patient said she had this issue 2-3 weeks and was diagnosis with urinary tract infection and giving antibiotic orally but did not improve. The patient was admitted. The patient was put on IV antibiotic with Rocephin 1 g IV q.day. today the patient did not complain of any flank pain. Urine culture preliminary report showed no growth. No nausea or vomiting. I am going to discharge him home. Advised him to follow up with primary care physician 1-2 weeks. Activity as tolerated. Diet home diet. Continuing oral antibiotic with Keflex 250 mg p.o. q.6 hours for seven days Physical exam: HEENT: Normocephalic atraumatic pupils equal react to light and accommodation. Extraocular muscles intact, conjunctiva pink, oropharynx moist, no thrush, no exudate. Lymphatic: No lymphadenopathy Cardiovascular exam: S1, S2 was heard. No murmurs, rubs, gallops Lung: Clear on auscultation bilaterally, no wheeze, rale, rhonchi. GI: Abdominal soft, nondistended, nontenderness, positive bowel sounds. Extremity: No crepitus, cyanosis, edema. Pedal pulses present bilateral. Full range of motion. Skin: Normal turgor, no rash. Psych: Alert, oriented x3. Neurology: No focal deficits, cranial nerve II to XII grossly intact. This medical document was created using an electronic medical record system with [employer] direct computerized dictation system. Although this document has been carefully reviewed, there may still be some phonetic and typographical errors. These areas are purely typographical due to imperfections of the software programs, and do not reflect any compromise in the patient's medical care. Condition at Discharge: Stable Final Diagnosis/Problems List 1. Acute pyelonephritis 2. Left flank pain secondary to 1. 3. UTI 4. Morbid obesity class III 5. Developmental delay Discharge Disposition: Home Discharge Instruct/Medications Diet: Regular Activity: No Restrictions, As Tolerated Follow Up/Referral: pcp 1-2 weeks Medications: Keflex 250mg qid Discharge Statement: "Patient was advised to return to the ER or call 911 if any headaches, dizziness, shortness of breath, chest pain, abdominal pain, bleeding, fevers, or worsening of medical condition. Patient was counseled about treatment plan, medications, possible side effects, patientverbalized understanding. All questions were answered to the best of my ability. This discharge took greater then 30 minutes in planning, reviewing documentation, counseling the patient, and discussing with other team members." ASSESSMENT ASSESSMENT Assessment uti Date of Service: Aug 10, 2024 Billing Provider: SUDHIR BREWER MD Common Visit Codes: 49751-CBC/OBS DISCH DAY >30min SUDHIR BREWER MD Aug 10, 2024 14:25
[2024-08-10 16:43] VITALS: BP 106/64; PULSE 81; RESP 17; TEMP 98.3; O2SAT 99
[2024-08-11] MEDS ORDERED: IBU600T PO (13:37)
== END 2024-08-10 17:00 | disposition home or self-care (01) | DRG 463 ==
LOC: ER 15:42 → OVERFLOW 18:35 → EAST 08-08 21:22
PROVIDERS: ADMIT Hospitalist; ATTEND Internal Medicine
DX: N10 Acute pyelonephritis (principal); N17.9 Acute kidney failure, unspecified; E66.01 Morbid (severe) obesity due to excess calories; R62.50 Unspecified lack of expected normal physiological development in childhood; Z87.442 Personal history of urinary calculi; Z87.440 Personal history of urinary (tract) infections; Z79.1 Long term (current) use of non-steroidal anti-inflammatories (NSAID); Z79.899 Other long term (current) drug therapy; Z79.891 Long term (current) use of opiate analgesic; Z68.41 Body mass index [BMI] 40.0-44.9, adult
CPT/HCPCS: 36415; 74176; 80048; 80053; 81001; 85025; 87086; 96361; 96365; 96375; G0378; J1885; J2405

== ENCOUNTER 2024-08-11 10:55 | Emergency (ER) | payer MEDICAID ==
[~2024-08-11] VITALS: Ht 160 cm; Wt 107.4 kg
[~2024-08-11 10:55] MED LIST changes: +CEPH250C PO; -HYDR-4902 PO; -HYDR1TAB97 PO; -IBUP1TAB5 PO; -ONDA-144 PO
--- NOTE | 2024-08-11 11:08 | ED.PDOC ---
General HPI Comments 29 year old female brought in by mother presents to the ED with chief complaint of flank pain. Mother reports patient had been admitted to the ED last Saturday due to having a urine and kidney infection, being given IV antibiotics until she was discharged yesterday. Mother relays that the patient had no prescriptions sent home and she started to experience full body aches this morning with associated flank pain and nausea. Patient denies any vomiting, diarrhea, fever, chills, or chest pain. Time Seen by MD: 11:03 Primary Care Provider: [facility] Ramirez notes: Nurses Notes, Medications, Allergies Allergies: Coded Allergies: NO KNOWN ALLERGIES (Unverified , 10/31/15) Home Meds Active Scripts Cephalexin (KEFLEX CAPSULE) 250 Mg Cp, 1 CAP PO QID, #28 CAP Prov:SUDHIR BREWER MD 08/10/24 Information Source: Patient Mode of Arrival: Ambulatory Severity: Moderate Inability to void: None Timing: Hours Duration: Since onset Prehospital treatment: None Onset: Spontaneous Symptoms: None History of: UTI, Kidney stone, Other (Pyelonephritis) Location: (R) Flank, (L)Flank Modifying factors: None associated signs and symptoms: Nausea, Flank Pain Past Medical History PAST MEDICAL HISTORY: Kidney Stones, UTI'S Surgical History: Denies all surgeries EMBROIDERY SUPERVISOR History: No Pertinent EMBROIDERY SUPERVISOR History Family History Family History: Reviewed,noncontributory to illness Social History Smoker: Non-Smoker Alcohol: Denies ETOH Use Drugs: Denies Drug Use Lives In: Home Constitutional: reports: malaise; denies: chills, diaphoresis, fatigue, fever, sweats, weakness, others EENTM: denies: blurred vision, double vision, ear bleeding, ear discharge, ear drainage, ear pain, ear ringing, eye pain, eye redness, hearing loss, mouth pain, mouth swelling, nasal discharge, nose bleeding, nose congestion, nose pain, photophobia, tearing, throat pain, throat swelling, voice changes, others Respiratory: denies: cough, hemoptysis, orthopnea, SOB at rest, shortness of b reath, SOB with excertion, stridor, wheezing, others Cardiovascular: denies: chest pain, dizzy spells, diaphoresis, Dyspnea on exertion, edema, irregular heart beat, left arm pain, lightheadedness, palpitations, PND, syncope, others Gastrointestinal: reports: nausea; denies: abdomen distended, abdominal pain, blood streaked bowels, constipated, diarrhea, dysphagia, difficulty swallowing, hematemesis, melena, poor appetite, poor fluid intake, rectal bleeding, rectal pain, vomiting, others Genitourinary: reports: flank pain; denies: abnormal vagina bleeding, burning, dyspareunia, dysuria, frequency, hematuria, incontinence, pain, , vagina discharge, urgency, others Neurological: denies: dizziness, fainting, headache, left sided numbness, left sided weakness, numbness, paresthesia, pre-existing deficit, right sided numbness, right sided weakness, seizure, speech problems, tingling, tremors, weakness, others Musculoskeletal: denies: back pain, gout, joint pain, joint swelling, muscle pain, muscle stiffness, neck pain, others Integumetry: denies: bruises, change in color, change in hair/nails, dryness, laceration, lesions, lumps, rash, wounds, others Allergic/Immunocompromised: denies: Difficulty Healing, Frequent Infections, Hives, Itching, others Hematologic/Lymphatic: denies: anemia, blood clots, easy bleeding, easy bruising, swollen glands, others Endocrine: denies: excessive hunger, excessive sweating, excessive thirst, excessive urination, flushing, intolerance to cold, intolerance to heat, unexplained weight gain, unexplained weight loss, others Psychiatric: denies: anxiety, bipolar disorder, depression, hopeless, panic disorder, schizophrenia, sleepless, suicidal, others All Other Systems: Reviewed and Negative Physical Exam General Appearance: No Apparent Distress, Normal HEENT: Normal ENT Inspection, Pharynx Normal, TMs Normal Neck: Full Range of Motion, Non-Tender, Normal, Normal Inspection Respiratory: Chest Non-Tender, Lungs Clear, No Accessory Muscle Use, No Respiratory Distress, Normal Breath Sounds Cardiovascular: No Edema, No JVD, No Murmur, No Gallop, Normal Peripheral Pulses, Regular Rate/Rhythm Breast Exam: Deferred Gastrointestinal: No Organomegaly, Non Tender, No Pulsatile Mass, Normal Bowel Sounds, Soft Genitalia: Deferred Pelvic: Deferred Rectal: Deferred Extremities: No calf tenderness, Normal capillary refill, Normal inspection, Normal range of motion, Non-tender, No pedal edema Musculoskeletal : Apperance: Normal Neurologic: Alert, auto radiator mechanic II-XII nml as Tested, No Motor Deficits, Normal Affect, Normal Mood, No Sensory Deficits Cerebellar Function: Normal Reflexes: Normal Skin: Dry, Normal Color, Warm Lymphatic: No Adenopathy Was a procedure done? Was a procedure done?: No Differential Diagnosis Kidney stone (Female): Pyelonephritis, Renal failure, Urolithiasis Urinary Problem (Male): UTI X-Ray, Labs, Meds, VS Vital Signs Date Time Temp Pulse Resp B/P (MAP) Pulse Ox O2 Delivery O2 Flow Rate FiO2 08/11/24 11:07 98.0 98 20 129/82 (98) 98 Lab Test 08/11/24 11:10 08/11/24 10:00 Range/Units White Blood Count 6.1 # 4.4-10.8 10^3/uL Red Blood Count 4.33 4.0-5.20 10^6/uL Hemoglobin 13.1 12.2-16.2 g/dL Hematocrit 39.3 36.0-46.0 % Mean Corpuscular Volume 90.7 80.0-100.0 fL Mean Corpuscular Hemoglobin 30.2 28.0-32.0 pg Mean Corpuscular Hemoglobin Concent 33.3 32.0-36.0 g/dL Red Cell Distribution Width 15.1 H 11.8-14.3 % Platelet Count 367 140-450 10^3/uL Mean Platelet Volume 9.1 6.9-10.8 fL Neutrophils (%) (Auto) 61.0 37.0-80.0 % Lymphocytes (%) (Auto) 22.8 10.0-50.0 % Monocytes (%) (Auto) 13.8 H 0.0-12.0 % Eosinophils (%) (Auto) 2.1 0.0-7.0 % Basophils (%) (Auto) 0.3 0.0-2.0 % Neutrophils # (Auto) 3.7 1.6-8.6 10 ^3/uL Lymphocytes # (Auto) 1.4 0.4-5.4 10 ^3/uL Monocytes # (Auto) 0.8 0-1.3 10 ^3/uL Eosinophils # (Auto) 0.1 0-0.8 10 ^3/uL Basophils # (Auto) 0 0-0.2 10 ^3/uL Nucleated Red Blood Cells 0.1 % Sodium Level 139 136-145 mmol/L Potassium Level 3.8 3.5-5.1 mmol/L Chloride Level 106 98-107 mmol/L Carbon Dioxide Level 26 20-31 mmol/L Anion Gap 7 5-15 Blood Urea Nitrogen 7 L 9-23 mg/dL Creatinine 0.77 0.550-1.02 mg/dL Glomerular Filtration Rate Calc 106 >90 mL/min BUN/Creatinine Ratio 9.1 L 10.0-20.0 Serum Glucose 100 74-106 mg/dL Calcium Level 9.7 8.7-10.4 mg/dL Urine Color Light-yellow Yellow Urine Clarity Turbid H Clear Urine pH 6.0 5.0-9.0 Urine Specific [place] 1.017 1.001-1.035 Urine Protein Trace H Negative Urine Ketones 2+ H Negative Urine Blood Trace H Negative /uL Urine Nitrite Negative Negative Urine Bilirubin Negative Negative Urine Urobilinogen Normal Negative mg/dL Urine Leukocyte Esterase Negative Negative /uL Urine RBC 5 0 - 4 /hpf Urine WBC 1 0 - 5 /hpf Urine Squamous Epithelial Cells Few <5 /hpf Urine Bacteria Mod H None Seen /hpf Urine Mucus Few None Seen Urine Glucose Normal Normal mg/dL Current Medications Medications (Trade) Dose Ordered Sig/Martha Route Start Time Stop Time Status Last Admin Ketorolac Tromethamine (Toradol Injection) 30 mg ONCE ONCE IM 08/11/24 11:00 08/11/24 11:04 DC 08/11/24 11:43 - I reviewed the following notes from patient's past medical encounters: Admission on 08/07/24 for pyelonephritis. - The following tests were ordered, and results were reviewed by me: UA, BMP, CBC - Additional information was gathered from interviewing the following independent Historian: Mother - I discussed treatments and results with medical personnel and mother. Time of 1ST Reevaluation: 12:03 Reevaluation 1ST: Unchanged Patient Education/Counseling: Diagnosis, Treatment, Prognosis, Need For Follow Up Family Education/Counseling: Diagnosis, Treatment, Prognosis, Need For Follow Up Departure 1 Departure Time of Disposition: 13:36 Impression: Primary Impression: Myalgia Disposition: 01 HOME / SELF CARE / HOMELESS Condition: Good e-Prescriptions Ibuprofen Micronized (MOTRIN TABLET) 600 Mg Tb 600 MG PO TID PRN, #40 TAB *Black box warning-NSAIDS can increase risk of TN & hypertension, GI irritation, ulceration, bleed, perferation. Do not use post cardiac surgery. Use short duration/lowest effective dose. Prov: KATHY JAMES MD 08/11/24 Discharged With: Relative (Mother) Critical Care Note Critical Care Time?: No Stability Stability form required: No Heart Score Heart Score: Heart Score Response (Comments) Value History N/A 0 EKG N/A 0 Age N/A 0 Risk Factors N/A 0 Troponin N/A 0 Total 0 I personally scribed for KATHY JAMES MD ([email or web address]) on 08/11/24 at 11:08. Electronically submitted by Benjamin Cornejo ([email or web address]). I personally scribed for KATHY JAMES MD ([email or web address]) on 08/11/24 at 11:10. Electronically submitted by Benjamin Cornejo ([email or web address]). KATHY JAMES MD Aug 11, 2024 11:08
[2024-08-11 11:25] LABS: Basophils # (auto) 0 10 ^3/uL (0-0.2); Basophils % (auto) 0.3 % (0.0-2.0); Eosinophils # (auto) 0.1 10 ^3/uL (0-0.8); Eosinophils % (auto) 2.1 % (0.0-7.0); Hematocrit 39.3 % (36.0-46.0); Hemoglobin 13.1 g/dL (12.2-16.2); Lymphocytes # (auto) 1.4 10 ^3/uL (0.4-5.4); Lymphocytes % (auto) 22.8 % (10.0-50.0); Mean Corpuscular Hemoglobin 30.2 pg (28.0-32.0); Mean Corpuscular Hgb Conc. 33.3 g/dL (32.0-36.0); Mean Corpuscular Volume 90.7 fL (80.0-100.0); Monocytes # (auto) 0.8 10 ^3/uL (0-1.3); Monocytes % (auto) 13.8 % (0.0-12.0); Neutrophils # (auto) 3.7 10 ^3/uL (1.6-8.6); Nucleated Red Blood Cells % 0.1 %; Platelet Count (auto) 367 10^3/uL (140-450); Red Blood Cells 4.33 10^6/uL (4.0-5.20); Red Cell Distribution Width 15.1 % (11.8-14.3); White Blood Cell 6.1 10^3/uL (4.4-10.8)
[2024-08-11 11:31] LABS: Chloride 106 mmol/L (98-107); Potassium 3.8 mmol/L (3.5-5.1); Sodium 139 mmol/L (136-145)
[2024-08-11 11:33] LABS: Anion Gap 7 (5-15); Calcium 9.7 mg/dL (8.7-10.4); Carbon Dioxide 26 mmol/L (20-31)
[2024-08-11 11:38] LABS: BUN/Creatinine Ratio 9.1 (10.0-20.0); Glucose 100 mg/dL (74-106)
[2024-08-11 11:41] LABS: Urine Bacteria MOD /hpf (None Seen); Urine Blood TRACE /uL (Negative); Urine Clarity Turbid (Clear); Urine Color Light-Yellow (Yellow); Urine Mucus FEW (None Seen); Urine Protein, UAD TRACE (Negative); Urine Specific Gravity 1.017 (1.001-1.035); Urine Urobilinogen Normal (Negative); Urine WBC 1 /hpf (0 - 5)
[2024-08-11 11:43] LABS: Blood Urea Nitrogen 7 mg/dL (9-23)
[2024-08-11] MEDS: KETOROLAC TROMETH 30 MG/ML 1ML VIAL IM ONE (11:43)
[2024-08-11] MEDS ORDERED: IBU600T PO (13:37)
[2024-08-11 13:53] VITALS: BP 140/94; PULSE 93; RESP 16; TEMP 98.7; O2SAT 95
== END 2024-08-11 13:57 | disposition home or self-care (01) ==
LOC: ER 10:55
DX: M79.10 Myalgia, unspecified site (principal); Z87.442 Personal history of urinary calculi
CPT/HCPCS: 36415; 80048; 81001; 85025; 96372; 99283; J1885

== ENCOUNTER 2024-08-24 15:04 | Inpatient (IN) | payer MEDICAID ==
[~2024-08-24] VITALS: Ht 160 cm; Wt 106.5 kg
[~2024-08-24 15:04] MED LIST changes: +IBU600T PO
--- NOTE | 2024-08-24 16:44 | ED.PDOC ---
History of Present Illness HPI Comments 29 y/o F, with a Hx of developmental intellectual delay, nephrolithiasis, UTI's, and morbid obesity, presents with grandmother/field worker for c/o bilateral flank pain, nausea, vomiting, and subjective fever, today. Per grandmother/field worker, patient is stated to have been having flank pain since 07/24/24 and has been evaluated and admitted for kidney stones since then and now, with no relief or improvement. She is also reported to have onset of nausea, vomiting, and subjective fever for the past 3x days. Patient ranks pain a 06/11. Since last hospital visit and admission, patient has not followed up with outpatient urology. Patient has no reported hematemesis, chills, diarrhea, or other associated symptoms or modifiers at this time. Chief Complaint: Flank Pain Time Seen by MD: 16:00 Primary Care Provider: [facility] Ramirez Notes: Nurses Notes, Medications, Allergies Allergies: Coded Allergies: NO KNOWN ALLERGIES (Unverified , 10/31/15) Home Meds Active Scripts Ibuprofen Micronized (MOTRIN TABLET) 600 Mg Tb, 600 MG PO TID PRN, #40 TAB *Black box warning-NSAIDS can increase risk of DE & hypertension, GI irritation, ulceration, bleed, perferation. Do not use post cardiac surgery. Use short duration/lowest effective dose. Prov:KATHY JAMES MD 08/11/24 Cephalexin (KEFLEX CAPSULE) 250 Mg Cp, 1 CAP PO QID, #28 CAP Prov:SUDHIR BREWER MD 08/10/24 Information Source: Relative (Grand mother) Mode of Arrival: Ambulatory Severity: Moderate Timing: Weeks Duration: Since onset Prehospital treatment: None Past Medical History PAST MEDICAL HISTORY: Kidney Stones, UTI'S Past Medical History (Other): developmental intellectual delay Surgical History (Other): right ankle Sx PHARMACEUTICAL WORKER History: No Pertinent PHARMACEUTICAL WORKER History Family History Family History: Reviewed,noncontributory to illness Social History Smoker: Non-Smoker Alcohol: Denies ETOH Use Drugs: Denies Drug Use Lives In: Home Constitutional: denies: chills, diaphoresis, fatigue, fever, malaise, sweats, weakness, others EENTM: denies: blurred vision, double vision, ear bleeding, ear discharge, ear drainage, ear pain, ear ringing, eye pain, eye redness, hearing loss, mouth pain, mouth swelling, nasal discharge, nose bleeding, nose congestion, nose pain, photophobia, tearing, throat pain, throat swelling, voice changes, others Respiratory: denies: cough, hemoptysis, orthopnea, SOB at rest, shortness of breath, SOB with excertion, stridor, wheezing, others Cardiovascular: denies: chest pain, dizzy spells, diaphoresis, Dyspnea on exertion, edema, irregular heart beat, left arm pain, lightheadedness, palpitations, PND, syncope, others Gastrointestinal: reports: nausea, vomiting; denies: abdomen distended, abdominal pain, blood streaked bowels, constipated, diarrhea, dysphagia, difficulty swallowing, hematemesis, melena, poor appetite, poor fluid intake, rectal bleeding, rectal pain, others Genitourinary: reports: flank pain (bilateral sides); denies: abnormal vagina bleeding, burning, dyspareunia, dysuria, frequency, hematuria, incontinence, pain, , vagina discharge, urgency, others Neurological: denies: dizziness, fainting, headache, left sided numbness, left sided weakness, numbness, paresthesia, pre-existing deficit, right sided numbness, right sided weakness, seizure, speech problems, tingling, tremors, weakness, others Musculoskeletal: denies: back pain, gout, joint pain, joint swelling, muscle pain, muscle stiffness, neck pain, others Integumetry: denies: bruises, change in color, change in hair/nails, dryness, laceration, lesions, lumps, rash, wounds, others Allergic/Immunocompromised: denies: Difficulty Healing, Frequent Infections, Hives, Itching, others Hematologic/Lymphatic: denies: anemia, blood clots, easy bleeding, easy bruising, swollen glands, others Endocrine: denies: excessive hunger, excessive sweating, excessive thirst, excessive urination, flushing, intolerance to cold, intolerance to heat, unexp lained weight gain, unexplained weight loss, others Psychiatric: denies: anxiety, bipolar disorder, depression, hopeless, panic disorder, schizophrenia, sleepless, suicidal, others All Other Systems: Reviewed and Negative Physical Exam General Appearance: Moderate Distress, Obese HEENT: Normal ENT Inspection, Pharynx Normal, TMs Normal Neck: Full Range of Motion, Non-Tender, Normal, Normal Inspection Respiratory: Chest Non-Tender, Lungs Clear, No Accessory Muscle Use, No Respiratory Distress, Normal Breath Sounds Cardiovascular: No Edema, No JVD, No Murmur, No Gallop, Normal Peripheral Pulses, Regular Rate/Rhythm Breast Exam: Deferred Gastrointestinal: No Organomegaly, Non Tender, No Pulsatile Mass, Normal Bowel Sounds, Soft Genitalia: Deferred Pelvic: Deferred Rectal: Deferred Extremities: No calf tenderness, Normal capillary refill, No pedal edema Musculoskeletal : Apperance: Normal Neurologic: Alert, thermal cutting tracer machine operator II-XII nml as Tested, No Motor Deficits, Normal Affect, Normal Mood, No Sensory Deficits Cerebellar Function: Normal Reflexes: Normal Skin: Dry, Normal Color, Warm Lymphatic: No Adenopathy Was a procedure done? Was a procedure done?: No Differential Dx Considerations may include: nephrolithiasis, pyelonephritis, cystitis, ovarian torsion, ovarian cysts, PID, viral syndrome X-Ray, Labs, Meds, VS Vital Signs Date Time Temp Pulse Resp B/P (MAP) Pulse Ox O2 Delivery O2 Flow Rate FiO2 08/24/24 17:14 98.5 101 18 110/71 (84) 95 98.5 08/24/24 17:08 17 98 Room Air* 0 21 08/24/24 15:30 98.4 117 24 139/91 (107) 100 Lab Test 08/24/24 17:25 08/24/24 17:21 Range/Units White Blood Count 9.7 4.4-10.8 10^3/uL Red Blood Count 4.67 4.0-5.20 10^6/uL Hemoglobin 14.0 12.2-16.2 g/dL Hematocrit 42.6 36.0-46.0 % Mean Corpuscular Volume 91.2 80.0-100.0 fL Mean Corpuscular Hemoglobin 30.0 28.0-32.0 pg Mean Corpuscular Hemoglobin Concent 32.9 32.0-36.0 g/dL Red Cell Distribution Width 14.7 H 11.8-14.3 % Platelet Count 338 140-450 10^3/uL Mean Platelet Volume 9.3 6.9-10.8 fL Neutrophils (%) (Auto) 73.0 37.0-80.0 % Lymphocytes (%) (Auto) 17.6 10.0-50.0 % Monocytes (%) (Auto) 8.3 0.0-12.0 % Eosinophils (%) (Auto) 0.4 0.0-7.0 % Basophils (%) (Auto) 0.7 0.0-2.0 % Neutrophils # (Auto) 7.1 1.6-8.6 10 ^3/uL Lymphocytes # (Auto) 1.7 0.4-5.4 10 ^3/uL Monocytes # (Auto) 0.8 0-1.3 10 ^3/uL Eosinophils # (Auto) 0 0-0.8 10 ^3/uL Basophils # (Auto) 0.1 0-0.2 10 ^3/uL Nucleated Red Blood Cells 0.1 % Sodium Level 137 136-145 mmol/L Potassium Level 4.2 3.5-5.1 mmol/L Chloride Level 107 98-107 mmol/L Carbon Dioxide Level 20 20-31 mmol/L Anion Gap 10 5-15 Blood Urea Nitrogen 9 9-23 mg/dL Creatinine 0.98 0.550-1.02 mg/dL Glomerular Filtration Rate Calc 80 >90 mL/min BUN/Creatinine Ratio 9.2 L 10.0-20.0 Serum Glucose 99 74-106 mg/dL Calcium Level 10.0 8.7-10.4 mg/dL Urine Color Brown H Yellow Urine Clarity Ex.turbid Clear Urine pH 6.0 5.0-9.0 Urine Specific [place] 1.036 H 1.001-1.035 Urine Protein 2+ H Negative Urine Ketones 1+ H Negative Urine Blood 3+ H Negative /uL Urine Nitrite Negative Negative Urine Bilirubin Negative Negative Urine Urobilinogen Normal Negative mg/dL Urine Leukocyte Esterase 2+ Negative /uL Urine RBC 5446 0 - 4 /hpf Urine WBC 117 0 - 5 /hpf Urine WBC Clumps Present None Seen /hpf Urine Squamous Epithelial Cells Few <5 /hpf Urine Bacteria Few H None Seen /hpf Urine Mucus Few None Seen Urine Glucose Normal Normal mg/dL Current Medications Medications (Trade) Dose Ordered Sig/Martha Route Start Time Stop Time Status Last Admin Sodium Chloride 500 ml @ 500 mls/hr Q1H ONCE IVB 08/24/24 16:15 08/24/24 17:14 DC 08/24/24 17:31 Ketorolac Tromethamine (Toradol Injection) 30 mg ONCE ONCE IV 08/24/24 16:15 08/24/24 16:16 DC 08/24/24 17:31 CT scan of the abdomen and pelvis shows:IMPRESSION: 1. Few nonobstructive sub 5 mm right renal calculi. The largest is a stable calculus in the lower pole measuring 3 mm. 2. 3.1 cm left ovarian cyst. The patient was given normal saline at a 500 cc bolus. The patient was given ketorolac 30 mg IV push The urine test is positive for a significant UTI with WBC clumps. The patient's CBC is within normal limits The chemistry panel is within normal limits The patient was being admitted with a diagnosis of intractable pain along with the pyelonephritis most likely stemming from the renal stone A urology consult will be obtained. We discussed the findings with the patient and she is in agreement with the management. Images Reviewed?: Images reviewed and evaluated by me Time of 1ST Reevaluation: 16:30 Reevaluation 1ST: Unchanged Patient Education/Counseling: Other (patient is intellectually disabled ) Family Education/Counseling: Diagnosis, Treatment, Prognosis Departure 1 Departure Time of Disposition: 18:20 Impression: Primary Impression: Left flank pain Additional Impressions: Renal stones Acute pyelonephritis Disposition: ADMITTED INPATIENT Admit to: Med Surg Condition: Fair Critical Care Note Critical Care Time?: No Stability Stability form required: Yes Unstable for transfer: ED Physician Assesment (Clinical assesment) Heart Score Heart Score: Heart Score Response (Comments) Value History N/A 0 EKG N/A 0 Age N/A 0 Risk Factors N/A 0 Troponin N/A 0 Total 0 I personally scribed for ERICK COLEMAN MD ([email or web address]) on 08/24/24 at 16:44. Electronically submitted by Vamsi Mcmahan ([email or web address]). ERICK COLEMAN MD Aug 24, 2024 16:44
--- NOTE | 2024-08-24 16:46 | DVH ---
CT ABDOMEN AND PELVIS WITHOUT CONTRAST CLINICAL HISTORY: left flank pain TECHNIQUE: Multiple contiguous axial images of the abdomen and pelvis without intravenous contrast. The images were reformatted degenerate coronal and sagittal reconstructions. All CT scans at this medical facility are performed using dose modulation techniques as appropriate t o a performed exam including the following:Automated exposure control was utilized; adjustment of the MA and/or KV according to patient size; and use of iterative reconstruction technique. Radiation Dose Information: CT Dose: CTDI volume is 23 mGy. Dose-length product is 1351 mGy*cm Comparison: CT CT AB PEL WO CON-NO ORAL OR IV on DOS: 08/08/24, CT ABD PELVIS WO CONTRAST on DOS: 12/26 FINDINGS: Evaluation of the abdomen and pelvis is limited without intravenous contrast. There are few sub 5 mm right renal calculi, largest in the lower pole measuring 3 mm, stable from th e prior study. There is no evidence of left renal calculus. There is no hydronephrosis. There is no ureteral calculus or hydroureter. The liver, gallbladder, pancreas, adrenal glands, and spleen appear within normal limits. There is no free fluid or free air. The stomach grossly appears unremarkable. The small and large bowel loops demonstrate normal caliber . The abdominal aorta and IVC appear within normal limits. The bladder appears unremarkable for the degree of distention. Uterus appears within normal limits. T here is a 3.1 cm left ovarian cyst.. There is no gross evidence of a pelvic mass. There is no free f luid collection. Lung bases are clear. There is no acute osseous abnormality. IMPRESSION: 1. Few nonobstructive sub 5 mm right renal calculi. The largest is a stable calculus in the lower po le measuring 3 mm. 2. 3.1 cm left ovarian cyst. HS:Y
[2024-08-24 17:08] VITALS: RESP 17; O2SAT 98
[2024-08-24] MEDS: SODIUM CHLORIDE 0.9% 500 ML IVB ONE (17:31)
[2024-08-24] MEDS: KETOROLAC TROMETH 30 MG/ML 1ML VIAL IV ONE (17:31)
[2024-08-24 17:44] LABS: Urine Bacteria FEW /hpf (None Seen); Urine Blood 3+ /uL (Negative); Urine Clarity Ex.Turbid (Clear); Urine Color Brown (Yellow); Urine Mucus FEW (None Seen); Urine Protein, UAD 2+ (Negative); Urine Specific Gravity 1.036 (1.001-1.035); Urine Urobilinogen Normal (Negative); Urine WBC 117 /hpf (0 - 5); Urine WBC Clumps PRESENT /hpf (None Seen)
[2024-08-24 17:46] LABS: Basophils # (auto) 0.1 10 ^3/uL (0-0.2); Basophils % (auto) 0.7 % (0.0-2.0); Eosinophils # (auto) 0 10 ^3/uL (0-0.8); Eosinophils % (auto) 0.4 % (0.0-7.0); Hematocrit 42.6 % (36.0-46.0); Lymphocytes # (auto) 1.7 10 ^3/uL (0.4-5.4); Lymphocytes % (auto) 17.6 % (10.0-50.0); Mean Corpuscular Hgb Conc. 32.9 g/dL (32.0-36.0); Mean Corpuscular Volume 91.2 fL (80.0-100.0); Monocytes # (auto) 0.8 10 ^3/uL (0-1.3); Monocytes % (auto) 8.3 % (0.0-12.0); Neutrophils # (auto) 7.1 10 ^3/uL (1.6-8.6); Nucleated Red Blood Cells % 0.1 %; Platelet Count (auto) 338 10^3/uL (140-450); Red Blood Cells 4.67 10^6/uL (4.0-5.20); Red Cell Distribution Width 14.7 % (11.8-14.3); White Blood Cell 9.7 10^3/uL (4.4-10.8)
[2024-08-24 17:54] LABS: Chloride 107 mmol/L (98-107); Potassium 4.2 mmol/L (3.5-5.1); Sodium 137 mmol/L (136-145)
[2024-08-24 17:55] LABS: Anion Gap 10 (5-15); Carbon Dioxide 20 mmol/L (20-31)
[2024-08-24 18:00] LABS: BUN/Creatinine Ratio 9.2 (10.0-20.0); Blood Urea Nitrogen 9 mg/dL (9-23); Glucose 99 mg/dL (74-106)
[2024-08-24] MEDS: cefTRIAXone 1GM/50ML D5W 50 ML IV ONE (18:38)
[2024-08-24] MEDS ORDERED: TEMAZEPAM 15 MG CAP PO PRN (19:15)
[2024-08-24] MEDS ORDERED: ONDANSETRON HCL 4 MG/2 ML VIAL IV PRN (19:15)
[2024-08-24] MEDS ORDERED: LORazepam 0.5 MG TAB PO PRN (19:15)
--- NOTE | 2024-08-24 22:55 | DVHHP2 ---
History of Present Illness Reason for Visit: Flank pain History of Present Illness 29-year-old female with a history of recurrent UTIs presents for evaluation of bilateral flank pain. Patient developmentally delayed is accompanied by her sales account coordinator. There has been complaints of bilateral flank pain, nausea and vomiting they have been ongoing on for the past two days. This also associated intermittent fever. No hematuria noted. No other acute complaints. Past Medical History Urinary tract infection, kidney stones, developmentally delayed Past Surgical History Right ankle surgery Family History Noncontributory Smoke: No ALCOHOL: none Drugs: None Lives: with Family Review of Systems Review of Systems Review of systems are currently negative otherwise addressed in HPI. Allergies: Coded Allergies: NO KNOWN ALLERGIES (Unverified , 10/31/15) Medications Current Medications Medications Dose Ordered Sig/Martha Route Start Time Stop Time Status Last Admin Dose Admin Lorazepam 0.5 mg Q8HP PRN PO 08/24/24 19:15 Ceftriaxone Sodium 50 ml @ 100 mls/hr DAILY@09 IV 08/25/24 09:00 Acetaminophen/ Hydrocodone Bitart 1 tab Q4HP PRN PO 08/24/24 19:15 Temazepam 15 mg QHSP PRN PO 08/24/24 19:15 Ondansetron HCl 4 mg Q4HP PRN IV 08/24/24 19:15 Acetaminophen 650 mg Q6HP PRN PO 08/24/24 19:15 Exam Vital Signs Vital Signs Date Time Temp Pulse Resp B/P (MAP) Pulse Ox O2 Delivery O2 Flow Rate FiO2 08/24/24 17:14 98.5 101 18 110/71 (84) 95 98.5 08/24/24 17:08 Room Air* 0 21 Exam Gen: 29-year-old female in mild distress. Skin: Warm, dry, normal color and texture, no rash. HEENT: Normocephalic atraumatic, mucous membranes moist and pink. Neck: Cervical and supraclavicular nodes normal without enlargement, trachea is midline, thyroid gland is normal without masses. Pulmonary: Clear to auscultation and percussion bilaterally. Cardiac: Regular rate and rhythm. No murmur Abdomen: Soft, nontender, nondistended, bowel sounds present all 4 quadrants, no guarding, no rigidity, no organomegaly. Extremities: No cyanosis, clubbing, no edema Neuro: Cranial nerves II through XII grossly intact, normal affect and speech, no focal motor deficits. Labs/Xrays ORDERING PHYSICIAN: ERICK COLEMAN MD PROCEDURE(s): ABPL - CT AB PEL WO CON-NO ORAL OR IV REASON: left flank pain ORDER NUMBER(s): [id number], ACCESSION NUMBER(s): [id number] CT ABDOMEN AND PELVIS WITHOUT CONTRAST CLINICAL HISTORY: left flank pain TECHNIQUE: Multiple contiguous axial images of the abdomen and pelvis without intravenous contrast. The images were reformatted degenerate coronal and sagittal reconstructions. All CT scans at this medical facility are performed using dose modulation techniques as appropriate to a performed exam including the following:Automated exposure control was utilized; adjustment of the MA and/or KV according to patient size; and use of iterative reconstruction technique. Radiation Dose Information: CT Dose: CTDI volume is 23 mGy. Dose-length product is 1351 mGy*cm Comparison: CT CT AB PEL WO CON-NO ORAL OR IV on DOS: 08/08/24, CT ABD PELVIS WO CONTRAST on DOS: 12/26/20 FINDINGS: Evaluation of the abdomen and pelvis is limited without intravenous contrast. There are few sub 5 mm right renal calculi, largest in the lower pole measuring 3 mm, stable from the prior study. There is no evidence of left renal calculus. There is no hydronephrosis. There is no ureteral calculus or hydroureter. The liver, gallbladder, pancreas, adrenal glands, and spleen appear within normal limits. There is no free fluid or free air. The stomach grossly appears unremarkable. The small and large bowel loops demonstrate normal caliber. The abdominal aorta and IVC appear within normal limits. The bladder appears unremarkable for the degree of distention. Uterus appears within normal limits. There is a 3.1 cm left ovarian cyst.. There is no gross evidence of a pelvic mass. There is no free fluid collection. Lung bases are clear. There is no acute osseous abnormality. IMPRESSION: 1. Few nonobstructive sub 5 mm right renal calculi. The largest is a stable calculus in the lower pole measuring 3 mm. 2. 3.1 cm left ovarian cyst. HS:Y Labs Test 08/24/24 17:25 08/24/24 17:21 Range/Units White Blood Count 9.7 4.4-10.8 10^3/uL Red Blood Count 4.67 4.0-5.20 10^6/uL Hemoglobin 14.0 12.2-16.2 g/dL Hematocrit 42.6 36.0-46.0 % Mean Corpuscular Volume 91.2 80.0-100.0 fL Mean Corpuscular Hemoglobin 30.0 28.0-32.0 pg Mean Corpuscular Hemoglobin Concent 32.9 32.0-36.0 g/dL Red Cell Distribution Width 14.7 H 11.8-14.3 % Platelet Count 338 140-450 10^3/uL Mean Platelet Volume 9.3 6.9-10.8 fL Neutrophils (%) (Auto) 73.0 37.0-80.0 % Lymphocytes (%) (Auto) 17.6 10.0-50.0 % Monocytes (%) (Auto) 8.3 0.0-12.0 % Eosinophils (%) (Auto) 0.4 0.0-7.0 % Basophils (%) (Auto) 0.7 0.0-2.0 % Neutrophils # (Auto) 7.1 1.6-8.6 10 ^3/uL Lymphocytes # (Auto) 1.7 0.4-5.4 10 ^3/uL Monocytes # (Auto) 0.8 0-1.3 10 ^3/uL Eosinophils # (Auto) 0 0-0.8 10 ^3/uL Basophils # (Auto) 0.1 0-0.2 10 ^3/uL Nucleated Red Blood Cells 0.1 % Sodium Level 137 136-145 mmol/L Potassium Level 4.2 3.5-5.1 mmol/L Chloride Level 107 98-107 mmol/L Carbon Dioxide Level 20 20-31 mmol/L Anion Gap 10 5-15 Blood Urea Nitrogen 9 9-23 mg/dL Creatinine 0.98 0.550-1.02 mg/dL Glomerular Filtration Rate Calc 80 >90 mL/min BUN/Creatinine Ratio 9.2 L 10.0-20.0 Serum Glucose 99 74-106 mg/dL Calcium Level 10.0 8.7-10.4 mg/dL Urine Color Brown H Yellow Urine Clarity Ex.turbid Clear Urine pH 6.0 5.0-9.0 Urine Specific [place] 1.036 H 1.001-1.035 Urine Protein 2+ H Negative Urine Ketones 1+ H Negative Urine Blood 3+ H Negative /uL Urine Nitrite Negative Negative Urine Bilirubin Negative Negative Urine Urobilinogen Normal Negative mg/dL Urine Leukocyte Esterase 2+ Negative /uL Urine RBC 5446 0 - 4 /hpf Urine WBC 117 0 - 5 /hpf Urine WBC Clumps Present None Seen /hpf Urine Squamous Epithelial Cells Few <5 /hpf Urine Bacteria Few H None Seen /hpf Urine Mucus Few None Seen Urine Glucose Normal Normal mg/dL Assessment/Plan Assessment/Plan Assessment Acute pyelonephritis Developmentally delayed Morbid obesity Plan Admit the patient to [facility] to the hospitalist Urine bacterial culture pending Levaquin Resume home medications Continue treatment per orders. Plan discussed with: Patient My Orders Orders - HUSEYIN MONREAL Procedure Category Date Status Time Lorazepam Tablet PHA 08/24/24 In Process (Ativan Tablet) 19:15 Ceftriaxone 1gm/50ml PHA 08/25/24 In Process D5w (Rocephin) 09:00 Urine Bacterial OPHELIA 08/24/24 In Process Culture 19:13 Regular Diet DIET 08/25/24 Transmitted Breakfast Basic Metabolic Panel LAB 08/25/24 Verified 04:00 Admit ADMIT 08/24/24 Transmitted 19:13 Hydrocodone-Acet PHA 08/24/24 In Process 5/325mg Tab ([place] 19:15 Temazepam (Restoril) PHA 08/24/24 In Process 19:15 Ondansetron Hcl PHA 08/24/24 In Process (Zofran) 19:15 Condition: Stable TONY 08/24/24 In Process 19:13 Acetaminophen Tablet PHA 08/24/24 In Process (Tylenol Tablet) 19:15 Bedrest With Bathroom TONY 08/24/24 In Process Privileg 19:13 Date of Service: Aug 24, 2024 Billing Provider: HUSEYIN MONREAL Common Visit Codes: [id number] INP/OBS CARE (MOD) HUSEYIN MONREAL Aug 24, 2024 22:55
[2024-08-24] MEDS: HYDROcodone-ACET 5/325MG TAB PO PRN (23:27)
[2024-08-25 04:33] LABS: Potassium 4.5 mmol/L (3.5-5.1); Sodium 139 mmol/L (136-145)
[2024-08-25 04:34] LABS: Anion Gap 8 (5-15); Calcium 9.5 mg/dL (8.7-10.4); Carbon Dioxide 23 mmol/L (20-31)
[2024-08-25 04:39] LABS: BUN/Creatinine Ratio 18.1 (10.0-20.0); Blood Urea Nitrogen 13 mg/dL (9-23); Glucose 89 mg/dL (74-106)
[2024-08-25 04:44] LABS: Chloride 108 mmol/L (98-107)
[2024-08-25] MEDS ORDERED: cefTRIAXone 1GM/50ML D5W 50 ML IV SCH (09:00)
[2024-08-25] MEDS: levoFLOXacin 750MG 150 ML IV SCH (09:33)
--- NOTE | 2024-08-25 11:51 | DVH ---
CHEST RADIOGRAPH Indication: cough Technique: Single frontal view of the chest was obtained Comparison: None FINDINGS: Lines and Tubes: None Lungs: No focal consolidation. Pleura: No effusion. No pneumothorax. Cardiomediastinal contours: Unremarkable Bones: No acute osseous abnormality. IMPRESSION: No acute cardiopulmonary disease.
[2024-08-25 12:49] VITALS: BP 113/56; PULSE 99; RESP 18; TEMP 97.6; O2SAT 98
--- NOTE | 2024-08-25 13:31 | DVHPNRES ---
Progress Note Date Seen: Aug 25, 2024 Resident Creating Document: PERCY VARGAS RESIDENT Medical Necessity Reason Pt with a Central, PICC or Fol: No Subjective Review of Systems Patient is a 29-year-old female with past medical history of, obstructive uropathy, renal calculi, left hydronephrosis, recurrent UTIs, dysmenorrhea, who came in due to flank pain that has been ongoing since 07/24/2024. Patient's grandmother/hot roll laminator she has been experiencing flank pain, nausea, vomiting for the past 3 days. Patient is crying with a sad affect and rates her pain as 10/10. Patient had 2 ER visits for similar symptoms in the last 2 weeks and received Macrobid during the 1st visit and Bactrim during the 2nd visit, however, patient's grandmother states completion of both antibiotics was done in time without any relief. Past surgical history: Ankle surgery Home medications: Denies Past Hospitalization: 08/07/2024 pyelonephritis Social & Personal history: Patient lives with her grandmother who is also her hot roll laminator. Denies using tobacco, alcohol, drugs. Allergies: denies Patient seen and examined at bedside. Patient is alert and oriented to time, place person and responding to all questions. General: fatigue, fever Eyes: No Pain, No Vision change, No Conjunctivae inflammation, No Eyelid inflammation, No Other, No Redness ENT: No Ear pain, No Ear discharge, No Nose pain, Nose discharge, No Nose congestion, No Mouth pain, No Mouth swelling, No Throat pain, No Throat swelling, No Other Cardiovascular: No Chest Pain, No Palpitations, No Orthopnea, No Paroxysmal No Dyspnea, No Edema, No Lt Headedness, No Other Respiratory: No Cough, No Dry, No Shortness of breath, No SOB with exertion, No Wheezing, No Hemoptysis, No Pleuritic Pain, No Sputum, No Other Gastrointestinal: No Nausea, Vomiting, No Abdominal Pain, Diarrhea, No Constipation, No Melena, No Hematochezia, No Other Genitourinary: Dysuria, No Frequency, No Incontinence, No Hematuria, No Retention, No Other Musculoskeletal: No other, No neck pain, No shoulder pain, No arm pain, No back pain, No hand pain, No leg pain, No foot pain Skin: No Rash, No Lesions, No Jaundice, No Bruising, No Other Objective vital signs Vital Sign Date Time Temp Pulse Resp B/P (MAP) Pulse Ox O2 Delivery O2 Flow Rate FiO2 08/25/24 12:49 97.6 99 18 113/56 (75) 98 97.6 08/25/24 07:39 Room Air* 0 21 Total Intake and Output 08/24/24 08/24/24 08/25/24 15:00 23:00 07:00 Intake Total 550 ml Balance 550 ml medications Current Medications Medications Dose Ordered Sig/Martha Route Start Time Stop Time Status Last Admin Dose Admin Acetaminophen/ Hydrocodone Bitart 1 tab Q4HP PRN PO 08/24/24 19:15 08/25/24 06:05 1 TAB Ondansetron HCl 4 mg Q4HP PRN IV 08/24/24 19:15 Acetaminophen 650 mg Q6HP PRN PO 08/24/24 19:15 Levofloxacin/ Dextrose 150 ml @ 100 mls/hr DAILY IV 08/25/24 10:00 09/01/24 09:59 08/25/24 09:33 100 MLS/HR Ketorolac Tromethamine 15 mg BID IV 08/25/24 22:00 08/30/24 21:59 Sodium Chloride 1,000 ml @ 150 mls/hr Q6H40M IV 08/25/24 11:30 08/25/24 16:00 Examination General Appearance: Cooperative. Well developed. Well nourished. Patient has g eneralized diffuse body aches Head Exam: Normal inspection Neck Exam: Normal inspection. Non-tender. Normal alignment Pulmonary/Respiratory: Chest non-tender. Clear bilateral breath sounds, no crackles, no wheezing. Cardiovascular/Chest: Regular rate and rhythm. No murmurs. No JVD. Peripheral Pulses: 2+ Radial (R). 2+ Radial (L). 2+ Pedal (R). 2+ Pedal (L) Abdominal Exam: Normal bowel sounds. Soft. normal abdomen, no visible veins, No hepatospenomegaly. No masses. Generalized abdominal tenderness Genitourinary: Bilateral CVA tenderness Ankle Exam: Negative ankle edema Lower extremities: Negative lower extremity edema Neuro/Mental Status: A&O x4. Coherent. Thoughts/Psych: Normal thought pattern. Appropriate mood and affect. Good judgement and insight Skin Exam: Normal inspection. Normal color. Warm. Dry laboratory and microbiology Laboratory Tests 08/25/24 03:39 08/24/24 17:25 Test 08/25/24 03:39 Range/Units Serum Glucose 89 74-106 mg/dL Microbiology Date/Time Source Procedure Growth Status 08/24/24 17:21 Voided Urine Urine Culture - Preliminary Resulted Labs and/or images reviewed: Labs reviewed by me, Image(s) reviewed by me Problem List/Assessment/Plan Problem List/Assessment/Plan Possible complicated UTI, failed outpatient therapy Nonobstructing renal calculi History of obstructive uropathy - CT AP: Few nonobstructive sub 5 mm right renal calculi. The largest is a stable calculus in the lower pole measuring 3 mm. 3.1 cm left ovarian cyst. - IV Levaquin - IV NS at 150 cc/hour - IV ketorolac b.i.d. scheduled - acetaminophen 650 mg q.6 as needed History of down syndrome - monitor Left buttock pressure ulcer, POA - wound consult Goals of care: Full code, discussed for >16 minutes on 08/25/24 Plan discussed with patient Plan discussed with Dr. Salazar Plan discussed with: Patient, Other (RN) My Orders My Orders Orders - PERCY VARGAS Procedure Category Date Status Time Ketorolac Injection PHA 08/25/24 In Process (Toradol Injection) 22:00 Sodium Chloride 0.9% PHA 08/25/24 In Process 11:30 Chest Portable XY 08/25/24 Resulted 11:24 * Wound Consult CONS 08/25/24 Transmitted Date of Service: Aug 25, 2024 Billing Provider: VITA SALAZAR MD Common Visit Codes: [id number] INP/OBS CARE(HIGH) PERCY VARGAS Aug 25, 2024 13:31 VITA SALAZAR MD Aug 27, 2024 09:04
[2024-08-25 13:53] VITALS: PULSE 74; RESP 20; O2SAT 98
[2024-08-25 16:44] VITALS: BP 117/70; PULSE 76; RESP 20; TEMP 98.2; O2SAT 99
[2024-08-25] MEDS: SODIUM CHLORIDE 0.9% 1,000 ML IV SCH (18:27)
[2024-08-25 20:00] VITALS: PULSE 70; RESP 17; O2SAT 97
[2024-08-25 21:00] VITALS: BP 122/72; PULSE 70; RESP 17; TEMP 98.1; O2SAT 97
[2024-08-25] MEDS: KETOROLAC TROMETH 30 MG/ML 1ML VIAL IV SCH (22:14)
[2024-08-25] MEDS: CYCLOBENZAPRINE HCL 10 MG TAB PO ONE (23:26)
[2024-08-26] VITALS (8 sets, daily range): BP systolic 114–131; BP diastolic 69–85; PULSE 70–80; RESP 12–18; TEMP 98–98.7; O2SAT 16–100
[2024-08-26] MEDS: ACETAMINOPHEN 325 MG TAB PO PRN (06:34)
[2024-08-26 06:46] LABS: Urine Bacteria None Seen /hpf (None Seen)
[2024-08-26 07:09] LABS: Phencyclidine Screen, Urine Neg (NEGATIVE)
[2024-08-26 07:10] LABS: Barbiturate Scree,Urine Neg (NEGATIVE); Opiate Scree,Urine Pos (NEGATIVE)
[2024-08-26 07:11] LABS: Amphetamine Screen, Urine Neg (NEGATIVE); Benzodiazephine Screen, Urine Neg (NEGATIVE); Cannabinoid Screen, Urine Neg (NEGATIVE); Cocaine Screen, Urine Neg (NEGATIVE)
[2024-08-26 07:12] LABS: Urine Blood Negative /uL (Negative); Urine Clarity Clear (Clear); Urine Color Yellow (Yellow); Urine Mucus FEW (None Seen); Urine Protein, UAD TRACE (Negative); Urine Specific Gravity 1.026 (1.001-1.035); Urine Urobilinogen Normal (Negative); Urine WBC 9 /hpf (0 - 5); Urine pH 5.5 (5.0-9.0)
[2024-08-26 07:12] LABS: Basophils # (auto) 0.1 10 ^3/uL (0-0.2); Basophils % (auto) 0.9 % (0.0-2.0); Eosinophils # (auto) 0.1 10 ^3/uL (0-0.8); Eosinophils % (auto) 1.4 % (0.0-7.0); Hematocrit 36.9 % (36.0-46.0); Hemoglobin 12.4 g/dL (12.2-16.2); Lymphocytes # (auto) 1.9 10 ^3/uL (0.4-5.4); Lymphocytes % (auto) 32.7 % (10.0-50.0); Mean Corpuscular Hemoglobin 29.8 pg (28.0-32.0); Mean Corpuscular Hgb Conc. 33.6 g/dL (32.0-36.0); Mean Corpuscular Volume 88.9 fL (80.0-100.0); Monocytes # (auto) 0.7 10 ^3/uL (0-1.3); Monocytes % (auto) 12.3 % (0.0-12.0); Neutrophils % (auto) 52.7 % (37.0-80.0); Nucleated Red Blood Cells % 0.1 %; Platelet Count (auto) 384 10^3/uL (140-450); Red Blood Cells 4.15 10^6/uL (4.0-5.20); Red Cell Distribution Width 14.2 % (11.8-14.3); White Blood Cell 5.7 10^3/uL (4.4-10.8)
[2024-08-26 07:17] LABS: COVID19 ANTIGEN SOFIA FIA NEGATIVE (NEGATIVE); Rapid Influenza A Negative (Negative); Rapid Influenza B Negative (Negative)
[2024-08-26] MEDS: CYCLOBENZAPRINE HCL 10 MG TAB PO SCH (15:17)
--- NOTE | 2024-08-26 20:18 | DVHPNRES ---
Progress Note Date Seen: Aug 26, 2024 Resident Creating Document: PERCY VARGAS RESIDENT Medical Necessity Reason Pt with a Central, PICC or Fol: No Subjective Review of Systems Patient is a 29-year-old female with past medical history of, obstructive uropathy, renal calculi, left hydronephrosis, recurrent UTIs, dysmenorrhea, who came in due to flank pain that has been ongoing since 07/24/2024. Patient's grandmother/network systems integrator she has been experiencing flank pain, nausea, vomiting for the past 3 days. Patient is crying with a sad affect and rates her pain as 10/10. Patient had 2 ER visits for similar symptoms in the last 2 weeks and received Macrobid during the 1st visit and Bactrim during the 2nd visit, however, patient's grandmother states completion of both antibiotics was done in time without any relief. Past surgical history: Ankle surgery Home medications: Denies Past Hospitalization: 08/07/2024 pyelonephritis Social & Personal history: Patient lives with her grandmother who is also her network systems integrator. Denies using tobacco, alcohol, drugs. Allergies: denies Patient seen and examined at bedside. Patient is alert and oriented to time, place person and responding to all questions. Notes improvement in pain after cyclobenzaprine. Objective vital signs Vital Sign Date Time Temp Pulse Resp B/P (MAP) Pulse Ox O2 Delivery O2 Flow Rate FiO2 08/26/24 17:26 98.2 76 16 130/76 (94) 100 98.2 08/26/24 08:00 Room Air* 0 21 Total Intake and Output 08/25/24 08/25/24 08/26/24 15:00 23:00 07:00 Intake Total 150 ml 200 ml 1110 ml Output Total 0 ml Balance 150 ml 200 ml 1110 ml medications Current Medications Medications Dose Ordered Sig/Martha Route Start Time Stop Time Status Last Admin Dose Admin Ondansetron HCl 4 mg Q4HP PRN IV 08/24/24 19:15 Acetaminophen 650 mg Q6HP PRN PO 08/24/24 19:15 08/26/24 15:17 650 MG Levofloxacin/ Dextrose 150 ml @ 100 mls/hr DAILY IV 08/25/24 10:00 09/01/24 09:59 08/26/24 10:18 100 MLS/HR Ketorolac Tromethamine 15 mg BID IV 08/25/24 22:00 08/30/24 21:59 08/26/24 10:18 15 MG Cyclobenzaprine HCl 5 mg TID PO 08/26/24 14:00 08/26/24 15:17 5 MG Examination General Appearance: Cooperative. Well developed. Well nourished. Patient has g eneralized diffuse body aches Head Exam: Normal inspection Neck Exam: Normal inspection. Non-tender. Normal alignment Pulmonary/Respiratory: Chest non-tender. Clear bilateral breath sounds, no crackles, no wheezing. Cardiovascular/Chest: Regular rate and rhythm. No murmurs. No JVD. Peripheral Pulses: 2+ Radial (R). 2+ Radial (L). 2+ Pedal (R). 2+ Pedal (L) Abdominal Exam: Normal bowel sounds. Soft. normal abdomen, no visible veins, No hepatospenomegaly. No masses. Generalized abdominal tenderness Genitourinary: Bilateral CVA tenderness, upper back spasms Ankle Exam: Negative ankle edema Lower extremities: Negative lower extremity edema Neuro/Mental Status: A&O x4. Coherent. Thoughts/Psych: Normal thought pattern. Appropriate mood and affect. Good judgement and insight Skin Exam: Normal inspection. Normal color. Warm. Dry laboratory and microbiology Laboratory Tests 08/26/24 05:45 08/25/24 03:39 Test 08/25/24 03:39 Range/Units Serum Glucose 89 74-106 mg/dL Microbiology Date/Time Source Procedure Growth Status 08/26/24 05:54 Nose MRSA Screen - Final Complete 08/24/24 17:21 Voided Urine Urine Culture - Final Complete Labs and/or images reviewed: Labs reviewed by me, Image(s) reviewed by me Problem List/Assessment/Plan Problem List/Assessment/Plan Possible complicated UTI, failed outpatient therapy Nonobstructing renal calculi History of obstructive uropathy - CT AP: Few nonobstructive sub 5 mm right renal calculi. The largest is a stable calculus in the lower pole measuring 3 mm. 3.1 cm left ovarian cyst. - IV Levaquin - IV NS at 150 cc/hour - IV ketorolac b.i.d. scheduled - acetaminophen 650 mg q.6 as needed History of down syndrome - monitor Left buttock pressure ulcer, POA - wound consult Goals of care: Full code, discussed for >16 minutes on 08/25/24 Plan discussed with patient Plan discussed with Dr. Salazar Plan discussed with: Patient, Other (RN, grandmother ) My Orders My Orders Orders - PERYC VARGAS RESIDENT Procedure Category Date Status Time Cyclobenzaprine PHA 08/26/24 In Process Tablet (Flexeril 14:00 * Dietary Consult CONS 08/26/24 Transmitted 14:26 Cleanse Wound With TONY 08/26/24 In Process Wound Clean 10:35 Date of Service: Aug 26, 2024 Billing Provider: VITA SALAZAR MD Common Visit Codes: [id number] INP/OBS CARE(HIGH) PERCY VARGAS Aug 26, 2024 20:18 VITA SALAZAR MD Aug 27, 2024 09:05
[2024-08-27] VITALS (8 sets, daily range): BP systolic 114–135; BP diastolic 67–93; PULSE 63–88; RESP 16–93; TEMP 97.8–99; O2SAT 95–100
[2024-08-28] VITALS (7 sets, daily range): BP systolic 104–134; BP diastolic 55–83; PULSE 63–81; RESP 17–19; TEMP 36.8; O2SAT 98–100
--- NOTE | 2024-08-28 06:16 | DVHPNRES ---
Progress Note Date Seen: Aug 27, 2024 Resident Creating Document: PERCY VARGAS RESIDENT Medical Necessity Reason Pt with a Central, PICC or Fol: No Subjective Review of Systems Patient is a 29-year-old female with past medical history of, obstructive uropathy, renal calculi, left hydronephrosis, recurrent UTIs, dysmenorrhea, who came in due to flank pain that has been ongoing since 07/24/2024. Patient's grandmother/research intern she has been experiencing flank pain, nausea, vomiting for the past 3 days. Patient is crying with a sad affect and rates her pain as 10/10. Patient had 2 ER visits for similar symptoms in the last 2 weeks and received Macrobid during the 1st visit and Bactrim during the 2nd visit, however, patient's grandmother states completion of both antibiotics was done in time without any relief. Past surgical history: Ankle surgery Home medications: Denies Past Hospitalization: 08/07/2024 pyelonephritis Social & Personal history: Patient lives with her grandmother who is also her research intern. Denies using tobacco, alcohol, drugs. Allergies: denies Patient seen and examined at bedside. Patient is alert and oriented to time, place person and responding to all questions. Pain has improved significantly today, patient ambulated in the hallway multiple times throughout the day which she noticed also improved her pain further. Patient does not feel ready for discharge and is requesting to stay another night. Objective vital signs Vital Sign Date Time Temp Pulse Resp B/P (MAP) Pulse Ox O2 Delivery O2 Flow Rate FiO2 08/28/24 05:00 98.3 63 19 122/79 (93) 98 98.3 08/27/24 20:00 Room Air* 0 21 Total Intake and Output 08/27/24 08/27/24 08/28/24 15:00 23:00 07:00 Intake Total 50 ml 100 ml Balance 50 ml 100 ml medications Current Medications Medications Dose Ordered Sig/Martha Route Start Time Stop Time Status Last Admin Dose Admin Ondansetron HCl 4 mg Q4HP PRN IV 08/24/24 19:15 Acetaminophen 650 mg Q6HP PRN PO 08/24/24 19:15 08/27/24 11:31 650 MG Levofloxacin/ Dextrose 150 ml @ 100 mls/hr DAILY IV 08/25/24 10:00 09/01/24 09:59 08/27/24 09:35 100 MLS/HR Ketorolac Tromethamine 15 mg BID IV 08/25/24 22:00 08/30/24 21:59 08/27/24 21:05 15 MG Cyclobenzaprine HCl 5 mg TID PO 08/26/24 14:00 08/28/24 05:28 5 MG Examination General Appearance: Cooperative. Well developed. Well nourished. Patient has g eneralized diffuse body aches Head Exam: Normal inspection Neck Exam: Normal inspection. Non-tender. Normal alignment Pulmonary/Respiratory: Chest non-tender. Clear bilateral breath sounds, no crackles, no wheezing. Cardiovascular/Chest: Regular rate and rhythm. No murmurs. No JVD. Peripheral Pulses: 2+ Radial (R). 2+ Radial (L). 2+ Pedal (R). 2+ Pedal (L) Abdominal Exam: Normal bowel sounds. Soft. normal abdomen, no visible veins, No hepatospenomegaly. No masses. Generalized abdominal tenderness Genitourinary: upper back spasms, improving Ankle Exam: Negative ankle edema Lower extremities: Negative lower extremity edema Neuro/Mental Status: A&O x4. Coherent. Thoughts/Psych: Normal thought pattern. Appropriate mood and affect. Good judgement and insight Skin Exam: Normal inspection. Normal color. Warm. Dry laboratory and microbiology Laboratory Tests 08/26/24 05:45 08/25/24 03:39 Test 08/25/24 03:39 Range/Units Serum Glucose 89 74-106 mg/dL Microbiology Date/Time Source Procedure Growth Status 08/26/24 06:20 Urine - Catheterized Urine Culture - Preliminary Resulted 08/26/24 05:54 Nose MRSA Screen - Final Complete Labs and/or images reviewed: Labs reviewed by me, Image(s) reviewed by me Problem List/Assessment/Plan Problem List/Assessment/Plan Possible complicated UTI, failed outpatient therapy Nonobstructing renal calculi History of obstructive uropathy - CT AP: Few nonobstructive sub 5 mm right renal calculi. The largest is a stable calculus in the lower pole measuring 3 mm. 3.1 cm left ovarian cyst. - IV Levaquin - IV NS at 150 cc/hour - IV ketorolac b.i.d. scheduled - acetaminophen 650 mg q.6 as needed History of down syndrome - monitor Left buttock pressure ulcer, POA - wound consult Goals of care: Full code, discussed for >16 minutes on 08/25/24 Plan discussed with patient Plan discussed with Dr. Salazar Plan discussed with: Patient, Other (Grandmother, RN) My Orders My Orders Orders - PERCY VARGAS RESIDENT Procedure Category Date Status Time Pt Request For Service PT 08/27/24 Logged 12:49 Dietary Evaluation Review Comments: A weight reduction diet is recommended Expected Outcomes/Goals: gradual weight loss, less wt-bearing at the buttock will help wounds healing at the area. less chances for having comobidities of obesity. Date of Service: Aug 27, 2024 Billing Provider: VITA SALAZAR MD Common Visit Codes: [id number] INP/OBS CARE(HIGH) PERCY VARGAS Aug 28, 2024 06:16 VITA SALAZAR MD Aug 28, 2024 08:58
--- NOTE | 2024-08-28 06:16 | DVHDSRES ---
Discharge Summary Date of Admission Resident Creating Document: PERCY VARGAS RESIDENT Aug 24, 2024 at 19:13 Date of Discharge: Aug 28, 2024 Admitting Diagnosis Flank pain, back pain, acute Labs/Diagnostic Data: Laboratory Results Test 08/26/24 06:20 08/26/24 05:54 08/26/24 05:45 08/25/24 14:50 Urine Color Yellow (Yellow) Urine Clarity Clear (Clear) Urine pH 5.5 (5.0-9.0) Urine Specific [place] 1.026 (1.001-1.035) Urine Protein Trace (Negative) Urine Ketones 1+ (Negative) Urine Blood Negative /uL (Negative) Urine Nitrite Negative (Negative) Urine Bilirubin Negative (Negative) Urine Urobilinogen Normal mg/dL (Negative) Urine Leukocyte Esterase Negative /uL (Negative) Urine RBC 1 /hpf (0 - 4) Urine WBC 9 /hpf (0 - 5) Urine Squamous Epithelial Cells Few /hpf (<5) Urine Bacteria None seen /hpf (None Seen) Urine Mucus Few (None Seen) Urine Glucose Normal mg/dL (Normal) Urine Opiates Screen Pos (NEGATIVE) Urine Fentanyl Screen Neg (NEGATIVE) Urine Barbiturates Screen Neg (NEGATIVE) Urine Phencyclidine Screen Neg (NEGATIVE) Urine Amphetamines Screen Neg (NEGATIVE) Urine Benzodiazepines Screen Neg (NEGATIVE) Urine Cocaine Screen Neg (NEGATIVE) Urine Cannabinoids Screen Neg (NEGATIVE) Influenza Type A Antigen Negative (Negative) Influenza Type B Antigen Negative (Negative) SARS-CoV-2 Antigen (Rapid) Negative (NEGATIVE) White Blood Count 5.7 10^3/uL (4.4-10.8) Red Blood Count 4.15 10^6/uL (4.0-5.20) Hemoglobin 12.4 g/dL (12.2-16.2) Hematocrit 36.9 % (36.0-46.0) Mean Corpuscular Volume 88.9 fL (80.0-100.0) Mean Corpuscular Hemoglobin 29.8 pg (28.0-32.0) Mean Corpuscular Hemoglobin Concent 33.6 g/dL (32.0-36.0) Red Cell Distribution Width 14.2 % (11.8-14.3) Platelet Count 384 10^3/uL (140-450) Mean Platelet Volume 9.7 fL (6.9-10.8) Neutrophils (%) (Auto) 52.7 % (37.0-80.0) Lymphocytes (%) (Auto) 32.7 % (10.0-50.0) Monocytes (%) (Auto) 12.3 % (0.0-12.0) Eosinophils (%) (Auto) 1.4 % (0.0-7.0) Basophils (%) (Auto) 0.9 % (0.0-2.0) Neutrophils # (Auto) 3.0 10 ^3/uL (1.6-8.6) Lymphocytes # (Auto) 1.9 10 ^3/uL (0.4-5.4) Monocytes # (Auto) 0.7 10 ^3/uL (0-1.3) Eosinophils # (Auto) 0.1 10 ^3/uL (0-0.8) Basophils # (Auto) 0.1 10 ^3/uL (0-0.2) Nucleated Red Blood Cells 0.1 % Lactic Acid Level 1.0 mmol/L (0.4-2.0) Creatine Kinase 43 U/L (34-145) Test 08/25/24 03:39 08/24/24 17:21 Sodium Level 139 mmol/L (136-145) Potassium Level 4.5 mmol/L (3.5-5.1) Chloride Level 108 mmol/L (98-107) Carbon Dioxide Level 23 mmol/L (20-31) Anion Gap 8 (5-15) Blood Urea Nitrogen 13 mg/dL (9-23) Creatinine 0.72 mg/dL (0.550-1.02) Glomerular Filtration Rate Calc 115 mL/min (>90) BUN/Creatinine Ratio 18.1 (10.0-20.0) Serum Glucose 89 mg/dL (74-106) Calcium Level 9.5 mg/dL (8.7-10.4) Urine WBC Clumps Present /hpf (None Seen) Other Laboratory Tests 08/26/24 05:45 08/25/24 03:39 Brief Hx & Hospital Course: Patient is a 29-year-old female with past medical history of, obstructive uropathy, renal calculi, left hydronephrosis, recurrent UTIs, dysmenorrhea, who came in due to flank pain that has been ongoing since 07/24/2024. Patient's grandmother/cooperative education director she has been experiencing flank pain, nausea, vomiting for the past 3 days. Patient is crying with a sad affect and rates her pain as 10/10. Patient had 2 ER visits for similar symptoms in the last 2 weeks and received Macrobid during the 1st visit and Bactrim during the 2nd visit, however, patient's grandmother states completion of both antibiotics was done in time without any relief. Hospital course: CT abdomen pelvis showed few nonobstructive sub 5mm right renal calculi. The largest is a stable calculus in the lower pole measuring 3 mm. 3.1 cm left ovarian cyst. Patient was started on IV Levaquin, IV NS at 150 cc/hour and IV ketorolac b.i.d. scheduled along with acetaminophen 650 mg q.6 hours as needed. Patient was also noted to have a stage III pressure ulcer on the left buttock which was present on admission, wound consult was ordered and the ulcer was addressed and treated daily. After obtaining a clean urine sample via straight catheterization, UTI and pyelonephritis was ruled out. Patient was noted to have generalized body tenderness and upper back muscle spasms likely secondary to a fall, which the patient agreed that she sustained the grandma who is also her caregiver was unaware. Patient was started on cyclobenzaprine 5 mg t.i.d. which improved her pain significantly. On the day of discharge, patient appeared well and had stable vital signs, noted significant improvement in pain and was able to ambulate without assistance. Patient was sent home with acetaminophen and cyclobenzaprine for 20 days. Her hospital course was uncomplicated. Patient was instructed to follow up with PCP. Patient was also encouraged to engage in physical activity and ambulate along with healthy diet and weight loss strategies. General Appearance: Cooperative. Well developed. Well nourished. Patient has g eneralized diffuse body aches Head Exam: Normal inspection Neck Exam: Normal inspection. Non-tender. Normal alignment Pulmonary/Respiratory: Chest non-tender. Clear bilateral breath sounds, no crackles, no wheezing. Cardiovascular/Chest: Regular rate and rhythm. No murmurs. No JVD. Peripheral Pulses: 2+ Radial (R). 2+ Radial (L). 2+ Pedal (R). 2+ Pedal (L) Abdominal Exam: Normal bowel sounds. Soft. normal abdomen, no visible veins, No hepatospenomegaly. No masses. Generalized abdominal tenderness Genitourinary: upper back spasms, improving Ankle Exam: Negative ankle edema Lower extremities: Negative lower extremity edema Neuro/Mental Status: A&O x4. Coherent. Thoughts/Psych: Normal thought pattern. Appropriate mood and affect. Good judgement and insight Skin Exam: Normal inspection. Normal color. Warm. Dry Condition at Discharge: Good Final Diagnosis/Problems List Ruled out acute pyelonephritis Questionable complicated UTI, failed outpatient therapy Nonobstructing renal calculi History of obstructive uropathy History of down syndrome Left buttock pressure ulcer stage III POA Discharge Disposition: Home Discharge Instruct/Medications Diet: Regular, Consistent carbohydrate Activity: No Restrictions, As Tolerated Follow Up/Referral: Please follow up with PCP in 1-2 weeks Medications: Continue home medications Cyclobenzaprine 5 mg 3 times a day as needed for 20 days only Discharge Statement: "Patient was advised to return to the ER or call 911 if any headaches, dizziness, shortness of breath, chest pain, abdominal pain, bleeding, fevers, or worsening of medical condition. Patient was counseled about treatment plan, medications, possible side effects, patientverbalized understanding. All questions were answered to the best of my ability. This discharge took greater then 30 minutes in planning, reviewing documentation, counseling the patient, and discussing with other team members." ASSESSMENT ASSESSMENT Assessment Date of Service: Aug 28, 2024 Billing Provider: IVTA SALAZAR MD Common Visit Codes: [id number] DISCH DAY >30min PERCY VARGAS Aug 28, 2024 06:16 VITA SALAZAR MD Aug 31, 2024 08:38
[2024-08-28] MEDS ORDERED: CYCL-837 PO (17:06)
== END 2024-08-28 17:10 | disposition home or self-care (01) | DRG 463 ==
LOC: ER 15:04 → OVERFLOW 19:13 → WEST WING 08-25 11:41
PROVIDERS: ADMIT Student in an Organized Health Care Education/Training Program; ATTEND Student in an Organized Health Care Education/Training Program
DX: N39.0 Urinary tract infection, site not specified (principal); L89.323 Pressure ulcer of left buttock, stage 3; N20.0 Calculus of kidney; E66.01 Morbid (severe) obesity due to excess calories; N83.202 Unspecified ovarian cyst, left side; Z20.822 Contact with and (suspected) exposure to COVID-19; Z87.442 Personal history of urinary calculi; Z68.41 Body mass index [BMI] 40.0-44.9, adult
CPT/HCPCS: 36415; 71045; 74176; 80048; 80307; 81001; 82550; 83605; 85025; 87081; 87086; 87426; 87804; 97162; G0378; J1885; J1956

== ENCOUNTER 2024-09-29 08:51 | Inpatient (IN) | payer MEDICAID ==
[~2024-09-29] VITALS: Ht 160 cm; Wt 100.2 kg
[~2024-09-29 08:51] MED LIST changes: -CEPH250C PO; +CYCL-837 PO; -IBU600T PO
--- NOTE | 2024-09-29 09:58 | ED.PDOC ---
General HPI Comments 29 y/o F with PMHX of kidney stones and UTI presents to the ED for CC of flank pain. Patient's grandmother states, that patient has been experiencing right and left flank pain with associated symptoms of dysuria and abdominal pain xmonths. Patient's grandmother relays, that patient is mentally delayed and has been unable to see patient's PCP due to appointment being 2 weeks out; patient currently inconsolable and convulsively crying. Patient denies fever, chills, hematuria, or frequency to urinate. No other symptoms or modifying factors at this time. Chief Complaint: Flank Pain Time Seen by MD: 09:10 Primary Care Provider: [facility] Ramirez notes: Nurses Notes, Medications, Allergies Allergies: Coded Allergies: NO KNOWN ALLERGIES (Unverified , 10/31/15) Home Meds Active Scripts Cyclobenzaprine Hcl (Cyclobenzaprine Hcl) 5 Mg Tab, 5 MG PO TIDPRN PRN for 20 Days, #60 TAB Prov:VARGASPERCY RESIDENT 08/28/24 Information Source: Patient, Relative (Grand mother) Mode of Arrival: Ambulatory Severity: Mild Timing: Months Duration: Since onset Onset: Spontaneous Symptoms: Dysuria History of: UTI, Kidney stone Location: Abdomen, (R) Flank, (L)Flank associated signs and symptoms: Nausea, Vomiting, Dysuria Past Medical History PAST MEDICAL HISTORY: Kidney Stones, UTI'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 History: No Pertinent OIL AND GAS DRAFTER History Family History Family History: Reviewed,noncontributory to illness Social History Smoker: Non-Smoker Alcohol: Denies ETOH Use Drugs: Denies Drug Use Lives In: Home Constitutional: denies: chills, diaphoresis, fatigue, fever, malaise, sweats, weakness, others EENTM: denies: blurred vision, double vision, ear bleeding, ear discharge, ear drainage, ear pain, ear ringing, eye pain, eye redness, hearing loss, mouth pain, mouth swelling, nasal discharge, nose bleeding, nose congestion, nose pain, photophobia, tearing, throat pain, throat swelling, voice changes, others Respiratory: denies: cough, hemoptysis, orthopnea, SOB at rest, shortness of breath, SOB with excertion, stridor, wheezing, others Cardiovascular: denies: chest pain, dizzy spells, diaphoresis, Dyspnea on exertion, edema, irregular heart beat, left arm pain, lightheadedness, palpitations, PND, syncope, others Gastrointestinal: reports: abdominal pain; denies: abdomen distended, blood streaked bowels, constipated, diarrhea, dysphagia, difficulty swallowing, hematemesis, melena, nausea, poor appetite, poor fluid intake, rectal bleeding, rectal pain, vomiting, others Genitourinary: reports: dysuria, flank pain; denies: abnormal vagina bleeding, burning, dyspareunia, frequency, hematuria, incontinence, pain, , vagina discharge, urgency, others Neurological: denies: dizziness, fainting, headache, left sided numbness, left sided weakness, numbness, paresthesia, pre-existing deficit, right sided numbness, right sided weakness, seizure, speech problems, tingling, tremors, weakness, others Musculoskeletal: denies: back pain, gout, joint pain, joint swelling, muscle pain, muscle stiffness, neck pain, others Integumetry: denies: bruises, change in color, change in hair/nails, dryness, laceration, lesions, lumps, rash, wounds, others Allergic/Immunocompromised: denies: Difficulty Healing, Frequent Infections, Hives, Itching, others Hematologic/Lymphatic: denies: anemia, blood clots, easy bleeding, easy bru ising, swollen glands, others Endocrine: denies: excessive hunger, excessive sweating, excessive thirst, e xcessive urination, flushing, intolerance to cold, intolerance to heat, unexplained weight gain, unexplained weight loss, others Psychiatric: denies: anxiety, bipolar disorder, depression, hopeless, panic disorder, schizophrenia, sleepless, suicidal, others All Other Systems: Reviewed and Negative Physical Exam General Appearance: Moderate Distress HEENT: Normal ENT Inspection, Pharynx Normal, TMs Normal Neck: Full Range of Motion, Non-Tender, Normal, Normal Inspection Respiratory: Chest Non-Tender, Lungs Clear, No Accessory Muscle Use, No Respiratory Distress, Normal Breath Sounds Cardiovascular: No Edema, No JVD, No Murmur, No Gallop, Normal Peripheral Pulses, Regular Rate/Rhythm Breast Exam: Deferred Gastrointestinal: No Organomegaly, Non Tender, No Pulsatile Mass, Normal Bowel Sounds, Soft Genitalia: Deferred Pelvic: Deferred Rectal: Deferred Extremities: No calf tenderness, Normal capillary refill, Normal inspection, Normal range of motion, Non-tender, No pedal edema Musculoskeletal : Apperance: Normal Neurologic: Alert, emergency worker II-XII nml as Tested, No Motor Deficits, Normal Affect, Normal Mood, No Sensory Deficits Cerebellar Function: Normal Reflexes: Normal Skin: Dry, Normal Color, Warm Peripheral Pulses: 3+ Radial (R), 3+ Radial (L) Lymphatic: No Adenopathy Was a procedure done? Was a procedure done?: No Differential Diagnosis Kidney stone (Female): Musculoskeletal pain, Urinary obstruction, Urolithiasis Urinary Problem (Female): Impaction, Pyelonephritis, Urinary retention, Urolithiasis, UTI, Vaginitis X-Ray, Labs, Meds, VS Vital Signs Date Time Temp Pulse Resp B/P (MAP) Pulse Ox O2 Delivery O2 Flow Rate FiO2 09/29/24 10:19 68 18 100 Room Air* 0 21 09/29/24 10:04 68 18 96/47 (63) 100 09/29/24 09:20 98.4 164 24 139/110 (120) 99 Lab Test 09/29/24 10:20 Range/Units White Blood Count 13.0 H 4.4-10.8 10^3/uL Red Blood Count 4.21 4.0-5.20 10^6/uL Hemoglobin 12.9 12.2-16.2 g/dL Hematocrit 39.4 36.0-46.0 % Mean Corpuscular Volume 93.7 80.0-100.0 fL Mean Corpuscular Hemoglobin 30.7 28.0-32.0 pg Mean Corpuscular Hemoglobin Concent 32.8 32.0-36.0 g/dL Red Cell Distribution Width 17.8 H 11.8-14.3 % Platelet Count 523 H 140-450 10^3/uL Mean Platelet Volume 9.3 6.9-10.8 fL Neutrophils (%) (Auto) 82.6 H 37.0-80.0 % Lymphocytes (%) (Auto) 11.1 10.0-50.0 % Monocytes (%) (Auto) 5.8 0.0-12.0 % Eosinophils (%) (Auto) 0.1 0.0-7.0 % Basophils (%) (Auto) 0.4 0.0-2.0 % Neutrophils # (Auto) 10.7 H 1.6-8.6 10 ^3/uL Lymphocytes # (Auto) 1.4 0.4-5.4 10 ^3/uL Monocytes # (Auto) 0.8 0-1.3 10 ^3/uL Eosinophils # (Auto) 0 0-0.8 10 ^3/uL Basophils # (Auto) 0 0-0.2 10 ^3/uL Nucleated Red Blood Cells 0.1 % Sodium Level 139 136-145 mmol/L Potassium Level 3.6 3.5-5.1 mmol/L Chloride Level 106 98-107 mmol/L Carbon Dioxide Level 18 L 20-31 mmol/L Anion Gap 15 5-15 Blood Urea Nitrogen 10 9-23 mg/dL Creatinine 0.86 0.550-1.02 mg/dL Glomerular Filtration Rate Calc 93 >90 mL/min BUN/Creatinine Ratio 11.6 10.0-20.0 Serum Glucose 73 L 74-106 mg/dL Calcium Level 9.9 8.7-10.4 mg/dL Current Medications Medications (Trade) Dose Ordered Sig/Martha Route Start Time Stop Time Status Last Admin Ketorolac Tromethamine (Toradol Injection) 30 mg ONCE ONCE IV 09/29/24 10:15 09/29/24 10:16 DC 09/29/24 10:18 Sodium Chloride 1,000 ml @ 1,000 mls/hr Q1H ONCE IV 09/29/24 10:30 09/29/24 11:29 DC 09/29/24 10:28 Patient alert. Anxious. History of kidney stones. Saturation pristine. Heart rate increased because of her anxiety. Establish intravenous access. Was given fluids. Reviewed her previous visit. Explained to the family. Continue cardiac monitoring. Time of 1ST Reevaluation: 09:40 Reevaluation 1ST: Unchanged Patient Education/Counseling: Diagnosis, Treatment Family Education/Counseling: Need For Follow Up Additional Information I reviewed the following notes from patient's past medical encounters: 08/24/24 DX: ACUTE PYELONEPHRITIS The following tests were ordered, and results were reviewed by me: CBC, BMP, UA Additional Information was gathered from interviewing the following independent historians: FAMILY I discussed treatment and results with medical personnel and: FAMILY Departure 1 Departure Time of Disposition: 10:23 Impression: Primary Impression: Acute abdominal pain Disposition: ADMITTED INPATIENT Admit to: Med Surg Condition: Guarded Critical Care Note Critical Care Time?: No Stability Stability form required: No Heart Score Heart Score: Heart Score Response (Comments) Value History N/A 0 EKG N/A 0 Age N/A 0 Risk Factors N/A 0 Troponin N/A 0 Total 0 I personally scribed for LOYD GARCIA MD ([email or web address]) on 09/29/24 at 09:58. Electronically submitted by Kia Santiago ([email or web address]). I personally scribed for LOYD GARCIA MD ([email or web address]) on 09/29/24 at 11:41. Electronically submitted by Kia Santiago ([email or web address]). LOYD GARCIA MD Sep 29, 2024 09:58
[2024-09-29] MEDS: KETOROLAC TROMETH 30 MG/ML 1ML VIAL IV ONE (10:18)
[2024-09-29 10:19] VITALS: PULSE 68; RESP 18; O2SAT 100
[2024-09-29] MEDS: SODIUM CHLORIDE 0.9% 1,000 ML IV ONE ×2 (10:28→12:28)
[2024-09-29 11:02] LABS: Basophils # (auto) 0 10 ^3/uL (0-0.2); Basophils % (auto) 0.4 % (0.0-2.0); Eosinophils # (auto) 0 10 ^3/uL (0-0.8); Lymphocytes # (auto) 1.4 10 ^3/uL (0.4-5.4); Neutrophils # (auto) 10.7 10 ^3/uL (1.6-8.6); Nucleated Red Blood Cells % 0.1 %
[2024-09-29 11:04] LABS: Eosinophils % (auto) 0.1 % (0.0-7.0); Hematocrit 39.4 % (36.0-46.0); Hemoglobin 12.9 g/dL (12.2-16.2); Lymphocytes % (auto) 11.1 % (10.0-50.0); Mean Corpuscular Hemoglobin 30.7 pg (28.0-32.0); Mean Corpuscular Hgb Conc. 32.8 g/dL (32.0-36.0); Mean Corpuscular Volume 93.7 fL (80.0-100.0); Monocytes # (auto) 0.8 10 ^3/uL (0-1.3); Monocytes % (auto) 5.8 % (0.0-12.0); Neutrophils % (auto) 82.6 % (37.0-80.0); Platelet Count (auto) 523 10^3/uL (140-450); Red Blood Cells 4.21 10^6/uL (4.0-5.20); Red Cell Distribution Width 17.8 % (11.8-14.3)
[2024-09-29 11:10] LABS: Chloride 106 mmol/L (98-107); Potassium 3.6 mmol/L (3.5-5.1); Sodium 139 mmol/L (136-145)
[2024-09-29 11:11] LABS: Anion Gap 15 (5-15); Calcium 9.9 mg/dL (8.7-10.4); Carbon Dioxide 18 mmol/L (20-31)
[2024-09-29 11:16] LABS: BUN/Creatinine Ratio 11.6 (10.0-20.0); Blood Urea Nitrogen 10 mg/dL (9-23)
[2024-09-29 11:20] LABS: Glucose 73 mg/dL (74-106)
[2024-09-29] MEDS: ONDANSETRON HCL 4 MG/2 ML VIAL IV ONE (11:39)
[2024-09-29] MEDS: MORPHINE SULFATE 4 MG/ML SYR/VIAL IV ONE (11:39)
--- NOTE | 2024-09-29 12:30 | DVH ---
CT ABDOMEN AND PELVIS WITHOUT CONTRAST CLINICAL HISTORY: stone TECHNIQUE: Multiple contiguous axial images of the abdomen and pelvis without intravenous contrast. The images were reformatted degenerate coronal and sagittal reconstructions. All CT scans at this medical facility are performed using dose modulation techniques as appropriate t o a performed exam including the following:Automated exposure control was utilized; adjustment of the MA and/or KV according to patient size; and use of iterative reconstruction technique. Radiation Dose Information: CT Dose: CTDI volume is 20 mGy. Dose-length product is 1069 mGy*cm Comparison: CT CT AB PEL WO CON-NO ORAL OR IV on DOS: 08/24/24, CT CT AB PEL WO CON-NO ORAL OR IV on DOS: 08/08/24 FINDINGS: Evaluation of the abdomen and pelvis is limited without intravenous contrast. There are stable few sub 5 mm nonobstructive right renal calculi. There is no evidence of left renal nephrolithiasis or hydronephrosis. There is no evidence of a ureteral calculus or hydroureter. The liver, gallbladder, pancreas, adrenal glands, and spleen appear within normal limits. There is no gross evidence of abdominal lymphadenopathy. There is no free fluid or free air. The stomach grossly appears unremarkable. The small and large bowel loops demonstrate normal caliber . There are scattered diverticula in the colon without evidence of acute diverticulitis. The abdominal aorta and IVC appear within normal limits. The bladder appears unremarkable for the degree of distention. The uterus and ovaries grossly appear within normal limits.. There is no gross evidence of a pelvic mass. There is no free fluid collectio n. Lung bases are clear. There is no acute osseous abnormality. IMPRESSION: 1. There is no acute process in the abdomen and pelvis. 2. Stable few sub 5 mm nonobstructive right renal calculi. HS:Y
[2024-09-29 12:41] LABS: Urine Bacteria FEW /hpf (None Seen); Urine Blood Negative /uL (Negative); Urine Clarity Turbid (Clear); Urine Color Yellow (Yellow); Urine Hyaline Cast FEW /lpf (0 - 2); Urine Mucus FEW (None Seen); Urine Protein, UAD 1+ (Negative); Urine Specific Gravity 1.049 (1.001-1.035); Urine Squamous Epithelial Cell MANY /hpf (<5); Urine Urobilinogen 4 mg/dL (Negative); Urine WBC 8 /HPF (0-5)
--- NOTE | 2024-09-29 22:24 | DVHHPRES ---
History of Present Illness Resident Creating Document: HERIBERTO GROVE RESDIENT History of Present Illness This is a 29-year-old female with past history of intellectual disability (mild) , recurrent UTI and renal calculi came to the hospital due to back pain. Per patient's grandmother's/caregiver the patient has left flank pain and back pain since 1 week. The patien has been suffering from the same symptoms since 2-3 months, has been admitted for these symptoms 2 times, but recently has been worsened. The patient also reports abdominal pain, and stool in the blood. Patient's grandmother/caregiver denies of any blood in the stool but the patient reports blood in stool. Patient denies fever, chills, hematuria, frequency, nausea, vomiting, cough, shortness of breath, headache or any recent sick contact. PMHx: Mild Intellectual disability, recurrent UTI, renal calculi PSHx: Ankle surgery Social history: Due to mild intellectual disability, patient's grandmother is a caregiver for the cooking and cleaning. Patient is independent in most daily activities. Denies smoking, alcohol or any other drug use. Allergic history: No known allergies Review of Systems Review of Systems General: patient denies fever, fatigue, weaknes, sweating, any recent changes in appetite and weight HEENT: No headaches, visiual changes, hearing loss, tinnitus, nasal congestion and discharge, and sore throat. Cardiovascular: Denies chest pain, palpitations, dyspnea on exertion, orthopnea, or claudication. Respiratory: No cough, and wheezing. Gastrointestinal: Reports abdominal pain and flank pain Genitourinary: No dysuria, hematuria, discharge, frequency, urgency, nocturia, incontinence, and urinary retention. Endocrine: No heat or cold intolerance, polydipsia, polyuria, and polyphagia. Neurological: No dizziness, extremity weakness and numbness, tremors, gait disturbance, seizures, and memory impairment. Psychiatric: Denies depression, anxiety,or insomnia. Musculoskeletal: Reports back pain Skin: No rashes, itching, skin lesion, changes in hair, nail, skin texture and breast. Hematologic/Lymphatic: Denies easy bruising, bleeding tendencies, or lymph node enlargement. Allergies: Coded Allergies: NO KNOWN ALLERGIES (Unverified , 10/31/15) Exam Vital Signs Vital Signs Date Time Temp Pulse Resp B/P (MAP) Pulse Ox O2 Delivery O2 Flow Rate FiO2 1/28/25 19:28 97.2 98 15 116/58 (77) 100 97.2 09/29/24 10:19 Room Air* 0 21 Exam General Appearance: Alert, Oriented X3, Cooperative, No acute distress HEENT: Atraumatic, PERRLA, EOMI, Mucous membrane moist/pink Respiratory: Clear to auscultation, Normal air movement Cardiovascular: Regular rate, Normal S1, Normal S2, No murmurs, no chest wall tenderness Abdominal: Abdominal tenderness on palpation Extremities: No clubbing, No cyanosis, No edema, Normal pulses, No tenderness/swelling Skin: No rashes, No breakdown, No significant lesion Neuro: Normal gait, Normal speech, Strength at 5/5 X4 ext, Normal tone, Sensation intact, Cranial nerves 3-12 NL, Reflexes 2+ Psych/Mental Status: Mental status NL, Mood NL Labs/Xrays Labs Test 09/29/24 10:20 09/29/24 09:07 Range/Units White Blood Count 13.0 H 4.4-10.8 10^3/uL Red Blood Count 4.21 4.0-5.20 10^6/uL Hemoglobin 12.9 12.2-16.2 g/dL Hematocrit 39.4 36.0-46.0 % Mean Corpuscular Volume 93.7 80.0-100.0 fL Mean Corpuscular Hemoglobin 30.7 28.0-32.0 pg Mean Corpuscular Hemoglobin Concent 32.8 32.0-36.0 g/dL Red Cell Distribution Width 17.8 H 11.8-14.3 % Platelet Count 523 H 140-450 10^3/uL Mean Platelet Volume 9.3 6.9-10.8 fL Neutrophils (%) (Auto) 82.6 H 37.0-80.0 % Lymphocytes (%) (Auto) 11.1 10.0-50.0 % Monocytes (%) (Auto) 5.8 0.0-12.0 % Eosinophils (%) (Auto) 0.1 0.0-7.0 % Basophils (%) (Auto) 0.4 0.0-2.0 % Neutrophils # (Auto) 10.7 H 1.6-8.6 10 ^3/uL Lymphocytes # (Auto) 1.4 0.4-5.4 10 ^3/uL Monocytes # (Auto) 0.8 0-1.3 10 ^3/uL Eosinophils # (Auto) 0 0-0.8 10 ^3/uL Basophils # (Auto) 0 0-0.2 10 ^3/uL Nucleated Red Blood Cells 0.1 % Sodium Level 139 136-145 mmol/L Potassium Level 3.6 3.5-5.1 mmol/L Chloride Level 106 98-107 mmol/L Carbon Dioxide Level 18 L 20-31 mmol/L Anion Gap 15 5-15 Blood Urea Nitrogen 10 9-23 mg/dL Creatinine 0.86 0.550-1.02 mg/dL Glomerular Filtration Rate Calc 93 >90 mL/min BUN/Creatinine Ratio 11.6 10.0-20.0 Serum Glucose 73 L 74-106 mg/dL Calcium Level 9.9 8.7-10.4 mg/dL Urine Color Yellow Yellow Urine Clarity Turbid H Clear Urine pH 6.0 5.0-9.0 Urine Specific [place] 1.049 H 1.001-1.035 Urine Protein 1+ H Negative Urine Ketones 1+ H Negative Urine Blood Negative Negative /uL Urine Nitrite Negative Negative Urine Bilirubin Negative Negative Urine Urobilinogen 4 H Negative mg/dL Urine Leukocyte Esterase Negative Negative /uL Urine RBC 22 0 - 4 /hpf Urine Microscopic WBC 8 H 0-5 /HPF Urine Squamous Epithelial Cells Many <5 /hpf Urine Bacteria Few H None Seen /hpf Urine Hyaline Casts Few 0 - 2 /lpf Urine Mucus Few None Seen Urine Glucose Normal Normal mg/dL Assessment/Plan Assessment/Plan UTI, unspecified location Renal calculi Patient has history of recurrent UTI CT scan shows, stable few sub 5 mm nonobstructive right renal calculi Urine culture Empiric antibiotic, ceftriaxone IV fluid Urology consultation Intellectual disability Possible GI bleeding Per patient, the patient has blood in stool Stool occult blood test DIET: Regular diet DISPOSITION: Med/surge Patient's status and paln discussed with the patient and the patient's grandm other/caregiver. Case discussed with Dr. Magallanes Plan discussed with: Patient, Other (RN) My Orders Orders - HERIBERTO GROVE RESDIGOMEZ Procedure Category Date Status Time Admit ADMIT 09/29/24 Verified 22:22 Stat Ekg For Chest TONY 09/29/24 Verified Pain 22:22 Notify Of Changes TONY 09/29/24 Verified From Base 22:22 Date of Service: Sep 29, 2024 Billing Provider: LAMONT POLANCO MD Common Visit Codes: [id number] INP/OBS CARE (HIGH) HERIBERTO GROVE RESDIENT Sep 29, 2024 22:23 LAMONT POLANCO MD Sep 30, 2024 23:14
[2024-09-29] MEDS ORDERED: ACETAMINOPHEN 325 MG TAB PO PRN (22:30)
[2024-09-29] MEDS: cefTRIAXone 1GM/50ML D5W 50 ML IV ONE (23:17)
[2024-09-29 23:54] LABS: Albumin 4.7 g/dL (3.2-4.8); Bilirubin, Direct 0.2 mg/dL (<0.3); Bilirubin, Total 0.7 mg/dL (0.2-1.0); Magnesium 1.8 mg/dL (1.6-2.6); Total Protein 7.6 g/dL (5.7-8.2)
[2024-09-30] MEDS: TAMSULOSIN HYDROCHLORIDE 0.4 MG CAP PO ONE (00:07)
[2024-09-30 04:42] VITALS: PULSE 76; RESP 17; O2SAT 100
[2024-09-30] MEDS: HYDROcodone-ACET 5/325MG TAB PO PRN (04:46)
[2024-09-30 06:15] LABS: Basophils # (auto) 0.1 10 ^3/uL (0-0.2); Basophils % (auto) 0.7 % (0.0-2.0); Eosinophils # (auto) 0.1 10 ^3/uL (0-0.8); Eosinophils % (auto) 0.8 % (0.0-7.0); Hematocrit 34.6 % (36.0-46.0); Hemoglobin 11.6 g/dL (12.2-16.2); Lymphocytes # (auto) 1.6 10 ^3/uL (0.4-5.4); Lymphocytes % (auto) 19.9 % (10.0-50.0); Mean Corpuscular Hemoglobin 30.7 pg (28.0-32.0); Mean Corpuscular Hgb Conc. 33.5 g/dL (32.0-36.0); Mean Corpuscular Volume 91.9 fL (80.0-100.0); Monocytes # (auto) 0.6 10 ^3/uL (0-1.3); Monocytes % (auto) 8.2 % (0.0-12.0); Neutrophils # (auto) 5.6 10 ^3/uL (1.6-8.6); Neutrophils % (auto) 70.4 % (37.0-80.0); Platelet Count (auto) 418 10^3/uL (140-450); Red Blood Cells 3.77 10^6/uL (4.0-5.20); White Blood Cell 7.9 10^3/uL (4.4-10.8)
[2024-09-30 06:34] LABS: Alanine Aminotransferase 9 U/L (7-40); Albumin 4.1 g/dL (3.2-4.8); Alkaline Phosphatase 47 U/L (46-116); Anion Gap 9 (5-15); Aspartate Aminotransferase 13 U/L (13-40); BUN/Creatinine Ratio 16.3 (10.0-20.0); Bilirubin, Total 0.7 mg/dL (0.2-1.0); Blood Urea Nitrogen 13 mg/dL (9-23); Calcium 9.5 mg/dL (8.7-10.4); Carbon Dioxide 24 mmol/L (20-31); Chloride 109 mmol/L (98-107); Glucose 98 mg/dL (74-106); Potassium 3.5 mmol/L (3.5-5.1); Sodium 142 mmol/L (136-145); Total Protein 6.9 g/dL (5.7-8.2)
[2024-09-30 08:00] VITALS: PULSE 108; RESP 12; O2SAT 99
[2024-09-30] MEDS: KETOROLAC TROMETH 30 MG/ML 1ML VIAL IV PRN (11:59)
[2024-09-30] MEDS ORDERED: ACETAMINOPHEN 325 MG TAB PO PRN ×2 (12:45)
[2024-09-30 13:34] VITALS: PULSE 106; RESP 15; O2SAT 98
[2024-09-30] MEDS: ONDANSETRON HCL 4 MG/2 ML VIAL IV PRN (15:01)
[2024-09-30] MEDS: ONDANSETRON HCL 4 MG/2 ML VIAL ONE (15:01)
--- NOTE | 2024-09-30 15:52 | DVHPNRES ---
Progress Note Date Seen: Oct 01, 2024 Resident Creating Document: CALE CONDE RESIDENT Has the PT tested + for MRSA If YES, has PT been informed?: No Medical Necessity Reason Pt with a Central, PICC or Fol: No Subjective Review of Systems This is a 29-year-old female with past history of intellectual disability (mild) , recurrent UTI and renal calculi came to the hospital due to back pain. Per patient's grandmother's/caregiver the patient has left flank pain and back pain since 1 week. The patient has been suffering from the same symptoms since 2-3 months, has been admitted for these symptoms 2 times, but recently has been worsened. The patient also reports abdominal pain, and stool in the blood. Patient's grandmother/caregiver denies of any blood in the stool but the patient reports blood in stool. Patient denies fever, chills, hematuria, frequency, nausea, vomiting, cough, shortness of breath, headache or any recent sick contact. PMHx: Mild Intellectual disability, recurrent UTI, renal calculi PSHx: Ankle surgery Social history: Due to mild intellectual disability, patient's grandmother is a caregiver for the cooking and cleaning. Patient is independent in most daily activities. Denies smoking, alcohol or any other drug use. Allergic history: No known allergies Objective vital signs Vital Sign Date Time Temp Pulse Resp B/P (MAP) Pulse Ox O2 Delivery O2 Flow Rate FiO2 09/30/24 14:00 118 17 130/84 (99) 97 09/30/24 13:34 Room Air* 0 21 09/30/24 13:00 98.1 98.1 Total Intake and Output 09/29/24 09/29/24 09/30/24 15:00 23:00 07:00 Intake Total 2000 ml 50 ml Balance 2000 ml 50 ml medications Current Medications Medications Dose Ordered Sig/Martha Route Start Time Stop Time Status Last Admin Dose Admin Ceftriaxone Sodium 50 ml @ 100 mls/hr DAILY@2100 IV 09/30/24 21:00 Tamsulosin HCl 0.4 mg QPM PO 09/30/24 18:00 Acetaminophen/ Hydrocodone Bitart 1 tab Q6HPRN PRN PO 09/30/24 03:15 09/30/24 15:01 1 TAB Ketorolac Tromethamine 30 mg Q6HPRN PRN IV 09/30/24 10:30 2/3/25 10:29 09/30/24 11:59 30 MG Acetaminophen 650 mg Q4HP PRN PO 09/30/24 12:45 Ondansetron HCl 2 mg Q6HPRN PRN IV 09/30/24 14:15 09/30/24 15:01 2 MG Examination General Appearance: Alert, Oriented X3, Cooperative, No acute distress HEENT: Atraumatic, PERRLA, EOMI, Mucous membrane moist/pink Respiratory: Clear to auscultation, Normal air movement Cardiovascular: Regular rate, Normal S1, Normal S2, No murmurs, no chest wall tenderness Abdominal: Abdominal and lumbar tenderness on palpation Extremities: No clubbing, No cyanosis, No edema, Normal pulses, No tenderness/swelling Skin: No rashes, No breakdown, No significant lesion Neuro: Normal gait, Normal speech, Strength at 5/5 X4 ext, Normal tone, Sensation intact, Cranial nerves 3-12 NL, Reflexes 2+ Psych/Mental Status: Mental status NL, Mood NL laboratory and microbiology Laboratory Tests 09/30/24 05:57 Test 09/30/24 05:57 Range/Units Serum Glucose 98 74-106 mg/dL Problem List/Assessment/Plan Problem List/Assessment/Plan UTI, unspecified location Renal calculi Patient has history of recurrent UTI CT scan shows, stable few sub 5 mm nonobstructive right renal calculi Urine culture Empiric antibiotic, ceftriaxone IV fluid Urology consultation pending Lumbar pain possible musculoskeletal Muscle relaxant PT evaluation Ketorolac Intellectual disability Possible GI bleeding Per patient, the patient has blood in stool Stool occult blood test DIET: Regular diet DISPOSITION: Med/surge Patient's status and paln discussed with the patient and the patient's grandmother/caregiver. Case discussed with Dr. Salazar Plan discussed with: Patient, Other (rn) My Orders My Orders Orders - CALE CONDE Procedure Category Date Status Time Stool Occult Blood LAB 09/30/24 Logged 09:12 Ketorolac Injection PHA 09/30/24 In Process (Toradol Injection) 10:30 Regular Diet DIET 09/30/24 Transmitted Lunch Ondansetron Hcl PHA 09/30/24 In Process (Zofran) 14:15 Date of Service: Oct 01, 2024 Billing Provider: VITA SALAZAR MD Common Visit Codes: [id number] INP/OBS CARE(HIGH) CALE CONDE RESIDENT Sep 30, 2024 15:52 VITA SALAZAR MD Oct 05, 2024 08:50
[2024-09-30] MEDS ORDERED: CYCLOBENZAPRINE HCL 10 MG TAB PO PRN (17:00)
[2024-09-30 17:28] VITALS: BP 112/78; PULSE 92; RESP 19; TEMP 98.2; O2SAT 98
--- NOTE | 2024-09-30 18:00 | DVHINCON2 ---
Date of service: Sep 30, 2024 Referring Physician hospitalist Reason for Consultation kidney stone History of Present Illness History Source: RN Notes, MD Notes, Old Records HPI 29 yo female with c/o LEFT flank pain. CT shows a 5 mm non obstructing RIGHT renal stone (reviewed images). History of kidney stones since 2020. past history of intellectual disability (mild) , recurrent UTI and renal calculi came to the hospital due to back pain. Per patient's grandmother's/caregiver the patient has left flank pain and back pain since 1 week. The patient has been suffering from the same symptoms since 2-3 months, has been admitted for these symptoms 2 times, but recently has been worsened. Patient denies fever, chills, hematuria, frequency, nausea, vomiting, cough, shortness of breath, headache or any recent sick contact. Home Meds Active Scripts Cyclobenzaprine Hcl (Cyclobenzaprine Hcl) 5 Mg Tab, 5 MG PO TIDPRN PRN for 20 Days, #60 TAB Prov:PERCY VARGAS RESIDENT 08/28/24 Past Medical History Patient Family History: Asthma G8 MOTHER Diabetes mellitus G8 MOTHER Review of Systems Genitourinary: Pain H&P Exam Vital Signs Vital Signs Date Time Temp Pulse Resp B/P (MAP) Pulse Ox O2 Delivery O2 Flow Rate FiO2 09/30/24 16:00 130 09/30/24 16:00 17 103/67 (79) 97 09/30/24 13:34 Room Air* 0 21 09/30/24 13:00 98.1 98.1 Labs/Xrays [place] [address] Ph: [phone] DIAGNOSTIC IMAGING Diagnostic Imaging Report : [id number] Signed PATIENT: SANDRA KIM BACCT: [id number] UNIT: [id number] : 1995 LOC: ER ROOM / BED: / AGE / SEX: 29 / F ADM STATUS: REG ER SERVICE 1158 ORDERING PHYSICIAN: LOYD GARCIA MD PROCEDURE(s): ABPL - CT AB PEL WO CON-NO ORAL OR IV REASON: stone ORDER NUMBER(s): [id number], ACCESSION NUMBER(s): [id number] CT ABDOMEN AND PELVIS WITHOUT CONTRAST CLINICAL HISTORY: stone TECHNIQUE: Multiple contiguous axial images of the abdomen and pelvis without intravenous contrast. The images were reformatted degenerate coronal and sagittal reconstructions. All CT scans at this medical facility are performed using dose modulation techniques as appropriate to a performed exam including the following:Automated exposure control was utilized; adjustment of the MA and/or KV according to patient size; and use of iterative reconstruction technique. Radiation Dose Information: CT Dose: CTDI volume is 20 mGy. Dose-length product is 1069 mGy*cm Comparison: CT CT AB PEL WO CON-NO ORAL OR IV on DOS: 08/24/24, CT CT AB PEL WO CON-NO ORAL OR IV on DOS: 08/08/24 FINDINGS: Evaluation of the abdomen and pelvis is limited without intravenous contrast. There are stable few sub 5 mm nonobstructive right renal calculi. There is no evidence of left renal nephrolithiasis or hydronephrosis. There is no evidence of a ureteral calculus or hydroureter. The liver, gallbladder, pancreas, adrenal glands, and spleen appear within normal limits. There is no gross evidence of abdominal lymphadenopathy. There is no free fluid or free air. The stomach grossly appears unremarkable. The small and large bowel loops demonstrate normal caliber. There are scattered diverticula in the colon without evidence of acute diverticulitis. The abdominal aorta and IVC appear within normal limits. The bladder appears unremarkable for the degree of distention. The uterus and ovaries grossly appear within normal limits.. There is no gross evidence of a pelvic mass. There is no free fluid collection. Lung bases are clear. There is no acute osseous abnormality. IMPRESSION: 1. There is no acute process in the abdomen and pelvis. 2. Stable few sub 5 mm nonobstructive right renal calculi. HS:Y ATED BY: JEFF GREGG MD DICTATED DATE/TIME: 09/29/241226 SIGNED BY: JEFF GREGG MD SIGNED DATE/TIME: 09/29/241226 CC: Labs Test 09/30/24 05:57 09/30/24 04:00 09/29/24 23:00 09/29/24 09:07 Range/Units White Blood Count 7.9 # 4.4-10.8 10^3/uL Red Blood Count 3.77 L 4.0-5.20 10^6/uL Hemoglobin 11.6 L 12.2-16.2 g/dL Hematocrit 34.6 #L 36.0-46.0 % Mean Corpuscular Volume 91.9 80.0-100.0 fL Mean Corpuscular Hemoglobin 30.7 28.0-32.0 pg Mean Corpuscular Hemoglobin Concent 33.5 32.0-36.0 g/dL Red Cell Distribution Width 18.0 H 11.8-14.3 % Platelet Count 418 140-450 10^3/uL Mean Platelet Volume 8.9 6.9-10.8 fL Neutrophils (%) (Auto) 70.4 37.0-80.0 % Lymphocytes (%) (Auto) 19.9 10.0-50.0 % Monocytes (%) (Auto) 8.2 0.0-12.0 % Eosinophils (%) (Auto) 0.8 0.0-7.0 % Basophils (%) (Auto) 0.7 0.0-2.0 % Neutrophils # (Auto) 5.6 1.6-8.6 10 ^3/uL Lymphocytes # (Auto) 1.6 0.4-5.4 10 ^3/uL Monocytes # (Auto) 0.6 0-1.3 10 ^3/uL Eosinophils # (Auto) 0.1 0-0.8 10 ^3/uL Basophils # (Auto) 0.1 0-0.2 10 ^3/uL Nucleated Red Blood Cells 0.0 % Sodium Level 142 136-145 mmol/L Potassium Level 3.5 3.5-5.1 mmol/L Chloride Level 109 H 98-107 mmol/L Carbon Dioxide Level 24 20-31 mmol/L Anion Gap 9 5-15 Blood Urea Nitrogen 13 9-23 mg/dL Creatinine 0.80 0.550-1.02 mg/dL Glomerular Filtration Rate Calc 102 >90 mL/min BUN/Creatinine Ratio 16.3 10.0-20.0 Serum Glucose 98 74-106 mg/dL Calcium Level 9.5 8.7-10.4 mg/dL Total Bilirubin 0.7 0.2-1.0 mg/dL Aspartate Amino Transferase (AST) 13 13-40 U/L Alanine Aminotransferase (ALT) 9 7-40 U/L Alkaline Phosphatase 47 46-116 U/L Total Protein 6.9 5.7-8.2 g/dL Albumin 4.1 3.2-4.8 g/dL Lactic Acid Level 1.2 0.4-2.0 mmol/L Magnesium Level 1.8 1.6-2.6 mg/dL Direct Bilirubin 0.2 <0.3 mg/dL Urine Color Yellow Yellow Urine Clarity Turbid H Clear Urine pH 6.0 5.0-9.0 Urine Specific [place] 1.049 H 1.001-1.035 Urine Protein 1+ H Negative Urine Ketones 1+ H Negative Urine Blood Negative Negative /uL Urine Nitrite Negative Negative Urine Bilirubin Negative Negative Urine Urobilinogen 4 H Negative mg/dL Urine Leukocyte Esterase Negative Negative /uL Urine RBC 22 0 - 4 /hpf Urine Microscopic WBC 8 H 0-5 /HPF Urine Squamous Epithelial Cells Many <5 /hpf Urine Bacteria Few H None Seen /hpf Urine Hyaline Casts Few 0 - 2 /lpf Urine Mucus Few None Seen Urine Glucose Normal Normal mg/dL Assessment/Plan Problem List: (1) Kidney stone (2) Left flank pain Plan no urologic intervention indicated. non obstructing right renal stone. pain meds prn fluids f/u with urology outpt Plan discussed with: OLGA Mcpherson NP Sep 30, 2024 18:00
[2024-09-30] MEDS: TAMSULOSIN HYDROCHLORIDE 0.4 MG CAP PO SCH (18:14)
[2024-09-30] MEDS: POLYETHYLENE GLYCOL 17 GM PWDR PO SCH (18:15)
[2024-09-30 20:00] VITALS: PULSE 101; RESP 20; O2SAT 97
[2024-09-30] MEDS: cefTRIAXone 1GM/50ML D5W 50 ML IV SCH (20:42)
[2024-09-30 21:00] VITALS: BP 114/74; PULSE 111; RESP 20; TEMP 97.8; O2SAT 97
[2024-10-01 01:00] VITALS: BP 108/66; PULSE 93; RESP 19; TEMP 98; O2SAT 96
[2024-10-01] MEDS ORDERED: TAMS0.4C39 PO (03:46)
[2024-10-01] MEDS ORDERED: CYCL-839 PO (03:46)
[2024-10-01] MEDS ORDERED: IBUP-1455 PO (04:10)
[2024-10-01] MEDS ORDERED: TRAM50TA2 PO (04:10)
[2024-10-01 05:00] VITALS: BP 103/51; PULSE 80; RESP 19; TEMP 98.1; O2SAT 96
[2024-10-01 07:30] VITALS: TEMP 98.9
[2024-10-01] MEDS ORDERED: POLY33505 PO (07:41)
[2024-10-01] MEDS ORDERED: DULO20CA PO (07:42)
[2024-10-01] MEDS: DULoxetine HCL 30 MG CAP PO SCH (10:22)
[2024-10-01 13:09] VITALS: BP 129/76; TEMP 36.7
[2024-10-01 13:29] VITALS: BP 108/62; PULSE 103; RESP 19; O2SAT 96
[2024-10-01] MEDS ORDERED: ACET-1882 PO (13:38)
--- NOTE | 2024-10-01 19:15 | DVHDSRES ---
Discharge Summary Date of Admission Resident Creating Document: CALE CONDE RESIDENT Sep 29, 2024 at 22:23 Date of Discharge: Oct 01, 2024 Admitting Diagnosis intractable pain Renal calculi Labs/Diagnostic Data: Laboratory Results Test 09/30/24 05:57 09/30/24 04:00 09/29/24 23:00 09/29/24 09:07 White Blood Count 7.9 10^3/uL (4.4-10.8) Red Blood Count 3.77 10^6/uL (4.0-5.20) Hemoglobin 11.6 g/dL (12.2-16.2) Hematocrit 34.6 % (36.0-46.0) Mean Corpuscular Volume 91.9 fL (80.0-100.0) Mean Corpuscular Hemoglobin 30.7 pg (28.0-32.0) Mean Corpuscular Hemoglobin Concent 33.5 g/dL (32.0-36.0) Red Cell Distribution Width 18.0 % (11.8-14.3) Platelet Count 418 10^3/uL (140-450) Mean Platelet Volume 8.9 fL (6.9-10.8) Neutrophils (%) (Auto) 70.4 % (37.0-80.0) Lymphocytes (%) (Auto) 19.9 % (10.0-50.0) Monocytes (%) (Auto) 8.2 % (0.0-12.0) Eosinophils (%) (Auto) 0.8 % (0.0-7.0) Basophils (%) (Auto) 0.7 % (0.0-2.0) Neutrophils # (Auto) 5.6 10 ^3/uL (1.6-8.6) Lymphocytes # (Auto) 1.6 10 ^3/uL (0.4-5.4) Monocytes # (Auto) 0.6 10 ^3/uL (0-1.3) Eosinophils # (Auto) 0.1 10 ^3/uL (0-0.8) Basophils # (Auto) 0.1 10 ^3/uL (0-0.2) Nucleated Red Blood Cells 0.0 % Sodium Level 142 mmol/L (136-145) Potassium Level 3.5 mmol/L (3.5-5.1) Chloride Level 109 mmol/L (98-107) Carbon Dioxide Level 24 mmol/L (20-31) Anion Gap 9 (5-15) Blood Urea Nitrogen 13 mg/dL (9-23) Creatinine 0.80 mg/dL (0.550-1.02) Glomerular Filtration Rate Calc 102 mL/min (>90) BUN/Creatinine Ratio 16.3 (10.0-20.0) Serum Glucose 98 mg/dL (74-106) Calcium Level 9.5 mg/dL (8.7-10.4) Total Bilirubin 0.7 mg/dL (0.2-1.0) Aspartate Amino Transferase (AST) 13 U/L (13-40) Alanine Aminotransferase (ALT) 9 U/L (7-40) Alkaline Phosphatase 47 U/L (46-116) Total Protein 6.9 g/dL (5.7-8.2) Albumin 4.1 g/dL (3.2-4.8) Lactic Acid Level 1.2 mmol/L (0.4-2.0) Magnesium Level 1.8 mg/dL (1.6-2.6) Direct Bilirubin 0.2 mg/dL (<0.3) Urine Color Yellow (Yellow) Urine Clarity Turbid (Clear) Urine pH 6.0 (5.0-9.0) Urine Specific [place] 1.049 (1.001-1.035) Urine Protein 1+ (Negative) Urine Ketones 1+ (Negative) Urine Blood Negative /uL (Negative) Urine Nitrite Negative (Negative) Urine Bilirubin Negative (Negative) Urine Urobilinogen 4 mg/dL (Negative) Urine Leukocyte Esterase Negative /uL (Negative) Urine RBC 22 /hpf (0 - 4) Urine Microscopic WBC 8 /HPF (0-5) Urine Squamous Epithelial Cells Many /hpf (<5) Urine Bacteria Few /hpf (None Seen) Urine Hyaline Casts Few /lpf (0 - 2) Urine Mucus Few (None Seen) Urine Glucose Normal mg/dL (Normal) Other Laboratory Tests 09/30/24 05:57 Brief Hx & Hospital Course: A 29-year-old female with a past medical history of mild intellectual disability, recurrent urinary tract infections (UTIs), and non-obstructive right renal calculi presented with flank and back pain, worsening over the past week. The patient also reported blood in her stool, though her caregiver denies observing this. Imaging revealed stable, non-obstructive renal calculi. HB is being stable and patient didn't have any episodes of GI bleeding during admission On admission, the patient was started on empiric ceftriaxone for suspected UTI, with urine culture pending. Additional management included IV fluids, ketorolac for pain. Physical therapy and urology consultations were done, urology didn't consider inpatient management. The patient was noted to have a regular diet and was medically stable. Discussions regarding her condition and care plan were held with her and her grandmother/caregiver. She denied recent symptoms such as fever, chills, or shortness of breath. A disposition plan includes outpatient follow-up for musculoskeletal pain and urology evaluation. General Appearance: Alert, Oriented X3, Cooperative, No acute distress HEENT: Atraumatic, PERRLA, EOMI, Mucous membrane moist/pink Respiratory: Clear to auscultation, Normal air movement Cardiovascular: Regular rate, Normal S1, Normal S2, No murmurs, no chest wall tenderness Abdominal: Abdominal and lumbar tenderness on palpation Extremities: No clubbing, No cyanosis, No edema, Normal pulses, No tenderness/swelling Skin: No rashes, No breakdown, No significant lesion Neuro: Normal gait, Normal speech, Strength at 5/5 X4 ext, Normal tone, Sensation intact, Cranial nerves 3-12 NL, Reflexes 2+ Psych/Mental Status: Mental status NL, Mood NL Case discussed with Dr Salazar Time spent on care 23 min Consults/Reason for consult urology due to renal stone Operations or Procedures CT ABDOMEN AND PELVIS WITHOUT CONTRAST CLINICAL HISTORY: stone TECHNIQUE: Multiple contiguous axial images of the abdomen and pelvis without intravenous contrast. The images were reformatted degenerate coronal and sagittal reconstructions. All CT scans at this medical facility are performed using dose modulation techniques as appropriate to a performed exam including the following:Automated exposure control was utilized; adjustment of the MA and/or KV according to patient size; and use of iterative reconstruction technique. Radiation Dose Information: CT Dose: CTDI volume is 20 mGy. Dose-length product is 1069 mGy*cm Comparison: CT CT AB PEL WO CON-NO ORAL OR IV on DOS: 08/24/24, CT CT AB PEL WO CON-NO ORAL OR IV on DOS: 08/08/24 FINDINGS: Evaluation of the abdomen and pelvis is limited without intravenous contrast. There are stable few sub 5 mm nonobstructive right renal calculi. There is no evidence of left renal nephrolithiasis or hydronephrosis. There is no evidence of a ureteral calculus or hydroureter. The liver, gallbladder, pancreas, adrenal glands, and spleen appear within normal limits. There is no gross evidence of abdominal lymphadenopathy. There is no free fluid or free air. The stomach grossly appears unremarkable. The small and large bowel loops demonstrate normal caliber. There are scattered diverticula in the colon without evidence of acute diverticulitis. The abdominal aorta and IVC appear within normal limits. The bladder appears unremarkable for the degree of distention. The uterus and ovaries grossly appear within normal limits.. There is no gross evidence of a pelvic mass. There is no free fluid collection. Lung bases are clear. There is no acute osseous abnormality. IMPRESSION: 1. There is no acute process in the abdomen and pelvis. 2. Stable few sub 5 mm nonobstructive right renal calculi. Condition at Discharge: Stable Final Diagnosis/Problems List intractable pain Renal calculi Patient has history of recurrent UTI Lumbar pain possible musculoskeletal Intellectual disability Possible GI bleeding Discharge Disposition: Home Discharge Instruct/Medications Diet: Consistent carbohydrate Activity: Light activity Follow Up/Referral: fu with pcp and urology as outpatient Medications: see prescription Discharge Statement: "Patient was advised to return to the ER or call 911 if any headaches, dizziness, shortness of breath, chest pain, abdominal pain, bleeding, fevers, or worsening of medical condition. Patient was counseled about treatment plan, medications, possible side effects, patientverbalized understanding. All questions were answered to the best of my ability. This discharge took greater then 30 minutes in planning, reviewing documentation, counseling the patient, and discussing with other team members." ASSESSMENT ASSESSMENT Assessment intractable pain renal calculi possible GI bleeding Date of Service: Oct 01, 2024 Billing Provider: VITA SALAZAR MD Common Visit Codes: 97667-GMJ/OBS DISCH DAY >30min CALE CONDE RESIDENT Oct 01, 2024 19:14 VITA SALAZAR MD Oct 05, 2024 08:51
== END 2024-10-01 14:00 | disposition home or self-care (01) | DRG 465 ==
LOC: ER 08:51 → TELE 22:23 → TELE-CENTR 09-30 17:30
PROVIDERS: ADMIT Student in an Organized Health Care Education/Training Program; ATTEND Student in an Organized Health Care Education/Training Program
DX: N20.0 Calculus of kidney (principal); K92.2 Gastrointestinal hemorrhage, unspecified; N39.0 Urinary tract infection, site not specified; F70 Mild intellectual disabilities; J45.909 Unspecified asthma, uncomplicated; E11.9 Type 2 diabetes mellitus without complications; M54.50 Low back pain, unspecified
CPT/HCPCS: 36415; 74176; 80048; 80053; 80076; 81001; 83605; 83735; 85025; 97163; G0378; J1885; J2405

== ENCOUNTER 2025-07-30 08:34 | Inpatient (IN) | payer MEDICAID ==
[~2025-07-30] VITALS: Ht 157.5 cm; Wt 73.8 kg
[~2025-07-30 08:34] MED LIST changes: +ACET-1882 PO; -CYCL-837 PO; +CYCL-839 PO; +DULO20CA PO; +IBUP-1455 PO; +POLY33505 PO; +TAMS0.4C39 PO; +TRAM50TA2 PO
[2025-07-30 09:09] VITALS: PULSE 94; RESP 14; O2SAT 97
--- NOTE | 2025-07-30 10:07 | ED.PDOC ---
GI ASSESSMENT HPI Comments 30-year-old female presents to the ED with a chief complaint of diffuse abdominal pain associated with nausea, vomiting, and diarrhea. Patient was brought in by grandmother who states patient is intellectually delayed. Grandmother reports that patient's symptoms are chronic, states that she took her to [facility] 1 week ago for the same complaint and was she had a CT abdominal scan done revealing constipation. Patient was then prescribed MiraLax discharged home to follow up with primary care. Patient did end up following primary care 2 days ago in which she was prescribed a bunch of medication that included sucralfate, Flagyl, and pain medication. Grandmother has been giving patient all these medications the pain persists and states the patient is now experiencing diarrhea. Patient has not got an and evaluation with a loom changer nor has gotten an EGD or colonoscopy done. Patient also reports feeling dizzy and is unable to eat as food exacerbates pain. No bloody stool, fever, chills reported. Chief Complaint: Abdominal Pain Time Seen by MD: 09:45 Primary Care Provider: [facility] Reviewed Notes: Nurses Notes, Medications, Allergies Allergies: Coded Allergies: NO KNOWN ALLERGIES (Unverified , 10/31/15) Home Meds Active Scripts Acetaminophen (Acetaminophen) 325 Mg Tab, 650 MG PO Q4HP PRN for 5 Days, #50 TAB Prov:CALE CONDE RESIDENT 10/01/24 Duloxetine Hcl (Cymbalta) 20 Mg Cap, 20 MG PO DAILY for 30 Days, #30 CAP Prov:CALE CONDE 10/01/24 Polyethylene Glycol (Miralax) 17 Gm/Scoop Pow, 17 GM PO DAILY for 10 Days, #10 POW Prov:CALE CONDE RESIDENT 10/01/24 Reported Medications Ibuprofen Micronized (Ibuprofen) 800 Mg Tab, 800 MG PO TIDP, TAB 10/01/24 Tramadol Hcl (Tramadol Hcl) 50 Mg Tab, 50 MG PO BIDPRN PRN for PAIN SCALE 1 THRU 6, MG 10/01/24 Tamsulosin Hcl (Tamsulosin Hcl) 0.4 Mg Cap, 0.4 MG PO DAILY for 30 Days, MG 10/01/24 Cyclobenzaprine Hcl (Cyclobenzaprine Hcl) 10 Mg Tab, 10 MG PO DAILYP for 30 Days, MG 10/01/24 Information Source: Patient, Relative (Grand mother) Mode of Arrival: Wheelchair Timing: Came on: Gradually Duration: Since onset Quality: Sharp Vomitus: Firm Stool: Loose Severity: Moderate Recent: None Recent Hx of: None Pain Location: Diffuse, Epigastric Modifying Factors: Nothing Associated sign and symptoms: Nausea, Vomiting, Diarrhea, Abdominal Pain Past Medical History PAST MEDICAL HISTORY: Kidney Stones, UTI'S [employer] History: No Pertinent [employer] History Family History Family History: Reviewed,noncontributory to illness Social History Smoker: Non-Smoker Alcohol: Denies ETOH Use Drugs: Denies Drug Use Lives In: Home Constitutional: denies: chills, diaphoresis, fatigue, fever, malaise, sweats, weakness, others EENTM: denies: blurred vision, double vision, ear bleeding, ear discharge, ear drainage, ear pain, ear ringing, eye pain, eye redness, hearing loss, mouth pain, mouth swelling, nasal discharge, nose bleeding, nose congestion, nose pain, photophobia, tearing, throat pain, throat swelling, voice changes, others Respiratory: denies: cough, hemoptysis, orthopnea, SOB at rest, shortness of breath, SOB with excertion, stridor, wheezing, others Cardiovascular: denies: chest pain, dizzy spells, diaphoresis, Dyspnea on exertion, edema, irregular heart beat, left arm pain, lightheadedness, palpitations, PND, syncope, others Gastrointestinal: reports: abdominal pain, diarrhea, nausea, vomiting; denies: abdomen distended, blood streaked bowels, constipated, dysphagia, difficulty swallowing, hematemesis, melena, poor appetite, poor fluid intake, rectal bleeding, rectal pain, others Genitourinary: denies: abnormal vagina bleeding, burning, dyspareunia, dysuria, flank pain, frequency, hematuria, incontinence, pain, , vagina d ischarge, urgency, others Neurological: denies: dizziness, fainting, headache, left sided numbness, left sided weakness, numbness, paresthesia, pre-existing deficit, right sided numbness, right sided weakness, seizure, speech problems, tingling, tremors, weakness, others Musculoskeletal: denies: back pain, gout, joint pain, joint swelling, muscle pain, muscle stiffness, neck pain, others Integumetry: denies: bruises, change in color, change in hair/nails, dryness, laceration, lesions, lumps, rash, wounds, others Allergic/Immunocompromised: denies: Difficulty Healing, Frequent Infections, Hives, Itching, others Hematologic/Lymphatic: denies: anemia, blood clots, easy bleeding, easy bruising, swollen glands, others Endocrine: denies: excessive hunger, excessive sweating, excessive thirst, excessive urination, flushing, intolerance to cold, intolerance to heat, unexplained weight gain, unexplained weight loss, others Psychiatric: denies: anxiety, bipolar disorder, depression, hopeless, panic disorder, schizophrenia, sleepless, suicidal, others All Other Systems: Reviewed and Negative Physical Exam General Appearance: Moderate Distress HEENT: Normal ENT Inspection, Pharynx Normal, TMs Normal Neck: Full Range of Motion, Non-Tender, Normal, Normal Inspection Respiratory: Chest Non-Tender, Lungs Clear, No Accessory Muscle Use, No Respiratory Distress, Normal Breath Sounds Cardiovascular: No Edema, No JVD, No Murmur, No Gallop, Normal Peripheral Pulses, Regular Rate/Rhythm Breast Exam: Deferred Gastrointestinal: No Organomegaly, Non Tender, No Pulsatile Mass, Normal Bowel Sounds, Soft Genitalia: Deferred Pelvic: Deferred Rectal: Deferred Extremities: No calf tenderness, Normal capillary refill, Normal inspection, Normal range of motion, Non-tender, No pedal edema Musculoskeletal : Apperance: Normal Neurologic: Alert, jet wiper II-XII nml as Tested, No Motor Deficits, Normal Affect, Normal Mood, No Sensory Deficits Cerebellar Function: Normal Reflexes: Normal Skin: Dry, Normal Color, Warm Peripheral Pulses: 3+ Radial (R), 3+ Radial (L) Lymphatic: No Adenopathy Was a procedure done? Was a procedure done?: No GI differential Dx Differential Diagnosis: Constipation, Diverticular disease, Esophagitis, Gastritis/PUD, Gastroenteritis, Dehydration, Electrolyte Imbalance, Esophageal Varicies, Stress Ulcer X-Ray, Labs, Meds, VS Vital Signs Date Time Temp Pulse Resp B/P (MAP) Pulse Ox O2 Delivery O2 Flow Rate FiO2 07/30/25 11:45 97.5 83 16 105/63 (77) 99 97.5 07/30/25 09:09 94 14 97 Room Air* 0 21 07/30/25 09:09 97.8 94 14 112/67 (82) 97 97.8 07/30/25 08:37 97.5 124 20 147/82 96 97.5 Lab Test 07/30/25 10:30 Range/Units White Blood Count 5.7 4.4-10.8 10^3/uL Red Blood Count 4.02 4.0-5.20 10^6/uL Hemoglobin 13.2 12.2-16.2 g/dL Hematocrit 38.3 36.0-46.0 % Mean Corpuscular Volume 95.3 80.0-100.0 fL Mean Corpuscular Hemoglobin 32.8 H 28.0-32.0 pg Mean Corpuscular Hemoglobin Concent 34.5 32.0-36.0 g/dL Red Cell Distribution Width 13.8 11.8-14.3 % Platelet Count 475 H 140-450 10^3/uL Mean Platelet Volume 8.3 6.9-10.8 fL Neutrophils (%) (Auto) 70.7 37.0-80.0 % Lymphocytes (%) (Auto) 17.8 10.0-50.0 % Monocytes (%) (Auto) 9.8 0.0-12.0 % Eosinophils (%) (Auto) 0.6 0.0-7.0 % Basophils (%) (Auto) 1.1 0.0-2.0 % Neutrophils # (Auto) 4.0 1.6-8.6 10 ^3/uL Lymphocytes # (Auto) 1.0 0.4-5.4 10 ^3/uL Monocytes # (Auto) 0.6 0-1.3 10 ^3/uL Eosinophils # (Auto) 0 0-0.8 10 ^3/uL Basophils # (Auto) 0.1 0-0.2 10 ^3/uL Nucleated Red Blood Cells 0.0 % Sodium Level 142 136-145 mmol/L Potassium Level 4.1 3.5-5.1 mmol/L Chloride Level 106 98-107 mmol/L Carbon Dioxide Level 25 20-31 mmol/L Anion Gap 11 5-15 Blood Urea Nitrogen 19 9-23 mg/dL Creatinine 1.02 0.550-1.02 mg/dL Glomerular Filtration Rate Calc 75 >90 mL/min BUN/Creatinine Ratio 18.6 10.0-20.0 Serum Glucose 94 74-106 mg/dL Calcium Level 9.5 8.7-10.4 mg/dL Patient alert. Came in because of diarrhea for many weeks. Vitals stable. Answering all questions. WBC within normal limits. Hemoglobin within normal limits. Reviewed her previous visit at [facility]. CT scan at that time was normal. CT scan done here is within normal limits. She will need colonoscopy. Explained to the family. Continue monitoring. Time of 1ST Reevaluation: 10:07 Reevaluation 1ST: Unchanged Patient Education/Counseling: Other Family Education/Counseling: Diagnosis, Treatment, Prognosis SEPSIS Sepsis Screen Date sepsis recognized/suspect: Jul 30, 2025 Time Sepsis recognized/suspect: 0850 Recent Procedure: No On Antibiotic Therapy: No Respiratory Rate >20: No Heart Rate >90: Yes Temp<36 C (96.8 F) or >38.3 C: No SBP <90 or MAP <65 mmHG: No New Acute Mental Status Change: No Is the patient on CPAP, BIPAP,: No Physician Orders Urinalysis (07/30/25 10:10) Ct Ab Pel Wo Con-No Oral Or Iv (07/30/25 10:10) Vital Signs Date Time Temp Pulse Resp B/P (MAP) Pulse Ox O2 Delivery O2 Flow Rate FiO2 07/30/25 11:45 97.5 83 16 105/63 (77) 99 97.5 07/30/25 09:09 94 14 97 Room Air* 0 21 07/30/25 09:09 97.8 94 14 112/67 (82) 97 97.8 07/30/25 08:37 97.5 124 20 147/82 96 97.5 Laboratory Tests Test 07/30/25 10:30 White Blood Count 5.7 10^3/uL (4.4-10.8) Departure 1 Departure Time of Disposition: 13:17 Impression: Primary Impression: Non-specific colitis Additional Impressions: Acute abdominal pain Kidney stone Disposition: ADMITTED INPATIENT Admit to: Med Surg Condition: Guarded Critical Care Note Critical Care Time?: No Stability Stability form required: No I personally scribed for LOYD GARCIA MD ([email or web address]) on 07/30/25 at 10:07. Electronically submitted by Modesta Yanez ([facility]). LOYD AGRCIA MD Jul 30, 2025 10:07
[2025-07-30 10:50] LABS: Hematocrit 38.3 % (36.0-46.0); Hemoglobin 13.2 g/dL (12.2-16.2); Mean Corpuscular Hemoglobin 32.8 pg (28.0-32.0); Mean Corpuscular Volume 95.3 fL (80.0-100.0); Nucleated Red Blood Cells % 0.0 %
--- NOTE | 2025-07-30 11:01 | DVH ---
Exam: CT CT AB PEL WO CON-NO ORAL OR IV History: colitis Comparison Study: CT CT AB PEL WO CON-NO ORAL OR IV on DOS: 09/29/24, CT CT AB PEL WO CON-NO ORAL OR IV on DOS: 08/24/24, CT CT AB PEL WO CON-NO ORAL OR IV on DOS: 08/08/24, CT ABD PELVIS WO CONTRAST on DOS: 12/26/20, CT ABD PELVIS WO CONTRAST on DOS: 12/21/20 Technique: Multidetector spiral CT of the abdomen was performed from lung bases to pubic symphysis. Imaging was performed without IV contrast. Axial, coronal and sagittal multiplanar reformats were obtained from the axial data set by the technologist. Radiation Dose : 1. Abdomen/Pelvis: CTDIvol 11.87 mGy, DLP 609.16 mGy*cm. Findings: Evaluation of solid organs is limited due to lack of intravenous contrast use. Lung Bases: No acute or significant lung base finding. Normal heart size. No pleural or pericardial effusion. Liver: The liver is normal in size. No focal lesions. Gallbladder and Biliary Tree: Unremarkable Spleen: Unremarkable Pancreas: Unremarkable Adrenal Glands: Unremarkable Kidneys: Punctate nonobstructing bilateral nephrolithiasis measuring 1-2 mm. No hydronephrosis or ureteral stones. Bladder: Unremarkable. Bowel: The stomach is grossly normal in appearance. Small bowel and colon are normal in caliber and distribution. The appendix is normal. Ascites: Absent Lymphadenopathy: No mesenteric, retroperitoneal or periportal lymphadenopathy. Abdominal Wall and Mesentery: Unremarkable. Vasculature: Abdominal aortic dimensions are normal. Pelvic Organs: Unremarkable Musculoskeletal: No aggressive focal bony lesions, acute fractures or dislocation. IMPRESSION: No acute abdominal or pelvic findings. Punctate nonobstructing bilateral nephrolithiasis. Radiation optimization: All CT scans at this facility use at least one of these dose optimization techniques: automated exposure control mA and/or kV adjustment per patient size (includes targeted exams where dose is matched to clinical indication) or iterative reconstruction.
[2025-07-30 11:02] LABS: Anion Gap 11 (5-15); Carbon Dioxide 25 mmol/L (20-31); Chloride 106 mmol/L (98-107); Potassium 4.1 mmol/L (3.5-5.1); Sodium 142 mmol/L (136-145)
[2025-07-30 11:03] LABS: Calcium 9.5 mg/dL (8.7-10.4)
[2025-07-30 11:07] LABS: Glucose 94 mg/dL (74-106)
[2025-07-30 11:08] LABS: BUN/Creatinine Ratio 18.6 (10.0-20.0); Blood Urea Nitrogen 19 mg/dL (9-23)
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
[2025-07-30 14:15] LABS: Alanine Aminotransferase 16.0 U/L (7-40); Albumin 4.4 g/dL (3.2-4.8); Alkaline Phosphatase 50.0 U/L (46-116); Bilirubin, Total 0.7 mg/dL (0.2-1.0); Magnesium 2.0 mg/dL (1.6-2.6); Total Protein 7.6 g/dL (5.7-8.2); Triglycerides 72.0 mg/dL (< 150)
[2025-07-30 14:16] LABS: Bilirubin, Direct 0.2 mg/dL (<0.3)
[2025-07-30 14:17] LABS: HDL Cholesterol 55.0 mg/dL (40-59)
[2025-07-30 14:19] LABS: Cholesterol 228.0 mg/dL (< 200); INR 1.09 (0.9-1.15); Partial Thromboplastin Time 29.7 SEC (24.5-34.5); Prothrombin Time 11.5 sec (9.3-11.8)
[2025-07-30 14:30] LABS: Lipase 25.0 U/L (12-53)
[2025-07-30] MEDS: METOCLOPRAMIDE HCL 5MG/ml INJ 2ml VIAL IV ONE (14:57)
[2025-07-30] MEDS: TAMSULOSIN HYDROCHLORIDE 0.4 MG CAP PO SCH (14:58)
[2025-07-30] MEDS: MORPHINE SULFATE 4 MG/ML SYR/VIAL IV PRN (14:59)
[2025-07-30] MEDS: SODIUM CHLORIDE 0.9% 1,000 ML IV ONE (15:06)
[2025-07-30 15:09] VITALS: BP 116/74; PULSE 84; RESP 18; TEMP 97.4; O2SAT 98
[2025-07-30] MEDS ORDERED: SUCR1SUS25 PO (15:31)
[2025-07-30] MEDS ORDERED: OMEP20TA PO (15:31)
[2025-07-30] MEDS ORDERED: LIDO2SOL26 MT (15:31)
--- NOTE | 2025-07-30 15:40 | DVH ---
CHEST RADIOGRAPH Indication: Rule out aspiration PNA Technique: XY CHEST XRAY 1 VIEW Comparison: None FINDINGS: The cardiac silhouette is unremarkable. The lungs demonstrate no pulmonary airspace consolidation. The pulmonary vasculature is unremarkable. There is no pleural effusion. There is no pneumothorax. IMPRESSION: No pulmonary airspace consolidation.
[2025-07-30] MEDS: SODIUM CHLORIDE 0.9% 1,000 ML IV SCH (15:43)
[2025-07-30 17:00] VITALS: BP 98/61; PULSE 61; RESP 17; TEMP 98.7; O2SAT 99
[2025-07-30] MEDS: SUCRALFATE 1 GM/10 ML ORAL SUSP PO SCH (17:00)
[2025-07-30] MEDS: PANTOPRAZOLE 40 MG/10 ML VIAL INJ IV ONE (17:00)
[2025-07-30] MEDS ORDERED: LIDOCAINE VISCOUS 2% 15ML UD MT PRN (17:00)
[2025-07-30 20:00] VITALS: PULSE 82; RESP 18; O2SAT 99
[2025-07-30 21:00] VITALS: BP 106/63; PULSE 83; RESP 17; TEMP 98; O2SAT 98
[2025-07-30] MEDS: METOCLOPRAMIDE HCL 5MG/ml INJ 2ml VIAL IV SCH (21:31)
[2025-07-31] VITALS (8 sets, daily range): BP systolic 103–112; BP diastolic 66–75; PULSE 61–98; RESP 14–18; TEMP 97.3–98.5; O2SAT 97–100
[2025-07-31] MEDS: PANTOPRAZOLE 40 MG/10 ML VIAL INJ IV SCH (05:49)
[2025-07-31 06:25] LABS: Hematocrit 39.3 % (36.0-46.0); Hemoglobin 13.2 g/dL (12.2-16.2); Mean Corpuscular Hemoglobin 32.6 pg (28.0-32.0); Mean Corpuscular Volume 96.8 fL (80.0-100.0); Nucleated Red Blood Cells % 0.1 %
[2025-07-31 06:40] LABS: Alanine Aminotransferase 13 U/L (7-40); Alkaline Phosphatase 49 U/L (46-116); Anion Gap 13 (5-15); BUN/Creatinine Ratio 13.8 (10.0-20.0); Blood Urea Nitrogen 11 mg/dL (9-23); Calcium 9.0 mg/dL (8.7-10.4); Carbon Dioxide 21 mmol/L (20-31); Glucose 80 mg/dL (74-106); Potassium 4.5 mmol/L (3.5-5.1); Sodium 142 mmol/L (136-145); Total Protein 7.3 g/dL (5.7-8.2)
[2025-07-31 06:41] LABS: Albumin 4.3 g/dL (3.2-4.8); Bilirubin, Total 1.1 mg/dL (0.2-1.0)
[2025-07-31 06:45] LABS: Chloride 108 mmol/L (98-107)
[2025-07-31] MEDS ORDERED: ENOXAPARIN SOD 40 MG/0.4 ML SYRINGE SC SCH (10:00)
[2025-07-31] MEDS ORDERED: PATIENTS OWN MEDICATION (Omeprazole (Gnp Omeprazole) 40 MG) PO SCH (10:00)
[2025-07-31] MEDS: ACETAMINOPHEN 325 MG TAB PO PRN (11:03)
[2025-07-31 14:38] LABS: Urine Protein, UAD Negative (Negative)
--- NOTE | 2025-07-31 14:41 | DVHPN2 ---
Subjective Patient is complaining of abdominal pain in the epigastric region, patient does have developmental delay. There is no family member at bedside. 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 Medications Current Medications Medications Dose Ordered Sig/Martha Route Start Time Stop Time Status Last Admin Dose Admin Acetaminophen 325 mg Q4HP PRN PO 07/30/25 13:30 07/31/25 11:03 325 MG Ondansetron HCl 4 mg Q4HP PRN IV 07/30/25 13:30 Morphine Sulfate 2 mg Q4HPRN PRN IV 07/30/25 14:30 07/31/25 04:37 2 MG Metoclopramide HCl 5 mg Q8HR IV 07/30/25 22:00 07/31/25 05:49 5 MG Sodium Chloride 1,000 ml @ 75 mls/hr [id number] IV 07/30/25 13:45 07/30/25 15:43 75 MLS/HR Tamsulosin HCl 0.4 mg QPM PO 07/30/25 18:00 07/30/25 14:58 0.4 MG Lidocaine HCl 5 ml Q3HPRN PRN MT 07/30/25 17:00 Sucralfate 1 gm ACHS PO 07/30/25 17:00 07/31/25 11:03 1 GM Pantoprazole Sodium 40 mg BID@0600,1800 IV 07/31/25 06:00 07/31/25 05:49 40 MG Al Hydrox/Mg Hydrox/Simethicone 15 ml Q8HP PRN PO 07/30/25 17:15 Docusate Sodium 100 mg BID PO 07/31/25 22:00 Sennosides 17.2 mg HS PO 07/31/25 22:00 Laboratory Results Laboratory Tests 07/31/25 06:06 Chemistry Test 07/31/25 06:06 Albumin 4.3 g/dL (3.2-4.8) Calcium Level 9.0 mg/dL (8.7-10.4) Total Protein 7.3 g/dL (5.7-8.2) LFT Test 07/31/25 06:06 Alanine Aminotransferase (ALT) 13 U/L (7-40) Alkaline Phosphatase 49 U/L (46-116) Aspartate Amino Transferase (AST) 16 U/L (13-40) Total Bilirubin 1.1 mg/dL (0.2-1.0) H Urinalysis Test 07/31/25 14:00 Urine Color Pending Urine Clarity Pending Urine pH Pending Urine Specific [place] Pending Urine Protein Pending Urine Ketones Pending Urine Blood Pending Urine Nitrite Pending Urine Bilirubin Pending Urine Urobilinogen Pending Urine Leukocyte Esterase Pending Urine RBC Pending Urine Microscopic WBC Pending Urine Squamous Epithelial Cells Pending Urine Bacteria Pending Urine Glucose Pending Microbiology Microbiology Date/Time Source Procedure Growth Status 07/30/25 21:10 Nose MRSA Screen - Final Complete Assessment/Plan Assessment/Plan 30-year-old female with a known history of developmental delay who initially presented to the hospital with a abdominal pain nausea found to have 1. Intractable abdominal pain with the nausea 2. Gastritis rule out upper GI bleed 3. Developmental delay 4. Bilateral nephrolithiasis nonobstructing -continue Protonix and Carafate follow up GI recommendations Plan discussed with: Patient My Orders Orders - ALICIA RIVAS MD Procedure Category Date Status Time Docusate Sodium PHA 07/31/25 In Process Capsule (Colace 22:00 Senna Pod Tablet PHA 07/31/25 In Process (Senokot Tablet) 22:00 Date of Service: Jul 31, 2025 Billing Provider: ALICIA RIVAS MD Common Visit Codes: [id number] INP/OBS CARE(HIGH) ALICIA RIVAS MD Jul 31, 2025 14:41
[2025-07-31 14:57] LABS: Opiate Scree,Urine Pos (NEGATIVE)
[2025-07-31] MEDS: DOCUSATE SOD 100 MG CAP PO ONE ×2 (14:57→15:02)
[2025-07-31 14:58] LABS: Barbiturate Scree,Urine Neg (NEGATIVE); Phencyclidine Screen, Urine Neg (NEGATIVE)
[2025-07-31 14:59] LABS: Amphetamine Screen, Urine Neg (NEGATIVE); Benzodiazephine Screen, Urine Neg (NEGATIVE); Cannabinoid Screen, Urine Neg (NEGATIVE); Cocaine Screen, Urine Neg (NEGATIVE)
--- NOTE | 2025-07-31 18:41 | DVHINCON2 ---
Date of service: Jul 31, 2025 Referring Physician Ismael Reason for Consultation Unintentional weight loss Constipation Questionable hematemesis History of Present Illness The patient is a 30-year-old female with a history of developmental delay, admitted with abdominal pain nausea and vomiting in a question of hematemesis. The patient complains of constipation. She is not the best historian and the patient's grandmother who she lives with hernext of kin is not with her. Per the nursing staff patient has not had any episodes of nausea vomiting or emesis. Hemoglobin is 13. Per the chart patient has a history of outside hospital admission diagnosed with gastritis and was started empirically on PPI and Carafate and lidocaine which was not improved her symptoms. No known history of EGD. GI consultation was obtained for evaluation given the patient's symptoms Past Medical History As above History of kidney stones Past Surgical History History of kidney stones Ankle repair Family History: Asthma G8 MOTHER Diabetes mellitus G8 MOTHER Social History No tobacco alcohol or recreational drug use Allergies: Coded Allergies: NO KNOWN ALLERGIES (Unverified , 10/31/15) Home Meds Active Scripts Acetaminophen (Acetaminophen) 325 Mg Tab, 650 MG PO Q4HP PRN for 5 Days, #50 TAB Prov:CALE CONDE RESIDENT 10/01/24 Duloxetine Hcl (Cymbalta) 20 Mg Cap, 20 MG PO DAILY for 30 Days, #30 CAP Prov:CALE CONDE [facility] 10/01/24 Polyethylene Glycol (Miralax) 17 Gm/Scoop Pow, 17 GM PO DAILY for 10 Days, #10 POW Prov:CALE CONDE [facility] 10/01/24 Reported Medications Lidocaine HCl (Mouth-Throat) (Lidocaine HCl Viscous) 2 % Jaye, 2 % MT Q3HPRN PRN for PAIN SCALE 1 THRU 6, ML 07/30/25 Sucralfate (Sucralfate) 1 Gm/10 Ml Jacqueline, 1 GM PO ACHS, GM 07/30/25 Omeprazole (Gnp Omeprazole) 20 Mg Tab, 40 MG PO DAILY, TAB 07/30/25 Ibuprofen Micronized (Ibuprofen) 800 Mg Tab, 800 MG PO TIDP, TAB 10/01/24 Tramadol Hcl (Tramadol Hcl) 50 Mg Tab, 50 MG PO BIDPRN PRN for PAIN SCALE 1 THRU 6, MG 10/01/24 Tamsulosin Hcl (Tamsulosin Hcl) 0.4 Mg Cap, 0.4 MG PO DAILY for 30 Days, MG 10/01/24 Cyclobenzaprine Hcl (Cyclobenzaprine Hcl) 10 Mg Tab, 10 MG PO DAILYP for 30 Days, MG 10/01/24 Current Medications Current Medications Medications (Trade) Dose Ordered Sig/Martha Route PRN Reason Start Time Stop Time Status Last Admin Enoxaparin Sodium (Lovenox) 40 mg DAILY SC 07/31/25 10:00 07/30/25 14:59 DC Metoclopramide HCl (Reglan Injection) 5 mg Q8HR IV 07/30/25 22:00 07/31/25 14:58 Patient Own Medication 40 mg DAILY PO 07/31/25 10:00 07/30/25 17:08 DC Pantoprazole Sodium (Protonix) 40 mg BID@0600,1800 IV 07/31/25 06:00 07/31/25 17:51 Docusate Sodium (Colace Capsule) 100 mg BID PO 07/31/25 22:00 Sennosides (Senokot Tablet) 17.2 mg HS PO 07/31/25 22:00 Review of Systems Review of systems unobtainable other than HPI Vital Signs Vital Signs Date Time Temp Pulse Resp B/P (MAP) Pulse Ox O2 Delivery O2 Flow Rate FiO2 07/31/25 16:43 98.4 70 16 111/75 (87) 98 98.4 07/31/25 08:00 Room Air* 0 21 Physical Exam General: Alert and oriented mild distress HEENT: NC/AT EOMI PERRLA SOB clear Heart: Regular rate and rhythm Abdomen: Soft nondistended, mild tenderness to palpation Extremity: No clubbing cyanosis or edema Labs/Diagnostic Data Labs Test 07/31/25 14:00 07/31/25 06:06 07/30/25 15:11 07/30/25 10:30 Range/Units Urine Color Light-yellow Yellow Urine Clarity Clear Clear Urine pH 6.0 5.0-9.0 Urine Specific [place] 1.016 1.001-1.035 Urine Protein Negative Negative Urine Ketones 2+ H Negative Urine Blood Negative Negative /uL Urine Nitrite Negative Negative Urine Bilirubin Negative Negative Urine Urobilinogen Normal Negative mg/dL Urine Leukocyte Esterase Negative Negative /uL Urine RBC 1 0 - 4 /hpf Urine Microscopic WBC 1 0-5 /HPF Urine Squamous Epithelial Cells Few <5 /hpf Urine Bacteria None seen None Seen /hpf Urine Mucus Few None Seen Urine Glucose Normal Normal mg/dL Urine Opiates Screen Pos NEGATIVE Urine Fentanyl Screen Neg NEGATIVE Urine Barbiturates Screen Neg NEGATIVE Urine Phencyclidine Screen Neg NEGATIVE Urine Amphetamines Screen Neg NEGATIVE Urine Benzodiazepines Screen Neg NEGATIVE Urine Cocaine Screen Neg NEGATIVE Urine Cannabinoids Screen Neg NEGATIVE White Blood Count 6.6 4.4-10.8 10^3/uL Red Blood Count 4.06 4.0-5.20 10^6/uL Hemoglobin 13.2 12.2-16.2 g/dL Hematocrit 39.3 36.0-46.0 % Mean Corpuscular Volume 96.8 80.0-100.0 fL Mean Corpuscular Hemoglobin 32.6 H 28.0-32.0 pg Mean Corpuscular Hemoglobin Concent 33.7 32.0-36.0 g/dL Red Cell Distribution Width 13.8 11.8-14.3 % Platelet Count 401 140-450 10^3/uL Mean Platelet Volume 8.5 6.9-10.8 fL Neutrophils (%) (Auto) 62.9 37.0-80.0 % Lymphocytes (%) (Auto) 26.4 10.0-50.0 % Monocytes (%) (Auto) 8.3 0.0-12.0 % Eosinophils (%) (Auto) 1.4 0.0-7.0 % Basophils (%) (Auto) 1.0 0.0-2.0 % Neutrophils # (Auto) 4.2 1.6-8.6 10 ^3/uL Lymphocytes # (Auto) 1.7 0.4-5.4 10 ^3/uL Monocytes # (Auto) 0.5 0-1.3 10 ^3/uL Eosinophils # (Auto) 0.1 0-0.8 10 ^3/uL Basophils # (Auto) 0.1 0-0.2 10 ^3/uL Nucleated Red Blood Cells 0.1 % Sodium Level 142 136-145 mmol/L Potassium Level 4.5 3.5-5.1 mmol/L Chloride Level 108 H 98-107 mmol/L Carbon Dioxide Level 21 20-31 mmol/L Anion Gap 13 5-15 Blood Urea Nitrogen 11 9-23 mg/dL Creatinine 0.80 0.550-1.02 mg/dL Glomerular Filtration Rate Calc 101 >90 mL/min BUN/Creatinine Ratio 13.8 10.0-20.0 Serum Glucose 80 74-106 mg/dL Calcium Level 9.0 8.7-10.4 mg/dL Total Bilirubin 1.1 H 0.2-1.0 mg/dL Aspartate Amino Transferase (AST) 16 13-40 U/L Alanine Aminotransferase (ALT) 13 7-40 U/L Alkaline Phosphatase 49 46-116 U/L Total Protein 7.3 5.7-8.2 g/dL Albumin 4.3 3.2-4.8 g/dL Lactic Acid Level 1.1 0.4-2.0 mmol/L Ammonia < 10 L 11-32 umol/L Prothrombin Time 11.5 9.3-11.8 sec Prothrombin Time INR 1.09 0.9-1.15 Activated Partial Thromboplast Time 29.7 24.5-34.5 SEC Hemoglobin A1c 4.7 <5.7 % A1C Phosphorus Level 2.6 2.4-5.1 mg/dL Magnesium Level 2.0 1.6-2.6 mg/dL Direct Bilirubin 0.2 <0.3 mg/dL Triglycerides Level 72 < 150 mg/dL Cholesterol Level 228 H < 200 mg/dL LDL Cholesterol 145 H < 100 mg/dL HDL Cholesterol 55 40-59 mg/dL Lipase 25 12-53 U/L Vitamin B12 Level 936 H 211-911 pg/mL Vitamin D 25-Hydroxy 27.9 L 30.0-100 ng/mL Thyroid Stimulating Hormone (TSH) 1.87 0.55-4.78 uIU/mL Beta HCG, Quantitative 0.6 L 1.5-4.2 mIU/mL Microbiology Date/Time Source Procedure Growth Status 07/30/25 21:10 Nose MRSA Screen - Final Complete Assessment 1. Abdominal pain 2. Nausea and vomiting 3. Constipation 4. Question GI bleed 5. Developmental delay 6. Kidney stones bilaterally nonobstructing Problems(with codes): (1) Acute abdominal pain Plan/Recommendation 1. Continue with stool softeners and laxatives 2. Clear liquid diet 3. We will be signing off tomorrow question if the patient needs endoscopy and/or colonoscopy 4. Follow labs 5. Antiemetics as needed 6. Continue current medications ppi and Carafate Plan discussed with: ROBYN De Leon MD Jul 31, 2025 18:41
[2025-07-31] MEDS: DOCUSATE SOD 100 MG CAP PO SCH (21:13)
[2025-07-31] MEDS: SENNA 8.6 MG TAB PO SCH (21:14)
[2025-07-31] MEDS: ONDANSETRON HCL 4 MG/2 ML VIAL IV PRN (23:44)
[2025-08-01] VITALS (7 sets, daily range): BP systolic 96–125; BP diastolic 54–78; PULSE 65–94; RESP 16–17; TEMP 97.1–98.4; O2SAT 98–100
--- NOTE | 2025-08-01 15:41 | DVHPN2 ---
Subjective Patient is complaining of abdominal pain in the epigastric region, patient does have developmental delay. There is no family member at bedside. Changes from previous H/P or p: No Changes Objective Vitals Vital Signs Date Time Temp Pulse Resp B/P (MAP) Pulse Ox O2 Delivery O2 Flow Rate FiO2 08/01/25 13:00 98.0 65 16 96/57 (70) 99 98.0 08/01/25 08:00 Room Air* 0 21 Intake/Output Intake and Output 08/01/25 07:00 Intake Total 0 ml Output Total 0 ml Balance 0 ml Intake Oral 0 ml Output Stool Total 0 ml # Voids 3 Exam HEENT pupils are reactive Neck is supple CV is S1-S2 regular rate and rhythm Diminished breath sounds bases GI positive bowel sound Extremity no edema PACKER DENTURE no motor deficit Medications Current Medications Medications Dose Ordered Sig/Martha Route Start Time Stop Time Status Last Admin Dose Admin Acetaminophen 325 mg Q4HP PRN PO 07/30/25 13:30 07/31/25 11:03 325 MG Ondansetron HCl 4 mg Q4HP PRN IV 07/30/25 13:30 07/31/25 23:44 4 MG Morphine Sulfate 2 mg Q4HPRN PRN IV 07/30/25 14:30 08/01/25 02:56 2 MG Metoclopramide HCl 5 mg Q8HR IV 07/30/25 22:00 08/01/25 14:19 5 MG Sodium Chloride 1,000 ml @ 75 mls/hr [id number] IV 07/30/25 13:45 08/01/25 01:16 75 MLS/HR Tamsulosin HCl 0.4 mg QPM PO 07/30/25 18:00 07/31/25 17:51 0.4 MG Lidocaine HCl 5 ml Q3HPRN PRN MT 07/30/25 17:00 Sucralfate 1 gm ACHS PO 07/30/25 17:00 08/01/25 11:25 1 GM Pantoprazole Sodium 40 mg BID@0600,1800 IV 07/31/25 06:00 08/01/25 05:53 40 MG Al Hydrox/Mg Hydrox/Simethicone 15 ml Q8HP PRN PO 07/30/25 17:15 Docusate Sodium 100 mg BID PO 07/31/25 22:00 08/01/25 11:25 100 MG Sennosides 17.2 mg HS PO 07/31/25 22:00 07/31/25 21:14 17.2 MG Polyethylene Glycol 17 gm DAILY PO 08/02/25 10:00 Laboratory Results Laboratory Tests 07/31/25 06:06 Urinalysis Test 07/31/25 14:00 Urine Color Light-yellow (Yellow) Urine Clarity Clear (Clear) Urine pH 6.0 (5.0-9.0) Urine Specific [place] 1.016 (1.001-1.035) Urine Protein Negative (Negative) Urine Ketones 2+ (Negative) H Urine Blood Negative /uL (Negative) Urine Nitrite Negative (Negative) Urine Bilirubin Negative (Negative) Urine Urobilinogen Normal mg/dL (Negative) Urine Leukocyte Esterase Negative /uL (Negative) Urine RBC 1 /hpf (0 - 4) Urine Microscopic WBC 1 /HPF (0-5) Urine Squamous Epithelial Cells Few /hpf (<5) Urine Bacteria None seen /hpf (None Seen) Urine Mucus Few (None Seen) Urine Glucose Normal mg/dL (Normal) Microbiology Microbiology Date/Time Source Procedure Growth Status 07/30/25 21:10 Nose MRSA Screen - Final Complete Assessment/Plan Assessment/Plan 30-year-old female with a known history of developmental delay who initially presented to the hospital with a abdominal pain nausea found to have 1. Intractable abdominal pain with the nausea 2. Gastritis rule out upper GI bleed 3. Developmental delay 4. Bilateral nephrolithiasis nonobstructing -continue Protonix and Carafate follow up GI recommendations regarding any endoscopy. Plan discussed with: Patient, Other My Orders Orders - ALICIA RIVAS MD Procedure Category Date Status Time Polyethylene Glycol PHA 08/02/25 In Process 17g Powder (Miralax 10:00 Date of Service: Aug 01, 2025 Billing Provider: AILCIA RIVAS MD Common Visit Codes: [id number] INP/OBS CARE(HIGH) ALICIA RIVAS MD Aug 01, 2025 15:41
--- NOTE | 2025-08-01 20:06 | DVHPN2 ---
Progress Note - Dictate Date Seen: Aug 01, 2025 Medical Necessity Reason Pt with a Central, PICC or Fol: No Subjective No new complaints; no active GI bleeding reported Patient resting comfortably Patient was started on MiraLax for her constipation Prior history of kidney stone UTI and pyelonephritis patient takes hydroxyzine HCL 50 mg 2 tabs for sleep. vital signs Vital Sign Date Time Temp Pulse Resp B/P (MAP) Pulse Ox O2 Delivery O2 Flow Rate FiO2 08/01/25 16:47 98.1 76 16 109/67 (81) 98 98.1 08/01/25 08:00 Room Air* 0 21 Total Intake and Output 07/31/25 07/31/25 08/01/25 15:00 23:00 07:00 Intake Total 0 ml 0 ml Output Total 0 ml Balance 0 ml 0 ml medications Current Medications Medications Dose Ordered Sig/Martha Route Start Time Stop Time Status Last Admin Dose Admin Acetaminophen 325 mg Q4HP PRN PO 07/30/25 13:30 07/31/25 11:03 325 MG Ondansetron HCl 4 mg Q4HP PRN IV 07/30/25 13:30 07/31/25 23:44 4 MG Morphine Sulfate 2 mg Q4HPRN PRN IV 07/30/25 14:30 08/01/25 02:56 2 MG Metoclopramide HCl 5 mg Q8HR IV 07/30/25 22:00 08/01/25 14:19 5 MG Sodium Chloride 1,000 ml @ 75 mls/hr [id number] IV 07/30/25 13:45 08/01/25 18:08 75 MLS/HR Tamsulosin HCl 0.4 mg QPM PO 07/30/25 18:00 08/01/25 18:04 0.4 MG Lidocaine HCl 5 ml Q3HPRN PRN MT 07/30/25 17:00 Sucralfate 1 gm ACHS PO 07/30/25 17:00 08/01/25 18:04 1 GM Pantoprazole Sodium 40 mg BID@0600,1800 IV 07/31/25 06:00 08/01/25 18:04 40 MG Al Hydrox/Mg Hydrox/Simethicone 15 ml Q8HP PRN PO 07/30/25 17:15 Docusate Sodium 100 mg BID PO 07/31/25 22:00 08/01/25 11:25 100 MG Sennosides 17.2 mg HS PO 07/31/25 22:00 07/31/25 21:14 17.2 MG Polyethylene Glycol 17 gm DAILY PO 08/02/25 10:00 objective General: Alert and oriented no distress HEENT: NC/AT EOMI PERRLA SOB clear Heart: Regular rate and rhythm Abdomen: Soft nondistended, mild tenderness to palpation Extremity: No clubbing cyanosis or edema laboratory and microbiology Laboratory Tests 07/31/25 06:06 Test 07/31/25 06:06 Range/Units Serum Glucose 80 74-106 mg/dL Problems(with codes): (1) Nausea and vomiting (2) Acute abdominal pain Prognosis Plan Advance diet as tolerated MiraLax 17 g p.o. daily Check stool for occult blood Continue Protonix 40 mg p.o. twice a day Continue Carafate 1 g p.o. twice a day Continue conservative treatment for now If the patient continues to be symptomatic then I will be standing by for a possible endoscopy on 08/03/25 If discharged EGD can be scheduled electively as an outpatient Dietary Evaluation Review Comments: current problem: constipation, NPO pending for GI consult. Advance to diet as tolerated when constipation resolved and medically feaisble Expected Outcomes/Goals: normal GI function. diet as tolerated Plan discussed with: Patient NIDHI SOTO MD Aug 01, 2025 20:06
[2025-08-02 05:00] VITALS: BP 115/71; PULSE 93; RESP 16; TEMP 98.1; O2SAT 99
[2025-08-02] MEDS: POLYETHYLENE GLYCOL 17 GM PWDR PO SCH (08:57)
[2025-08-02 09:00] VITALS: BP 99/67; PULSE 104; RESP 20; TEMP 97.8; O2SAT 96
--- NOTE | 2025-08-02 12:37 | DVHPN2 ---
Subjective No new complaints Patient is still having difficulty eating per grandma at bedside Also reporting a weight loss of 100 lb in the past one year Last bowel movement one-week ago Changes from previous H/P or p: No Changes Objective Vitals Vital Signs Date Time Temp Pulse Resp B/P (MAP) Pulse Ox O2 Delivery O2 Flow Rate FiO2 08/02/25 09:00 97.8 104 20 99/67 (78) 96 97.8 08/02/25 07:50 Room Air* 0 21 Intake/Output Intake and Output 08/02/25 07:00 Intake Total 500 ml Balance 500 ml Intake Oral 500 ml # Voids 3 Exam General: Alert and oriented no distress HEENT: NC/AT EOMI PERRLA SOB clear Heart: Regular rate and rhythm Abdomen: Soft nondistended, mild tenderness to palpation Extremity: No clubbing cyanosis or edema Medications Current Medications Medications Dose Ordered Sig/Martha Route Start Time Stop Time Status Last Admin Dose Admin Acetaminophen 325 mg Q4HP PRN PO 07/30/25 13:30 07/31/25 11:03 325 MG Ondansetron HCl 4 mg Q4HP PRN IV 07/30/25 13:30 08/01/25 23:17 4 MG Morphine Sulfate 2 mg Q4HPRN PRN IV 07/30/25 14:30 08/02/25 03:02 2 MG Metoclopramide HCl 5 mg Q8HR IV 07/30/25 22:00 08/02/25 05:47 5 MG Sodium Chloride 1,000 ml @ 75 mls/hr [id number] IV 07/30/25 13:45 08/01/25 18:08 75 MLS/HR Tamsulosin HCl 0.4 mg QPM PO 07/30/25 18:00 08/01/25 18:04 0.4 MG Lidocaine HCl 5 ml Q3HPRN PRN MT 07/30/25 17:00 Sucralfate 1 gm ACHS PO 07/30/25 17:00 08/02/25 11:13 1 GM Pantoprazole Sodium 40 mg BID@0600,1800 IV 07/31/25 06:00 08/02/25 05:47 40 MG Al Hydrox/Mg Hydrox/Simethicone 15 ml Q8HP PRN PO 07/30/25 17:15 Docusate Sodium 100 mg BID PO 07/31/25 22:00 121/25 08:57 100 MG Sennosides 17.2 mg HS PO 07/31/25 22:00 08/01/25 21:34 17.2 MG Polyethylene Glycol 17 gm DAILY PO 08/02/25 10:00 08/02/25 08:57 17 GM Laboratory Results Laboratory Tests 07/31/25 06:06 Urinalysis Test 07/31/25 14:00 Urine Color Light-yellow (Yellow) Urine Clarity Clear (Clear) Urine pH 6.0 (5.0-9.0) Urine Specific [place] 1.016 (1.001-1.035) Urine Protein Negative (Negative) Urine Ketones 2+ (Negative) H Urine Blood Negative /uL (Negative) Urine Nitrite Negative (Negative) Urine Bilirubin Negative (Negative) Urine Urobilinogen Normal mg/dL (Negative) Urine Leukocyte Esterase Negative /uL (Negative) Urine RBC 1 /hpf (0 - 4) Urine Microscopic WBC 1 /HPF (0-5) Urine Squamous Epithelial Cells Few /hpf (<5) Urine Bacteria None seen /hpf (None Seen) Urine Mucus Few (None Seen) Urine Glucose Normal mg/dL (Normal) Microbiology Microbiology Date/Time Source Procedure Growth Status 07/30/25 21:10 Nose MRSA Screen - Final Complete Labs and/or images reviewed: Labs reviewed by me, Image(s) reviewed by me Assessment/Plan Assessment/Plan Nausea and vomiting Acute abdominal pain Constipation Plan Discussed with Dr. Hay Schedule for EGD tomorrow 08/03/2025. Discussed risks, benefits of procedure and sedation with patient and grandma at bedside Lactulose Plan discussed with: Patient, Other (Grandma and RN) Date of Service: Aug 02, 2025 Billing Provider: IKER RAMOS Common Visit Codes: [id number] INP/OBS CARE(HIGH) IKER RAMOS Aug 02, 2025 12:37
[2025-08-02 13:00] VITALS: BP 103/52; PULSE 79; RESP 18; O2SAT 100
--- NOTE | 2025-08-02 14:14 | DVHPN2 ---
Reviewed: H&P Changes from previous H/P or p: No Changes General: Per HPI Objective Vitals Vital Signs Date Time Temp Pulse Resp B/P (MAP) Pulse Ox O2 Delivery O2 Flow Rate FiO2 08/02/25 09:00 97.8 104 20 99/67 (78) 96 97.8 08/02/25 07:50 Room Air* 0 21 Intake/Output Intake and Output 08/02/25 06:59 Intake Total 500 ml Balance 500 ml Intake Oral 500 ml # Voids 3 Exam General: Alert and oriented no distress HEENT: NC/AT EOMI PERRLA SOB clear Heart: Regular rate and rhythm Abdomen: BS normoactive, Soft nondistended, mild tenderness to palpation epigastrium and supraumbilical Extremity: No clubbing cyanosis or edema Medications Current Medications Medications Dose Ordered Sig/Martha Route Start Time Stop Time Status Last Admin Dose Admin Acetaminophen 325 mg Q4HP PRN PO 07/30/25 13:30 07/31/25 11:03 325 MG Ondansetron HCl 4 mg Q4HP PRN IV 07/30/25 13:30 08/01/25 23:17 4 MG Morphine Sulfate 2 mg Q4HPRN PRN IV 07/30/25 14:30 08/02/25 03:02 2 MG Metoclopramide HCl 5 mg Q8HR IV 07/30/25 22:00 08/02/25 13:19 5 MG Sodium Chloride 1,000 ml @ 75 mls/hr [id number] IV 07/30/25 13:45 08/01/25 18:08 75 MLS/HR Tamsulosin HCl 0.4 mg QPM PO 07/30/25 18:00 08/01/25 18:04 0.4 MG Lidocaine HCl 5 ml Q3HPRN PRN MT 07/30/25 17:00 Sucralfate 1 gm ACHS PO 07/30/25 17:00 08/02/25 11:13 1 GM Pantoprazole Sodium 40 mg BID@0600,1800 IV 07/31/25 06:00 08/02/25 05:47 40 MG Al Hydrox/Mg Hydrox/Simethicone 15 ml Q8HP PRN PO 07/30/25 17:15 Docusate Sodium 100 mg BID PO 07/31/25 22:00 08/02/25 08:57 100 MG Sennosides 17.2 mg HS PO 07/31/25 22:00 08/01/25 21:34 17.2 MG Polyethylene Glycol 17 gm DAILY PO 08/02/25 10:00 08/02/25 08:57 17 GM Lactulose 30 ml BID PO 08/02/25 22:00 Laboratory Results Laboratory Tests 07/31/25 06:06 Urinalysis Test 07/31/25 14:00 Urine Color Light-yellow (Yellow) Urine Clarity Clear (Clear) Urine pH 6.0 (5.0-9.0) Urine Specific [place] 1.016 (1.001-1.035) Urine Protein Negative (Negative) Urine Ketones 2+ (Negative) H Urine Blood Negative /uL (Negative) Urine Nitrite Negative (Negative) Urine Bilirubin Negative (Negative) Urine Urobilinogen Normal mg/dL (Negative) Urine Leukocyte Esterase Negative /uL (Negative) Urine RBC 1 /hpf (0 - 4) Urine Microscopic WBC 1 /HPF (0-5) Urine Squamous Epithelial Cells Few /hpf (<5) Urine Bacteria None seen /hpf (None Seen) Urine Mucus Few (None Seen) Urine Glucose Normal mg/dL (Normal) Microbiology Microbiology Date/Time Source Procedure Growth Status 07/30/25 21:10 Nose MRSA Screen - Final Complete Labs and/or images reviewed: Labs reviewed by me, Image(s) reviewed by me Assessment/Plan Assessment/Plan 30 year patient who presents to the ED with chief complaint of diffuse colicky abdominal pain which started one week before her admission associated with nausea, vomiting (questionably bloody) and green diarrhea which now progress to constipation. Patient was evaluated in [facility], where she was diagnosed with gastritis (did not complete any endoscopies), started on empiric medical therapy with Carafate, omeprazole and lidocaine, with no relief, prompting her visit to the ED. Patient also reports reduced appetite and unintentional weight loss of approximately 100 lb in the past year. Obtain partial history from grandmother who was at bedside since patient has developmental delay. Denies any other associated symptoms. - Past medical history: Developmental delay, kidney stones status post surgery (unsure what surgery) 08/02: Patient is developmental delay, g not bedside communicates patient's complaints. Grandma shows signs of care GERD take her fatigue. Patient has abdominal pain not tolerating enough p.o.. Patient has ongoing chronic back pain,? Likely due to decreased physical activity? . Patient has been taking ibuprofen for that reason. Grandma says patient is having increased pain with p.o. intake, concerning for PUD gastritis. Patient's grandma also complaining that patient has not had a bowel movement for multiple days. Constipation possible. No chronic opiate intake. GI has evaluated the patient and plan for EGD tomorrow. Patient is on full liquid diet, we will do NPO midnight. Stool occult blood pending. Hemoglobin stable. Diagnosis:. PUD, likely Gastritis, possible Acute on chronic constipation possible Intractable abdominal pain, due to above likely. Intractable nausea P.o. intolerance Punctate nonobstructive bilateral nephrolithiasis Thrombocytosis Developmental delay Overweight Plan: PPI IV b.i.d. Protonix IV daily GI consult, plan for EGD Continue other home medications Avoid NSAIDs Indicated IV pantoprazole, sucralfate, lidocaine and Mylanta Med surge Full code Plan discussed with: Patient Date of Service: Aug 02, 2025 Billing Provider: LAMONT POLANCO MD Common Visit Codes: [id number] INP/OBS CARE(HIGH) LAMONT POLANCO MD Aug 02, 2025 14:14
[2025-08-02 17:00] VITALS: BP 141/68; PULSE 63; RESP 20; TEMP 97.4; O2SAT 99
[2025-08-02 20:00] VITALS: PULSE 60; RESP 16; O2SAT 98
[2025-08-02 21:00] VITALS: BP 112/62; PULSE 60; RESP 16; TEMP 98.1; O2SAT 98
[2025-08-02] MEDS: LACTULOSE 20Gm/30ML SOLN PO SCH (22:17)
[2025-08-02] MEDS: MELATONIN 5 MG TAB PO ONE (23:14)
[2025-08-03] VITALS (8 sets, daily range): BP systolic 112–129; BP diastolic 63–83; PULSE 75–98; RESP 14–20; TEMP 97.5–98.4; O2SAT 94–100
[2025-08-03] MEDS: MAALOX PLUS or MAALOX 30 ML PO PRN (00:57)
[2025-08-03 06:27] LABS: Alanine Aminotransferase 15 U/L (7-40); Albumin 3.9 g/dL (3.2-4.8); Anion Gap 13 (5-15); Calcium 9.2 mg/dL (8.7-10.4); Carbon Dioxide 23 mmol/L (20-31); Chloride 106 mmol/L (98-107); Glucose 82 mg/dL (74-106); Potassium 3.6 mmol/L (3.5-5.1); Sodium 142 mmol/L (136-145); Total Protein 6.7 g/dL (5.7-8.2)
[2025-08-03 06:28] LABS: Alkaline Phosphatase 44 U/L (46-116); BUN/Creatinine Ratio 5.4 (10.0-20.0); Bilirubin, Total 1.2 mg/dL (0.2-1.0); Blood Urea Nitrogen < 5 mg/dL (9-23)
[2025-08-03 06:34] LABS: Hematocrit 36.5 % (36.0-46.0); Hemoglobin 12.4 g/dL (12.2-16.2); Mean Corpuscular Hemoglobin 32.3 pg (28.0-32.0); Mean Corpuscular Volume 95.4 fL (80.0-100.0); Nucleated Red Blood Cells % 0.1 %
[2025-08-03 09:04] LABS: INR 1.16 (0.9-1.15); Partial Thromboplastin Time 31.3 SEC (24.5-34.5); Prothrombin Time 12.1 sec (9.3-11.8)
[2025-08-03] MEDS: LORazepam 2MG/ML-1ML VIAL IV ONE (10:30)
--- NOTE | 2025-08-03 10:41 | DVHPN2 ---
Reviewed: H&P Changes from previous H/P or p: No Changes General: Per HPI Objective Vitals Vital Signs Date Time Temp Pulse Resp B/P (MAP) Pulse Ox O2 Delivery O2 Flow Rate FiO2 08/03/25 05:00 98.4 98 20 118/75 (89) 94 98.4 08/02/25 20:00 Room Air* 0 21 Intake/Output Intake and Output 08/03/25 07:00 Intake Total 1810 ml Balance 1810 ml Intake Oral 1210 ml IV Total 600 ml # Voids 5 Exam General: Alert and oriented no distress HEENT: NC/AT EOMI PERRLA SOB clear Heart: Regular rate and rhythm Abdomen: BS normoactive, Soft nondistended, mild tenderness to palpation epigastrium and supraumbilical Extremity: No clubbing cyanosis or edema Medications Current Medications Medications Dose Ordered Sig/Martha Route Start Time Stop Time Status Last Admin Dose Admin Acetaminophen 325 mg Q4HP PRN PO 07/30/25 13:30 08/02/25 23:02 325 MG Ondansetron HCl 4 mg Q4HP PRN IV 07/30/25 13:30 08/01/25 23:17 4 MG Morphine Sulfate 2 mg Q4HPRN PRN IV 07/30/25 14:30 08/02/25 03:02 2 MG Metoclopramide HCl 5 mg Q8HR IV 07/30/25 22:00 08/03/25 06:04 5 MG Sodium Chloride 1,000 ml @ 75 mls/hr [id number] IV 07/30/25 13:45 08/02/25 22:41 75 MLS/HR Tamsulosin HCl 0.4 mg QPM PO 07/30/25 18:00 08/02/25 17:26 0.4 MG Lidocaine HCl 5 ml Q3HPRN PRN MT 07/30/25 17:00 Sucralfate 1 gm ACHS PO 07/30/25 17:00 08/02/25 22:17 1 GM Pantoprazole Sodium 40 mg BID@0600,1800 IV 07/31/25 06:00 08/03/25 05:19 40 MG Al Hydrox/Mg Hydrox/Simethicone 15 ml Q8HP PRN PO 07/30/25 17:15 08/03/25 00:57 15 ML Docusate Sodium 100 mg BID PO 07/31/25 22:00 08/02/25 22:18 100 MG Sennosides 17.2 mg HS PO 07/31/25 22:00 08/02/25 22:18 17.2 MG Polyethylene Glycol 17 gm DAILY PO 08/02/25 10:00 08/02/25 08:57 17 GM Lactulose 30 ml BID PO 08/02/25 22:00 08/02/25 22:17 30 ML Laboratory Results Laboratory Tests 08/03/25 05:49 Chemistry Test 08/03/25 05:49 Albumin 3.9 g/dL (3.2-4.8) Calcium Level 9.2 mg/dL (8.7-10.4) Total Protein 6.7 g/dL (5.7-8.2) Coagulation Test 08/03/25 08:30 Prothrombin Time 12.1 sec (9.3-11.8) H Prothrombin Time INR 1.16 (0.9-1.15) H Activated Partial Thromboplast Time 31.3 SEC (24.5-34.5) LFT Test 08/03/25 05:49 Alanine Aminotransferase (ALT) 15 U/L (7-40) Alkaline Phosphatase 44 U/L (46-116) L Aspartate Amino Transferase (AST) 19 U/L (13-40) Total Bilirubin 1.2 mg/dL (0.2-1.0) H Urinalysis Test 07/31/25 14:00 Urine Color Light-yellow (Yellow) Urine Clarity Clear (Clear) Urine pH 6.0 (5.0-9.0) Urine Specific [place] 1.016 (1.001-1.035) Urine Protein Negative (Negative) Urine Ketones 2+ (Negative) H Urine Blood Negative /uL (Negative) Urine Nitrite Negative (Negative) Urine Bilirubin Negative (Negative) Urine Urobilinogen Normal mg/dL (Negative) Urine Leukocyte Esterase Negative /uL (Negative) Urine RBC 1 /hpf (0 - 4) Urine Microscopic WBC 1 /HPF (0-5) Urine Squamous Epithelial Cells Few /hpf (<5) Urine Bacteria None seen /hpf (None Seen) Urine Mucus Few (None Seen) Urine Glucose Normal mg/dL (Normal) Microbiology Microbiology Date/Time Source Procedure Growth Status 07/30/25 21:10 Nose MRSA Screen - Final Complete Labs and/or images reviewed: Labs reviewed by me, Image(s) reviewed by me Assessment/Plan Assessment/Plan 30 year patient who presents to the ED with chief complaint of diffuse colicky abdominal pain which started one week before her admission associated with nausea, vomiting (questionably bloody) and green diarrhea which now progress to constipation. Patient was evaluated in [facility], where she was diagnosed with gastritis (did not complete any endoscopies), started on empiric medical therapy with Carafate, omeprazole and lidocaine, with no relief, prompting her visit to the ED. Patient also reports reduced appetite and unintentional weight loss of approximately 100 lb in the past year. Obtain partial history from grandmother who was at bedside since patient has developmental delay. Denies any other associated symptoms. - Past medical history: Developmental delay, kidney stones status post surgery (unsure what surgery) 08/02: Patient is developmental delay, g not bedside communicates patient's complaints. Grandma shows signs of care GERD take her fatigue. Patient has abdominal pain not tolerating enough p.o.. Patient has ongoing chronic back pain,? Likely due to decreased physical activity? . Patient has been taking ibuprofen for that reason. Grandma says patient is having increased pain with p.o. intake, concerning for PUD gastritis. Patient's grandma also complaining that patient has not had a bowel movement for multiple days. Constipation possible. No chronic opiate intake. GI has evaluated the patient and plan for EGD tomorrow. Patient is on full liquid diet, we will do NPO midnight. Stool occult blood pending. Hemoglobin stable. 08/03: Patient very nervous and anxious given her developmental delay. We will give her Ativan 1 mg IV once. Plan for EGD today. Remaining NPO. Diagnosis:. PUD, likely Gastritis, possible Acute on chronic constipation possible Intractable abdominal pain, due to above likely. Intractable nausea P.o. intolerance Punctate nonobstructive bilateral nephrolithiasis Thrombocytosis Developmental delay Overweight Plan: PPI IV b.i.d. Protonix IV daily GI consult, plan for EGD Continue other home medications Avoid NSAIDs Indicated IV pantoprazole, sucralfate, lidocaine and Mylanta Med surge Full code Plan discussed with: Patient Date of Service: Aug 03, 2025 Billing Provider: LAMONT POLANCO MD Common Visit Codes: [id number] INP/OBS CARE(HIGH) LAMONT POLANCO MD Aug 03, 2025 10:41
[2025-08-03] MEDS ORDERED: MIDAZOLAM HCL 5 MG/ML-1ML VIAL ONE (14:12)
[2025-08-03] MEDS ORDERED: fentaNYL CITRATE 100 MCG/2 ML VL ONE ×2 (14:13→14:24)
[2025-08-03] MEDS ORDERED: diphenhydrAMINE HCL 50 MG/1 ML VL ONE (14:14)
[2025-08-03] MEDS ORDERED: PROPOFOL 10 MG/ML 20 ML IV ONE (14:25)
--- NOTE | 2025-08-03 14:40 | DVHOP2 ---
Operative Report DATE OF OPERATION: 08/03/25 PROCEDURE: Upper Endoscopy with biopsy. PREOPERATIVE INDICATION: The patient is a 30 -year-old female undergoing endoscopy for epigastric pain nausea vomiting POSTOPERATIVE DIAGNOSES: 1. Wdou-[id number]-yynncumn gastritis involving the antrum and body of the stomach with mild pylorospasm PROCEDURE PERFORMED BY: Nidhi Hay GI NURSE: Holly SCOPE: Olympus videoendoscope. ASA CLASS: 2. PREOPERATIVE MEDICATIONS: Mac sedation, Dr. Cohen PROCEDURE IN DETAIL: After obtaining an informed consent, the patient was placed on left lateral decubitus position. The patient was then sedated with the above medications. A bite block was placed between her teeth. The endoscope was then passed through the oropharynx, into the esophagus, and through the stomach and pylorus up to the second and third part of the duodenum. The endoscope was then withdrawn. The 2nd and 3rd part of the duodenal and the duodenal bulb were normal. Duodenal biopsies were obtained The pre-pyloric area antrum and body of the stomach showed mild gastritis with some hyperemia erythema. There was mild mild pylorospasm Gastric biopsies were obtained. On retroflexion the fundus and cardia and angularis were normal. The endoscope was then straightened withdrawn into distal esophagus Patient had a slightly irregular squamocolumnar junction with no significant hiatal hernia and no esophagitis. The remaining distal and proximal esophagus and oropharynx were unremarkable The patient tolerated the procedure well without difficulty. COMPLICATIONS : None SPECIMENS: Duodenal biopsies Gastric biopsies DISPOSITION: Transfer back to the floor Stable PLAN: 1. Await for biopsy result 2. Will place pt on Protonix 40 mg p.o. q.a.m. 3. Carafate 1 g p.o. twice a day 4. DC aspirin NSAIDs smoking alcohol 5. Resume GI soft diet advance as tolerated 6. Outpatient follow up with me in 2-4 weeks to review results and discuss biopsy results and further management NIDHI HAY MD Aug 03, 2025 14:40
[2025-08-03] MEDS: MELATONIN 5 MG TAB PO PRN (21:14)
[2025-08-04 00:36] VITALS: BP 92/57; PULSE 113; RESP 17; TEMP 97.8; O2SAT 97
[2025-08-04 05:00] VITALS: BP 118/79; PULSE 94; RESP 17; TEMP 97.6; O2SAT 99
[2025-08-04 06:09] LABS: Hematocrit 35.5 % (36.0-46.0); Hemoglobin 12.2 g/dL (12.2-16.2); Mean Corpuscular Hemoglobin 32.7 pg (28.0-32.0); Mean Corpuscular Volume 95.2 fL (80.0-100.0); Nucleated Red Blood Cells % 0.1 %
[2025-08-04 06:27] LABS: Alanine Aminotransferase 16 U/L (7-40); Alkaline Phosphatase 47 U/L (46-116); Anion Gap 18 (5-15); Calcium 9.1 mg/dL (8.7-10.4); Chloride 106 mmol/L (98-107); Glucose 84 mg/dL (74-106); Sodium 143 mmol/L (136-145); Total Protein 6.8 g/dL (5.7-8.2)
[2025-08-04 06:28] LABS: Albumin 3.9 g/dL (3.2-4.8)
[2025-08-04 06:29] LABS: Bilirubin, Total 1.1 mg/dL (0.2-1.0)
[2025-08-04 06:31] LABS: Carbon Dioxide 19 mmol/L (20-31); Potassium 3.4 mmol/L (3.5-5.1)
[2025-08-04 06:32] LABS: BUN/Creatinine Ratio 5.8 (10.0-20.0); Blood Urea Nitrogen < 5 mg/dL (9-23)
[2025-08-04 09:00] VITALS: BP 116/76; PULSE 95; RESP 18; TEMP 98.6; O2SAT 98
--- NOTE | 2025-08-04 11:00 | DVHPN2 ---
Reviewed: H&P Changes from previous H/P or p: No Changes General: Per HPI Objective Vitals Vital Signs Date Time Temp Pulse Resp B/P (MAP) Pulse Ox O2 Delivery O2 Flow Rate FiO2 08/04/25 09:00 98.6 95 18 116/76 (89) 98 98.6 08/04/25 07:46 Room Air* 0 21 Intake/Output Intake and Output 08/04/25 07:00 Intake Total 910 ml Balance 910 ml Intake Oral 400 ml IV Total 510 ml # Voids 6 Exam General: Alert and oriented no distress HEENT: NC/AT EOMI PERRLA SOB clear Heart: Regular rate and rhythm Abdomen: BS normoactive, Soft nondistended, mild tenderness to palpation epigastrium and supraumbilical Extremity: No clubbing cyanosis or edema Medications Current Medications Medications Dose Ordered Sig/Martha Route Start Time Stop Time Status Last Admin Dose Admin Acetaminophen 325 mg Q4HP PRN PO 07/30/25 13:30 08/04/25 03:39 325 MG Ondansetron HCl 4 mg Q4HP PRN IV 07/30/25 13:30 08/01/25 23:17 4 MG Morphine Sulfate 2 mg Q4HPRN PRN IV 07/30/25 14:30 08/02/25 03:02 2 MG Metoclopramide HCl 5 mg Q8HR IV 07/30/25 22:00 08/04/25 05:17 5 MG Sodium Chloride 1,000 ml @ 75 mls/hr [id number] IV 07/30/25 13:45 08/03/25 21:37 75 MLS/HR Tamsulosin HCl 0.4 mg QPM PO 07/30/25 18:00 08/03/25 17:32 0.4 MG Lidocaine HCl 5 ml Q3HPRN PRN MT 07/30/25 17:00 Sucralfate 1 gm ACHS PO 07/30/25 17:00 08/04/25 05:19 1 GM Pantoprazole Sodium 40 mg BID@0600,1800 IV 07/31/25 06:00 08/04/25 05:20 40 MG Al Hydrox/Mg Hydrox/Simethicone 15 ml Q8HP PRN PO 07/30/25 17:15 08/03/25 00:57 15 ML Docusate Sodium 100 mg BID PO 07/31/25 22:00 08/04/25 09:20 100 MG Sennosides 17.2 mg HS PO 07/31/25 22:00 08/02/25 22:18 17.2 MG Polyethylene Glycol 17 gm DAILY PO 08/02/25 10:00 08/04/25 09:20 17 GM Lactulose 30 ml BID PO 08/02/25 22:00 08/02/25 22:17 30 ML Melatonin 10 mg HS PRN PO 08/03/25 21:00 08/03/25 21:14 10 MG Laboratory Results Laboratory Tests 08/04/25 05:30 Chemistry Test 08/04/25 05:30 Albumin 3.9 g/dL (3.2-4.8) Calcium Level 9.1 mg/dL (8.7-10.4) Total Protein 6.8 g/dL (5.7-8.2) LFT Test 08/04/25 05:30 Alanine Aminotransferase (ALT) 16 U/L (7-40) Alkaline Phosphatase 47 U/L (46-116) Aspartate Amino Transferase (AST) 21 U/L (13-40) Total Bilirubin 1.1 mg/dL (0.2-1.0) H Urinalysis Test 07/31/25 14:00 Urine Color Light-yellow (Yellow) Urine Clarity Clear (Clear) Urine pH 6.0 (5.0-9.0) Urine Specific [place] 1.016 (1.001-1.035) Urine Protein Negative (Negative) Urine Ketones 2+ (Negative) H Urine Blood Negative /uL (Negative) Urine Nitrite Negative (Negative) Urine Bilirubin Negative (Negative) Urine Urobilinogen Normal mg/dL (Negative) Urine Leukocyte Esterase Negative /uL (Negative) Urine RBC 1 /hpf (0 - 4) Urine Microscopic WBC 1 /HPF (0-5) Urine Squamous Epithelial Cells Few /hpf (<5) Urine Bacteria None seen /hpf (None Seen) Urine Mucus Few (None Seen) Urine Glucose Normal mg/dL (Normal) Microbiology Microbiology Date/Time Source Procedure Growth Status 07/30/25 21:10 Nose MRSA Screen - Final Complete Labs and/or images reviewed: Labs reviewed by me, Image(s) reviewed by me Assessment/Plan Assessment/Plan 30 year patient who presents to the ED with chief complaint of diffuse colicky abdominal pain which started one week before her admission associated with nausea, vomiting (questionably bloody) and green diarrhea which now progress to constipation. Patient was evaluated in [facility], where she was diagnosed with gastritis (did not complete any endoscopies), started on empiric medical therapy with Carafate, omeprazole and lidocaine, with no relief, prompting her visit to the ED. Patient also reports reduced appetite and unintentional weight loss of approximately 100 lb in the past year. Obtain partial history from grandmother who was at bedside since patient has developmental delay. Denies any other associated symptoms. - Past medical history: Developmental delay, kidney stones status post surgery (unsure what surgery) 08/02: Patient is developmental delay, g not bedside communicates patient's complaints. Grandma shows signs of care GERD take her fatigue. Patient has abdominal pain not tolerating enough p.o.. Patient has ongoing chronic back pain,? Likely due to decreased physical activity? . Patient has been taking ibuprofen for that reason. Grandma says patient is having increased pain with p.o. intake, concerning for PUD gastritis. Patient's grandma also complaining that patient has not had a bowel movement for multiple days. Constipation possible. No chronic opiate intake. GI has evaluated the patient and plan for EGD tomorrow. Patient is on full liquid diet, we will do NPO midnight. Stool occult blood pending. Hemoglobin stable. 08/03: Patient very nervous and anxious given her developmental delay. We will give her Ativan 1 mg IV once. Plan for EGD today. Remaining NPO. 08/04: patient concern for discharge, concern for home safety. will consult psych social worker. EGD was nonconcerning with gastritis and pylorospasms. Diagnosis:. acuteGastritis, sp EGD 08/03/25 PUD, ruled out Acute on chronic constipation possible Intractable abdominal pain, due to above likely. Intractable nausea P.o. intolerance Punctate nonobstructive bilateral nephrolithiasis Thrombocytosis Developmental delay Overweight Plan: PPI IV b.i.d. Protonix IV daily GI consult, plan for EGD Continue other home medications Avoid NSAIDs Indicated IV pantoprazole, sucralfate, lidocaine and Mylanta Med surge Full code Plan discussed with: Patient My Orders Orders - LAMONT POLANCO MD Procedure Category Date Status Time * Programming Coordinator CONS 08/04/25 Transmitted Consult Date of Service: Aug 04, 2025 Billing Provider: LAMONT POLANCO MD Common Visit Codes: [id number] INP/OBS CARE(HIGH) LAMONT POLANCO MD Aug 04, 2025 11:00
--- NOTE | 2025-08-04 14:24 | DVHPN2 ---
Progress Note - Dictate Date Seen: Aug 04, 2025 Medical Necessity Reason Pt with a Central, PICC or Fol: No Subjective No new complaints; no active GI bleeding reported Mild epigastric pain, EGD showed mild gastritis Stable at 12.2, bilirubin stable at 1.1 Patient has anxiety and does not want to be discharged home Patient was started on MiraLax for her constipation vital signs Vital Sign Date Time Temp Pulse Resp B/P (MAP) Pulse Ox O2 Delivery O2 Flow Rate FiO2 08/04/25 09:00 98.6 95 18 116/76 (89) 98 98.6 08/04/25 07:46 Room Air* 0 21 Total Intake and Output 08/03/25 08/03/25 08/04/25 15:00 23:00 07:00 Intake Total 10 ml 500 ml 400 ml Balance 10 ml 500 ml 400 ml medications Current Medications Medications Dose Ordered Sig/Martha Route Start Time Stop Time Status Last Admin Dose Admin Acetaminophen 325 mg Q4HP PRN PO 07/30/25 13:30 08/04/25 03:39 325 MG Ondansetron HCl 4 mg Q4HP PRN IV 07/30/25 13:30 08/01/25 23:17 4 MG Morphine Sulfate 2 mg Q4HPRN PRN IV 07/30/25 14:30 08/02/25 03:02 2 MG Metoclopramide HCl 5 mg Q8HR IV 07/30/25 22:00 08/04/25 13:41 5 MG Sodium Chloride 1,000 ml @ 75 mls/hr [id number] IV 07/30/25 13:45 08/03/25 21:37 75 MLS/HR Tamsulosin HCl 0.4 mg QPM PO 07/30/25 18:00 08/03/25 17:32 0.4 MG Lidocaine HCl 5 ml Q3HPRN PRN MT 07/30/25 17:00 Sucralfate 1 gm ACHS PO 07/30/25 17:00 08/04/25 11:05 1 GM Pantoprazole Sodium 40 mg BID@0600,1800 IV 07/31/25 06:00 08/04/25 05:20 40 MG Al Hydrox/Mg Hydrox/Simethicone 15 ml Q8HP PRN PO 07/30/25 17:15 08/03/25 00:57 15 ML Docusate Sodium 100 mg BID PO 07/31/25 22:00 08/04/25 09:20 100 MG Sennosides 17.2 mg HS PO 07/31/25 22:00 08/02/25 22:18 17.2 MG Polyethylene Glycol 17 gm DAILY PO 08/02/25 10:00 08/04/25 09:20 17 GM Lactulose 30 ml BID PO 08/02/25 22:00 08/02/25 22:17 30 ML Melatonin 10 mg HS PRN PO 08/03/25 21:00 08/03/25 21:14 10 MG objective General: Alert and oriented no distress HEENT: NC/AT EOMI PERRLA SOB clear Heart: Regular rate and rhythm Abdomen: Soft nondistended, mild tenderness to palpation Extremity: No clubbing cyanosis or edema laboratory and microbiology Laboratory Tests 08/04/25 05:30 Test 08/04/25 05:30 Range/Units Serum Glucose 84 74-106 mg/dL Problems(with codes): (1) Nausea and vomiting (2) Acute abdominal pain Prognosis Plan Protonix 40 mg p.o. twice a day Carafate 1 g p.o. 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 Advance to diet as tolerated when constipation resolved and medically feaisble Expected Outcomes/Goals: normal GI function. diet as tolerated Plan discussed with: Patient NIDHI SOTO MD Aug 04, 2025 14:24
[2025-08-04 16:36] VITALS: BP 122/74; PULSE 91; RESP 20; TEMP 98.6; O2SAT 98
--- NOTE | 2025-08-04 16:52 | DVH ---
US limited, RUQ Indication: epigastric pain; elevated biliruubin Comparison: None Technique: Limited ultrasound of the abdomen was performed and reviewed. Findings: The pancreas is not seen due to overlying bowel gas. Unremarkable homogeneous liver echogenicity. No evidence of cholelithiasis or gallbladder wall thickening. Negative sonographic Cohen's sign. The common bile duct measures 3 mm. The right kidney is 9.8 cm. No evidence for hydronephrosis. IMPRESSION: NO ACUTE SONOGRAPHIC FINDINGS IN THE RIGHT UPPER QUADRANT.
[2025-08-04 21:00] VITALS: BP_SYST 111; BP_SYST 138; BP_DIAS 80; BP_DIAS 86; PULSE 84; PULSE 85; RESP 12; RESP 14; TEMP 98.1; TEMP 99.3; O2SAT 94; O2SAT 99
[2025-08-05 01:00] VITALS: BP 106/66; PULSE 119; RESP 16; TEMP 98; O2SAT 99
[2025-08-05 05:00] VITALS: BP 119/93; PULSE 79; RESP 17; TEMP 97.7; O2SAT 98
[2025-08-05 05:51] LABS: Anion Gap 12 (5-15); Carbon Dioxide 23 mmol/L (20-31); Sodium 145 mmol/L (136-145)
[2025-08-05 05:53] LABS: Calcium 9.0 mg/dL (8.7-10.4)
[2025-08-05 05:56] LABS: Chloride 110 mmol/L (98-107); Potassium 3.3 mmol/L (3.5-5.1)
[2025-08-05 05:57] LABS: Glucose 92 mg/dL (74-106)
[2025-08-05 05:58] LABS: BUN/Creatinine Ratio 6.0 (10.0-20.0); Blood Urea Nitrogen < 5 mg/dL (9-23)
[2025-08-05] MEDS: FLEET ENEMA(ADULT) 135 ML PR ONE (08:14)
[2025-08-05 12:58] VITALS: BP 126/72; PULSE 79; RESP 18; TEMP 97.2; O2SAT 98
[2025-08-05] MEDS ORDERED: DOCU-265 PO (13:22)
[2025-08-05] MEDS ORDERED: PANT40TA2 PO (13:22)
[2025-08-05] MEDS ORDERED: POLY33505 PO (13:22)
[2025-08-05] MEDS ORDERED: SUCR1SUS25 PO (13:22)
--- NOTE | 2025-08-05 13:23 | DVHDS2 ---
Discharge Summary Date of Admission Jul 30, 2025 at 13:29 Date of Discharge: Aug 05, 2025 Labs/Diagnostic Data: Laboratory Results Test 08/05/25 05:11 08/04/25 05:30 08/03/25 08:30 08/03/25 04:27 Sodium Level 145 mmol/L (136-145) Potassium Level 3.3 mmol/L (3.5-5.1) Chloride Level 110 mmol/L (98-107) Carbon Dioxide Level 23 mmol/L (20-31) Anion Gap 12 (5-15) Blood Urea Nitrogen < 5 mg/dL (9-23) Creatinine 0.83 mg/dL (0.550-1.02) Glomerular Filtration Rate Calc 97 mL/min (>90) BUN/Creatinine Ratio 6.0 (10.0-20.0) Serum Glucose 92 mg/dL (74-106) Calcium Level 9.0 mg/dL (8.7-10.4) White Blood Count 6.3 10^3/uL (4.4-10.8) Red Blood Count 3.72 10^6/uL (4.0-5.20) Hemoglobin 12.2 g/dL (12.2-16.2) Hematocrit 35.5 % (36.0-46.0) Mean Corpuscular Volume 95.2 fL (80.0-100.0) Mean Corpuscular Hemoglobin 32.7 pg (28.0-32.0) Mean Corpuscular Hemoglobin Concent 34.3 g/dL (32.0-36.0) Red Cell Distribution Width 13.7 % (11.8-14.3) Platelet Count 427 10^3/uL (140-450) Mean Platelet Volume 9.1 fL (6.9-10.8) Neutrophils (%) (Auto) 64.0 % (37.0-80.0) Lymphocytes (%) (Auto) 21.3 % (10.0-50.0) Monocytes (%) (Auto) 10.8 % (0.0-12.0) Eosinophils (%) (Auto) 3.1 % (0.0-7.0) Basophils (%) (Auto) 0.8 % (0.0-2.0) Neutrophils # (Auto) 4.1 10 ^3/uL (1.6-8.6) Lymphocytes # (Auto) 1.3 10 ^3/uL (0.4-5.4) Monocytes # (Auto) 0.7 10 ^3/uL (0-1.3) Eosinophils # (Auto) 0.2 10 ^3/uL (0-0.8) Basophils # (Auto) 0 10 ^3/uL (0-0.2) Nucleated Red Blood Cells 0.1 % Total Bilirubin 1.1 mg/dL (0.2-1.0) Aspartate Amino Transferase (AST) 21 U/L (13-40) Alanine Aminotransferase (ALT) 16 U/L (7-40) Alkaline Phosphatase 47 U/L (46-116) Total Protein 6.8 g/dL (5.7-8.2) Albumin 3.9 g/dL (3.2-4.8) Prothrombin Time 12.1 sec (9.3-11.8) Prothrombin Time INR 1.16 (0.9-1.15) Activated Partial Thromboplast Time 31.3 SEC (24.5-34.5) Stool Occult Blood Neg x1 (Negative) Stool Occult Blood Sample #3 (Negative) Stool for White Cells None seen Test 07/31/25 14:00 07/30/25 15:11 07/30/25 10:30 Urine Color Light-yellow (Yellow) Urine Clarity Clear (Clear) Urine pH 6.0 (5.0-9.0) Urine Specific [place] 1.016 (1.001-1.035) Urine Protein Negative (Negative) Urine Ketones 2+ (Negative) Urine Blood Negative /uL (Negative) Urine Nitrite Negative (Negative) Urine Bilirubin Negative (Negative) Urine Urobilinogen Normal mg/dL (Negative) Urine Leukocyte Esterase Negative /uL (Negative) Urine RBC 1 /hpf (0 - 4) Urine Microscopic WBC 1 /HPF (0-5) Urine Squamous Epithelial Cells Few /hpf (<5) Urine Bacteria None seen /hpf (None Seen) Urine Mucus Few (None Seen) Urine Glucose Normal mg/dL (Normal) Urine Opiates Screen Pos (NEGATIVE) Urine Fentanyl Screen Neg (NEGATIVE) Urine Barbiturates Screen Neg (NEGATIVE) Urine Phencyclidine Screen Neg (NEGATIVE) Urine Amphetamines Screen Neg (NEGATIVE) Urine Benzodiazepines Screen Neg (NEGATIVE) Urine Cocaine Screen Neg (NEGATIVE) Urine Cannabinoids Screen Neg (NEGATIVE) Lactic Acid Level 1.1 mmol/L (0.4-2.0) Ammonia < 10 umol/L (11-32) Hemoglobin A1c 4.7 % A1C (<5.7) Phosphorus Level 2.6 mg/dL (2.4-5.1) Magnesium Level 2.0 mg/dL (1.6-2.6) Direct Bilirubin 0.2 mg/dL (<0.3) Triglycerides Level 72 mg/dL (< 150) Cholesterol Level 228 mg/dL (< 200) LDL Cholesterol 145 mg/dL (< 100) HDL Cholesterol 55 mg/dL (40-59) Lipase 25 U/L (12-53) Vitamin B12 Level 936 pg/mL (211-911) Vitamin D 25-Hydroxy 27.9 ng/mL (30.0-100) Thyroid Stimulating Hormone (TSH) 1.87 uIU/mL (0.55-4.78) Beta HCG, Quantitative 0.6 mIU/mL (1.5-4.2) Other Laboratory Tests 08/05/25 05:11 08/04/25 05:30 Brief Hx & Hospital Course: 30 year patient who presents to the ED with chief complaint of diffuse colicky abdominal pain which started one week before her admission associated with nausea, vomiting (questionably bloody) and green diarrhea which now progress to constipation. Patient was evaluated in [facility], where she was diagnosed with gastritis (did not complete any endoscopies), started on empiric medical therapy with Carafate, omeprazole and lidocaine, with no relief, prompting her visit to the ED. Patient also reports reduced appetite and unintentional weight loss of approximately 100 lb in the past year. Obtain partial history from grandmother who was at bedside since patient has developmental delay. Denies any other associated symptoms. - Past medical history: Developmental delay, kidney stones status post surgery (unsure what surgery) 08/02: Patient is developmental delay, g not bedside communicates patient's complaints. Grandma shows signs of care GERD take her fatigue. Patient has abdominal pain not tolerating enough p.o.. Patient has ongoing chronic back pain,? Likely due to decreased physical activity? . Patient has been taking ibuprofen for that reason. Grandma says patient is having increased pain with p.o. intake, concerning for PUD gastritis. Patient's grandma also complaining that patient has not had a bowel movement for multiple days. Constipation possible. No chronic opiate intake. GI has evaluated the patient and plan for EGD tomorrow. Patient is on full liquid diet, we will do NPO midnight. Stool occult blood pending. Hemoglobin stable. 08/03: Patient very nervous and anxious given her developmental delay. We will give her Ativan 1 mg IV once. Plan for EGD today. Remaining NPO. 08/04: patient concern for discharge, concern for home safety. will consult social media executive. EGD was nonconcerning with gastritis and pylorospasms. 08/05 notified by SW theres no need for safety eval. patient malingering likely, safe to dc. tolerating po. dc with protonix, carafate, lactulose, miralax, docusate. Diagnosis:. acuteGastritis, sp EGD 08/03/25 PUD, ruled out Acute on chronic constipation possible Intractable abdominal pain, due to above likely. Intractable nausea P.o. intolerance Punctate nonobstructive bilateral nephrolithiasis Thrombocytosis Developmental delay Overweight plan: - continue protonix 40 daily. stop omeprazole. - continue carafate 2x/day. refill done. - for constipation: miralax 17g/day for 7 days , metamucil OTC daily, docusate 2x/day. - follow with gi to further eval abdominal symptoms - followup with GI to review pathology - follow up with pcp to review discharge. Condition at Discharge: Fair Final Diagnosis/Problems List acuteGastritis, sp EGD 08/03/25 PUD, ruled out Acute on chronic constipation possible Intractable abdominal pain, due to above likely. Intractable nausea P.o. intolerance Punctate nonobstructive bilateral nephrolithiasis Thrombocytosis Developmental delay Overweight Discharge Disposition: Home Discharge Instruct/Medications Scheduled Cyclobenzaprine Hcl (Cyclobenzaprine Hcl), 10 MG PO DAILYP, (Reported) Duloxetine Hcl (Cymbalta), 20 MG PO DAILY Ibuprofen Micronized (Ibuprofen), 800 MG PO TIDP, (Reported) Omeprazole (Gnp Omeprazole), 40 MG PO DAILY, (Reported) Polyethylene Glycol (Miralax), 17 GM PO DAILY Sucralfate (Sucralfate), 1 GM PO ACHS, (Reported) Tamsulosin Hcl (Tamsulosin Hcl), 0.4 MG PO DAILY, (Reported) Scheduled PRN Acetaminophen (Acetaminophen), 650 MG PO Q4HP PRN Lidocaine HCl (Mouth-Throat) (Lidocaine HCl Viscous), 2 % MT Q3HPRN PRN for PAIN SCALE 1 THRU 6, (Reported) Tramadol Hcl (Tramadol Hcl), 50 MG PO BIDPRN PRN for PAIN SCALE 1 THRU 6, (Reported) Discharge Statement: "Patient was advised to return to the ER or call 911 if any headaches, dizziness, shortness of breath, chest pain, abdominal pain, bleeding, fevers, or worsening of medical condition. Patient was counseled about treatment plan, medications, possible side effects, patientverbalized understanding. All questions were answered to the best of my ability. This discharge took greater then 30 minutes in planning, reviewing documentation, counseling the patient, and discussing with other team members." ASSESSMENT ASSESSMENT Assessment Date of Service: Aug 05, 2025 Billing Provider: LAMONT POLANCO MD Common Visit Codes: 72195-PCT/OBS DISCH DAY >30min LAMONT POLANCO MD Aug 05, 2025 13:23
[2025-08-05 13:43] VITALS: TEMP 36.2
[2025-08-05] MEDS: POTASSIUM EFFERVESENT TAB 25 MEQ PO ONE (13:49)
--- NOTE | 2025-08-09 13:33 | DVHPN2 ---
Reviewed: H&P General: Per HPI Laboratory Results Laboratory Tests 08/04/25 05:30 08/05/25 05:11 Urinalysis Test 07/31/25 14:00 Urine Color Light-yellow (Yellow) Urine Clarity Clear (Clear) Urine pH 6.0 (5.0-9.0) Urine Specific [place] 1.016 (1.001-1.035) Urine Protein Negative (Negative) Urine Ketones 2+ (Negative) H Urine Blood Negative /uL (Negative) Urine Nitrite Negative (Negative) Urine Bilirubin Negative (Negative) Urine Urobilinogen Normal mg/dL (Negative) Urine Leukocyte Esterase Negative /uL (Negative) Urine RBC 1 /hpf (0 - 4) Urine Microscopic WBC 1 /HPF (0-5) Urine Squamous Epithelial Cells Few /hpf (<5) Urine Bacteria None seen /hpf (None Seen) Urine Mucus Few (None Seen) Urine Glucose Normal mg/dL (Normal) Microbiology Microbiology Date/Time Source Procedure Growth Status 07/30/25 21:10 Nose MRSA Screen - Final Complete Labs and/or images reviewed: Labs reviewed by me, Image(s) reviewed by me Assessment/Plan Assessment/Plan acuteGastritis, sp EGD 08/03/25 PUD, ruled out Acute on chronic constipation possible Intractable abdominal pain, due to above likely. Intractable nausea P.o. intolerance Punctate nonobstructive bilateral nephrolithiasis Thrombocytosis Developmental delay Overweight Plan discussed with: Patient ELSA RAMOS MD Aug 09, 2025 13:33
== END 2025-08-05 14:00 | disposition home or self-care (01) | DRG 241 ==
LOC: ER 08:34 → OVERFLOW 13:29 → EAST 17:30
PROVIDERS: ADMIT Student in an Organized Health Care Education/Training Program; ATTEND Student in an Organized Health Care Education/Training Program
PROC: 0DB68ZX Excision of Stomach, Via Natural or Artificial Opening Endoscopic, Diagnostic (ICD-10-PCS; 2025-08-03)
PROC: 0DB98ZX Excision of Duodenum, Via Natural or Artificial Opening Endoscopic, Diagnostic (ICD-10-PCS; principal; 2025-08-03 14:26)
DX: K29.00 Acute gastritis without bleeding (principal); K31.3 Pylorospasm, not elsewhere classified; N20.0 Calculus of kidney; D75.839 Thrombocytosis, unspecified; K59.00 Constipation, unspecified; E66.3 Overweight; R62.50 Unspecified lack of expected normal physiological development in childhood; K52.9 Noninfective gastroenteritis and colitis, unspecified; Z87.442 Personal history of urinary calculi; Z68.29 Body mass index [BMI] 29.0-29.9, adult; Z83.3 Family history of diabetes mellitus; Z82.5 Family history of asthma and other chronic lower respiratory diseases
CPT/HCPCS: 36415; 71045; 74176; 76705; 80048; 80053; 80061; 80076; 80307; 81001; 82140; 82270; 82306; 82607; 83036; 83605; 83690; 83735; 84100; 84443; 84702; 85025; 85048; 85610; 85730; 86850; 86900; 86901; 87081; 96361; 96374; G0378; J2250; J2405; J2470; J2704

== ENCOUNTER 2025-08-06 08:40 | Inpatient (IN) | payer MEDICAID ==
[~2025-08-06] VITALS: Ht 157.5 cm; Wt 82.7 kg
[~2025-08-06 08:40] MED LIST changes: +DOCU-265 PO; -IBUP-1455 PO; +PANT40TA2 PO; +SUCR1SUS25 PO
[2025-08-06] MEDS ORDERED: LORazepam 2MG/ML-1ML VIAL IV ONE (10:00)
--- NOTE | 2025-08-06 10:08 | ED.PDOC ---
GI ASSESSMENT HPI Comments 70-year-old female presents here with abdominal pain. Tarik is at bedside who states the patient was just discharged from the hospital yesterday for same complaint. nh states she has been giving the Protonix and docusate as prescribed however it has not helped. Tarik states the patient was up all night with abdominal pain. She does not have any vomiting or diarrhea but she is writhing in pain. Patient does not endorse burning with urination. No dysuria. Patient is a special needs patient. Tarik states she has lost over 100 lb the last 1 year., does not know what helps the pain. Denies any fever or chills. Chief Complaint: Abdominal Pain Time Seen by MD: 08:54 Primary Care Provider: [facility] Allergies: Coded Allergies: NO KNOWN ALLERGIES (Unverified , 10/31/15) Home Meds Active Scripts Docusate Sodium (Docusate Sodium) 100 Mg Cap, 100 MG PO BID for 30 Days, #60 CAP 0 Refills Prov:LAMONT POLANCO MD 08/05/25 Pantoprazole Sodium Sesquihydr (Protonix) 40 Mg Tab, 40 MG PO DAILY for 30 Days, #30 TAB 0 Refills Prov:LAMONT POLANCO MD 08/05/25 Sucralfate (Sucralfate) 1 Gm/10 Ml Jacqueline, 1 GM PO ACHS for 30 Days, #30 GM 1 Refill Prov:LAMONT POLANCO MD 08/05/25 Polyethylene Glycol (Miralax) 17 Gm/Scoop Pow, 17 GM PO DAILY for 10 Days, #10 POW 0 Refills Prov:LAMONT POLANCO MD 08/05/25 Acetaminophen (Acetaminophen) 325 Mg Tab, 650 MG PO Q4HP PRN for 5 Days, #50 TAB Prov:CALE CONDE RESIDENT 10/01/24 Duloxetine Hcl (Cymbalta) 20 Mg Cap, 20 MG PO DAILY for 30 Days, #30 CAP Prov:CALE CONDE RESIDENT 10/01/24 Reported Medications Tramadol Hcl (Tramadol Hcl) 50 Mg Tab, 50 MG PO BIDPRN PRN for PAIN SCALE 1 THRU 6, MG 10/01/24 Tamsulosin Hcl (Tamsulosin Hcl) 0.4 Mg Cap, 0.4 MG PO DAILY for 30 Days, MG 10/01/24 Cyclobenzaprine Hcl (Cyclobenzaprine Hcl) 10 Mg Tab, 10 MG PO DAILYP for 30 Days, MG 10/01/24 Discontinued Reported Medications Lidocaine HCl (Mouth-Throat) (Lidocaine HCl Viscous) 2 % Jaye, 2 % MT Q3HPRN PRN for PAIN SCALE 1 THRU 6, ML 07/30/25 Omeprazole (Gnp Omeprazole) 20 Mg Tab, 40 MG PO DAILY, TAB 07/30/25 Ibuprofen Micronized (Ibuprofen) 800 Mg Tab, 800 MG PO TIDP, TAB 10/01/24 Mode of Arrival: Ambulatory Past Medical History PAST MEDICAL HISTORY: Kidney Stones, UTI'S 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 Family History Family History: Reviewed,noncontributory to illness Social History Smoker: Non-Smoker Alcohol: Denies ETOH Use Drugs: Denies Drug Use Lives In: Home All Other Systems: Reviewed and Negative Physical Exam Exam Comments Writhing in pain, tearful General Appearance: Severe Distress HEENT: Normal ENT Inspection, Pharynx Normal, TMs Normal Neck: Full Range of Motion, Non-Tender, Normal, Normal Inspection Respiratory: Chest Non-Tender, Lungs Clear, No Accessory Muscle Use, No Respiratory Distress, Normal Breath Sounds Cardiovascular: No Edema, No JVD, Normal Peripheral Pulses, Regular Rate/Rhythm Breast Exam: Deferred Gastrointestinal: Tenderness (Diffuse abdominal tenderness to palpation, bilateral CVA tenderness) Genitalia: Deferred Pelvic: Deferred Rectal: Deferred Extremities: No calf tenderness, Normal capillary refill, Normal inspection, Normal range of motion, Non-tender, No pedal edema Musculoskeletal : Apperance: Normal Neurologic: Alert, No Motor Deficits, Normal Affect, Normal Mood, No Sensory Deficits, Other (Patient had normal mental baseline) Cerebellar Function: Normal Reflexes: Normal Skin: Dry, Normal Color, Warm Lymphatic: No Adenopathy Was a procedure done? Was a procedure done?: No GI differential Dx Differential Diagnosis: Bowel Obstruction, Constipation, Ectopic , Eso phagitis, Gastritis/PUD, Gastroenteritis, Inflammatory BD, UTI, Diabetes/ DKA, , Impaction, Malnutrition, Kidney Stone (xz) X-Ray, Labs, Meds, VS Vital Signs Date Time Temp Pulse Resp B/P (MAP) Pulse Ox O2 Delivery O2 Flow Rate FiO2 08/06/25 11:26 98.3 81 18 126/90 (102) 97 98.3 08/06/25 09:08 96.9 103 16 130/83 (99) 99 96.9 08/06/25 08:49 98.3 111 18 131/86 99 98.3 Lab Test 08/06/25 10:31 08/06/25 10:16 Range/Units Urine Test Negative Negative White Blood Count 6.9 4.4-10.8 10^3/uL Red Blood Count 4.05 4.0-5.20 10^6/uL Hemoglobin 12.9 12.2-16.2 g/dL Hematocrit 38.5 36.0-46.0 % Mean Corpuscular Volume 94.9 80.0-100.0 fL Mean Corpuscular Hemoglobin 31.8 28.0-32.0 pg Mean Corpuscular Hemoglobin Concent 33.5 32.0-36.0 g/dL Red Cell Distribution Width 14.2 11.8-14.3 % Platelet Count 450 140-450 10^3/uL Mean Platelet Volume 9.5 6.9-10.8 fL Neutrophils (%) (Auto) 74.9 37.0-80.0 % Lymphocytes (%) (Auto) 15.7 10.0-50.0 % Monocytes (%) (Auto) 8.4 0.0-12.0 % Eosinophils (%) (Auto) 0.5 0.0-7.0 % Basophils (%) (Auto) 0.5 0.0-2.0 % Neutrophils # (Auto) 5.2 1.6-8.6 10 ^3/uL Lymphocytes # (Auto) 1.1 0.4-5.4 10 ^3/uL Monocytes # (Auto) 0.6 0-1.3 10 ^3/uL Eosinophils # (Auto) 0 0-0.8 10 ^3/uL Basophils # (Auto) 0 0-0.2 10 ^3/uL Nucleated Red Blood Cells 0.1 % Sodium Level 142 136-145 mmol/L Potassium Level 3.5 3.5-5.1 mmol/L Chloride Level 107 98-107 mmol/L Carbon Dioxide Level 22 20-31 mmol/L Anion Gap 13 5-15 Blood Urea Nitrogen < 5 L 9-23 mg/dL Creatinine 0.86 0.550-1.02 mg/dL Glomerular Filtration Rate Calc 93 >90 mL/min BUN/Creatinine Ratio 5.8 L 10.0-20.0 Serum Glucose 101 74-106 mg/dL Calcium Level 9.6 8.7-10.4 mg/dL Total Bilirubin 1.1 H 0.2-1.0 mg/dL Aspartate Amino Transferase (AST) 21 13-40 U/L Alanine Aminotransferase (ALT) 20 7-40 U/L Alkaline Phosphatase 47 46-116 U/L Total Protein 7.3 5.7-8.2 g/dL Albumin 4.3 3.2-4.8 g/dL Lipase 29 12-53 U/L Current Medications Medications (Trade) Dose Ordered Sig/Martha Route Start Time Stop Time Status Last Admin Phenazopyridine HCl (Pyridium Tablet) 200 mg ONCE ONCE PO 08/06/25 10:00 08/06/25 10:01 DC 08/06/25 10:59 Lorazepam (Ativan Tablet) 0.5 mg ONCE ONCE PO 08/06/25 10:30 08/06/25 10:31 DC 08/06/25 10:59 30-year-old female with history of developmental delay presents here with abdominal pain. On my examination she is tearful tender diffusely throughout my exam. I have reviewed her records from her last visit., she did have an EGD done which was essentially normal. She had a CT scan an ultrasound of the gallbladder also done both of which were unremarkable. At this time the exact cause of her abdominal pain is unclear. She was just discharged from the hospital yesterday. However [facility] states she has not sleep at all last night and pain has been significant. At this time I have ordered a CBC BMP, urine analysis. I have also ordered Pyridium and Ativan for anxiety. CBC CMP have returned which are largely unremarkable except for mild elevation in bilirubin at 1.1. Urine is negative for infection. Patient is not . At this time the exact cause of her symptoms is unclear. However patient is in significant discomfort. At this time hospitalist team has been consulted for admission. Time of 1ST Reevaluation: 10:08 Reevaluation 1ST: Unchanged Patient Education/Counseling: Diagnosis, Treatment Family Education/Counseling: Diagnosis, Treatment SEPSIS Sepsis Screen Date sepsis recognized/suspect: Aug 06, 2025 Time Sepsis recognized/suspect: 919 Recent Procedure: Yes On Antibiotic Therapy: No Respiratory Rate >20: No Heart Rate >90: Yes Temp<36 C (96.8 F) or >38.3 C: No SBP <90 or MAP <65 mmHG: No New Acute Mental Status Change: No Is the patient on CPAP, BIPAP,: No Vital Signs Date Time Temp Pulse Resp B/P (MAP) Pulse Ox O2 Delivery O2 Flow Rate FiO2 08/06/25 11:26 98.3 81 18 126/90 (102) 97 98.3 08/06/25 09:08 96.9 103 16 130/83 (99) 99 96.9 08/06/25 08:49 98.3 111 18 131/86 99 98.3 Laboratory Tests Test 08/06/25 10:16 White Blood Count 6.9 10^3/uL (4.4-10.8) Medications Medications Dose Ordered Sig/Martha Route Start Time Stop Time Status Last Admin Dose Admin Lorazepam 0.5 mg ONCE ONCE PO 08/06/25 10:30 08/06/25 10:31 DC 08/06/25 10:59 Phenazopyridine HCl 200 mg ONCE ONCE PO 08/06/25 10:00 08/06/25 10:01 DC 08/06/25 10:59 Departure 1 Departure Time of Disposition: 11:56 Impression: Primary Impression: Intractable abdominal pain Disposition: ADMITTED INPATIENT Condition: Fair Critical Care Note Critical Care Time?: No Stability Stability form required: No Heart Score Heart Score: Heart Score Response (Comments) Value History N/A 0 EKG N/A 0 Age N/A 0 Risk Factors N/A 0 Troponin N/A 0 Total 0 GIOVANNI BARRETO MD Aug 06, 2025 10:08
[2025-08-06 10:37] LABS: Hematocrit 38.5 % (36.0-46.0); Hemoglobin 12.9 g/dL (12.2-16.2); Mean Corpuscular Hemoglobin 31.8 pg (28.0-32.0); Mean Corpuscular Volume 94.9 fL (80.0-100.0); Nucleated Red Blood Cells % 0.1 %
[2025-08-06 10:51] LABS: Alanine Aminotransferase 20 U/L (7-40); Albumin 4.3 g/dL (3.2-4.8); Alkaline Phosphatase 47 U/L (46-116); Anion Gap 13 (5-15); BUN/Creatinine Ratio 5.8 (10.0-20.0); Blood Urea Nitrogen < 5 mg/dL (9-23); Calcium 9.6 mg/dL (8.7-10.4); Carbon Dioxide 22 mmol/L (20-31); Chloride 107 mmol/L (98-107); Glucose 101 mg/dL (74-106); Lipase 29 U/L (12-53); Potassium 3.5 mmol/L (3.5-5.1); Sodium 142 mmol/L (136-145); Total Protein 7.3 g/dL (5.7-8.2)
[2025-08-06 10:52] LABS: Bilirubin, Total 1.1 mg/dL (0.2-1.0)
[2025-08-06] MEDS: PHENAZOPYRIDINE HCL 100 MG TAB PO ONE (10:59)
[2025-08-06] MEDS: LORazepam 0.5 MG TAB PO ONE (10:59)
--- NOTE | 2025-08-06 12:18 | DVHHP2 ---
Review of Systems Allergies: Coded Allergies: NO KNOWN ALLERGIES (Unverified , 10/31/15) Exam Vital Signs Vital Signs Date Time Temp Pulse Resp B/P (MAP) Pulse Ox O2 Delivery O2 Flow Rate FiO2 08/06/25 11:26 98.3 81 18 126/90 (102) 97 98.3 Labs/Xrays Labs Test 08/06/25 10:31 08/06/25 10:16 Range/Units Urine Test Negative Negative White Blood Count 6.9 4.4-10.8 10^3/uL Red Blood Count 4.05 4.0-5.20 10^6/uL Hemoglobin 12.9 12.2-16.2 g/dL Hematocrit 38.5 36.0-46.0 % Mean Corpuscular Volume 94.9 80.0-100.0 fL Mean Corpuscular Hemoglobin 31.8 28.0-32.0 pg Mean Corpuscular Hemoglobin Concent 33.5 32.0-36.0 g/dL Red Cell Distribution Width 14.2 11.8-14.3 % Platelet Count 450 140-450 10^3/uL Mean Platelet Volume 9.5 6.9-10.8 fL Neutrophils (%) (Auto) 74.9 37.0-80.0 % Lymphocytes (%) (Auto) 15.7 10.0-50.0 % Monocytes (%) (Auto) 8.4 0.0-12.0 % Eosinophils (%) (Auto) 0.5 0.0-7.0 % Basophils (%) (Auto) 0.5 0.0-2.0 % Neutrophils # (Auto) 5.2 1.6-8.6 10 ^3/uL Lymphocytes # (Auto) 1.1 0.4-5.4 10 ^3/uL Monocytes # (Auto) 0.6 0-1.3 10 ^3/uL Eosinophils # (Auto) 0 0-0.8 10 ^3/uL Basophils # (Auto) 0 0-0.2 10 ^3/uL Nucleated Red Blood Cells 0.1 % Sodium Level 142 136-145 mmol/L Potassium Level 3.5 3.5-5.1 mmol/L Chloride Level 107 98-107 mmol/L Carbon Dioxide Level 22 20-31 mmol/L Anion Gap 13 5-15 Blood Urea Nitrogen < 5 L 9-23 mg/dL Creatinine 0.86 0.550-1.02 mg/dL Glomerular Filtration Rate Calc 93 >90 mL/min BUN/Creatinine Ratio 5.8 L 10.0-20.0 Serum Glucose 101 74-106 mg/dL Calcium Level 9.6 8.7-10.4 mg/dL Total Bilirubin 1.1 H 0.2-1.0 mg/dL Aspartate Amino Transferase (AST) 21 13-40 U/L Alanine Aminotransferase (ALT) 20 7-40 U/L Alkaline Phosphatase 47 46-116 U/L Total Protein 7.3 5.7-8.2 g/dL Albumin 4.3 3.2-4.8 g/dL Lipase 29 12-53 U/L SEPSIS Sepsis Screen Date sepsis recognized/suspect: Aug 06, 2025 Time Sepsis recognized/suspect: 919 Recent Procedure: Yes On Antibiotic Therapy: No Respiratory Rate >20: No Heart Rate >90: Yes Temp<36 C (96.8 F) or >38.3 C: No SBP <90 or MAP <65 mmHG: No New Acute Mental Status Change: No Is the patient on CPAP, BIPAP,: No Vital Signs Date Time Temp Pulse Resp B/P (MAP) Pulse Ox O2 Delivery O2 Flow Rate FiO2 08/06/25 11:26 98.3 81 18 126/90 (102) 97 98.3 08/06/25 09:08 96.9 103 16 130/83 (99) 99 96.9 08/06/25 08:49 98.3 111 18 131/86 99 98.3 Laboratory Tests Test 08/06/25 10:16 White Blood Count 6.9 10^3/uL (4.4-10.8) Medications Medications Dose Ordered Sig/Martha Route Start Time Stop Time Status Last Admin Dose Admin Lorazepam 0.5 mg ONCE ONCE PO 08/06/25 10:30 08/06/25 10:31 DC 08/06/25 10:59 0.5 MG Phenazopyridine HCl 200 mg ONCE ONCE PO 08/06/25 10:00 08/06/25 10:01 DC 08/06/25 10:59 200 MG DENNISE GUY DNP Aug 06, 2025 12:17
--- NOTE | 2025-08-06 12:22 | DVHHP2 ---
History of Present Illness Reason for Visit: abd pain History of Present Illness 30-year-old female with past medical history of gastritis (recently diagnosed by EGD on August 03, 2025), thrombocytosis, kidney stones, recurrent UTIs, and mental delay presents with ongoing abdominal pain following recent hospitalization. Patient was discharged from [facility] on August 04, 2025 after being evaluated for abdominal pain, nausea, and vomiting. During that hospitalization, she underwent an EGD which revealed gastritis. She was prescribed Carafate, Protonix, and MiraLAX for constipation, and instructed to follow up with GI as an outpatient. Additional diagnoses at that time included intractable abdominal pain, intractable nausea, and non-obstructive bilateral kidney stones likely related to post-cystosis findings. Patients grandmother, who is at bedside, states the patient has had persistent abdominal pain since discharge. to the point pt was crying, Patient reports that the pain worsens with eating and is constant. She states she vomited once today but denies blood in the vomit, diarrhea, fever, chest pain, shortness of breath, or pelvic pressure. On evaluation, labs including CBC and CMP were unremarkable. UA was negative. Abdominal ultrasound from August 04, [address] scan from July 30, 2025 showed no acute findings. Given her continued symptoms, the patient will be admitted for further management of intractable abdominal pain. Past Medical History See HPI above Past Surgical History See HPI above Family History Reviewed, non-contributory to the management of this case. Past Social History The patient lives at home, denies smoking, alcohol or illicit drugs abuse. Review of Systems Constitutional: No: Fever, Chills, Sweats, Weakness, Malaise, Other Eyes: No: Pain, Vision change, Conjunctivae inflammation, Eyelid inflammation, Other, Redness ENT: No: Ear pain, Ear discharge, Nose pain, Nose discharge, Nose congestion, Mouth pain, Mouth swelling, Throat pain, Throat swelling, Other Respiratory: No: Cough, Dry, Shortness of breath, SOB with excertion, Wheezing, Hemoptysis, Pleuritic Pain, Sputum, Wheezing, Other Cardiovascular: No: Chest Pain, Palpitations, Orthopnea, Paroxysmal Noc. Dyspnea, Edema, Lt Headedness, Other Gastrointestinal: Nausea, Abdominal Pain, Diarrhea; No: Vomiting, Constipation, Melena, Hematochezia, Other Genitourinary: No Dysuria, No Frequency, No Incontinence, No Hematuria, No Retention, No Other Musculoskeletal: No: other, neck pain, shoulder pain, arm pain, back pain, hand pain, leg pain, foot pain Skin: No: Rash, Lesions, Jaundice, Bruising, Other Neurological: No: Weakness, Numbness, Incoordination, Change in speech, Confusion, Seizures, Other Allergies: Coded Allergies: NO KNOWN ALLERGIES (Unverified , 10/31/15) Exam Vital Signs Vital Signs Date Time Temp Pulse Resp B/P (MAP) Pulse Ox O2 Delivery O2 Flow Rate FiO2 08/06/25 11:26 98.3 81 18 126/90 (102) 97 98.3 General Appearance: Alert, Oriented X3, Cooperative, No acute distress HEENT: Atraumatic, PERRLA, EOMI, Mucous membr. moist/pink Respiratory: Clear to auscultation, Normal air movement Cardiovascular: Regular rate, Normal S1, Normal S2, No murmurs Abdominal: Normal bowel sounds, Soft, No hepatospenomegaly, No masses, Other (no guarding no rebound tenderness) Extremities: No clubbing, No cyanosis, No edema, Normal pulses, No tenderness/swelling Skin: No rashes, No breakdown Neuro: Normal gait, Normal speech, Strength at 5/5 X4 ext, Normal tone, Sensat ion intact, Cranial nerves 3-12 NL Psych/Mental Status: Mental status NL, Mood NL Labs/Xrays I reviewed labs, imaging CT scan abdomen pelvis, EKG and all diagnostic studies on this patient from ED records and the medical chart Labs Test 08/06/25 10:31 08/06/25 10:16 Range/Units Urine Test Negative Negative White Blood Count 6.9 4.4-10.8 10^3/uL Red Blood Count 4.05 4.0-5.20 10^6/uL Hemoglobin 12.9 12.2-16.2 g/dL Hematocrit 38.5 36.0-46.0 % Mean Corpuscular Volume 94.9 80.0-100.0 fL Mean Corpuscular Hemoglobin 31.8 28.0-32.0 pg Mean Corpuscular Hemoglobin Concent 33.5 32.0-36.0 g/dL Red Cell Distribution Width 14.2 11.8-14.3 % Platelet Count 450 140-450 10^3/uL Mean Platelet Volume 9.5 6.9-10.8 fL Neutrophils (%) (Auto) 74.9 37.0-80.0 % Lymphocytes (%) (Auto) 15.7 10.0-50.0 % Monocytes (%) (Auto) 8.4 0.0-12.0 % Eosinophils (%) (Auto) 0.5 0.0-7.0 % Basophils (%) (Auto) 0.5 0.0-2.0 % Neutrophils # (Auto) 5.2 1.6-8.6 10 ^3/uL Lymphocytes # (Auto) 1.1 0.4-5.4 10 ^3/uL Monocytes # (Auto) 0.6 0-1.3 10 ^3/uL Eosinophils # (Auto) 0 0-0.8 10 ^3/uL Basophils # (Auto) 0 0-0.2 10 ^3/uL Nucleated Red Blood Cells 0.1 % Sodium Level 142 136-145 mmol/L Potassium Level 3.5 3.5-5.1 mmol/L Chloride Level 107 98-107 mmol/L Carbon Dioxide Level 22 20-31 mmol/L Anion Gap 13 5-15 Blood Urea Nitrogen < 5 L 9-23 mg/dL Creatinine 0.86 0.550-1.02 mg/dL Glomerular Filtration Rate Calc 93 >90 mL/min BUN/Creatinine Ratio 5.8 L 10.0-20.0 Serum Glucose 101 74-106 mg/dL Calcium Level 9.6 8.7-10.4 mg/dL Total Bilirubin 1.1 H 0.2-1.0 mg/dL Aspartate Amino Transferase (AST) 21 13-40 U/L Alanine Aminotransferase (ALT) 20 7-40 U/L Alkaline Phosphatase 47 46-116 U/L Total Protein 7.3 5.7-8.2 g/dL Albumin 4.3 3.2-4.8 g/dL Lipase 29 12-53 U/L SEPSIS Sepsis Screen Date sepsis recognized/suspect: Aug 06, 2025 Time Sepsis recognized/suspect: 919 Recent Procedure: Yes On Antibiotic Therapy: No Respiratory Rate >20: No Heart Rate >90: Yes Temp<36 C (96.8 F) or >38.3 C: No SBP <90 or MAP <65 mmHG: No New Acute Mental Status Change: No Is the patient on CPAP, BIPAP,: No Vital Signs Date Time Temp Pulse Resp B/P (MAP) Pulse Ox O2 Delivery O2 Flow Rate FiO2 08/06/25 11:26 98.3 81 18 126/90 (102) 97 98.3 08/06/25 09:08 96.9 103 16 130/83 (99) 99 96.9 08/06/25 08:49 98.3 111 18 131/86 99 98.3 Laboratory Tests Test 08/06/25 10:16 White Blood Count 6.9 10^3/uL (4.4-10.8) Medications Medications Dose Ordered Sig/Martha Route Start Time Stop Time Status Last Admin Dose Admin Lorazepam 0.5 mg ONCE ONCE PO 08/06/25 10:30 08/06/25 10:31 DC 08/06/25 10:59 0.5 MG Phenazopyridine HCl 200 mg ONCE ONCE PO 08/06/25 10:00 08/06/25 10:01 DC 08/06/25 10:59 200 MG Assessment/Plan Assessment/Plan 30-year-old female with history of gastritis and mental delay admitted for evaluation and management of intractable abdominal pain following recent hospitalization and EGD-confirmed gastritis. acute Intractable abdominal pain reviewed ct scan negative reviewed us negative Continue Protonix and Carafate as ordered ordered bentyl prn Monitor pain and GI symptoms GI consult if pain persists despite medical therapy Encourage small, bland meals as tolerated Monitor for signs of obstruction, bleeding, or infection current urine negative Recent gastritis (EGD on 08/03/25) Continue PPI (Protonix) and Carafate Outpatient GI follow-up recommended acute Nausea and vomiting ordered Zofran as needed Monitor oral intake and hydration Ensure bowel movements occur regularly continue MiraLAX ordered ivf for now History of bilateral non-obstructive kidney stones Encourage PO hydration Monitor for hematuria or flank pain No signs of acute obstruction on imaging History of dermoid cystosis (resolved) No acute management needed currently Monitor pelvic symptoms if any develop Mental delay Patient accompanied by caregiver Ensure understanding and cooperation with treatment plan chronic problems Recurrent UTIs Mental delay Gastritis Constipation History of kidney stones FEN / PPx Fluids: IV fluids Electrolytes: Monitor CMP daily Nutrition: regular DVT Prophylaxis: SCDs while inpatient GI Prophylaxis: Protonix Disposition Admit to medical floor for management of intractable abdominal pain. Plan discussed with: Patient Date of Service: Aug 06, 2025 Billing Provider: DENNISE GUY DNP Common Visit Codes: [id number] INP/OBS CARE (HIGH) DENNISE GUY DNP Aug 06, 2025 12:22
[2025-08-06] MEDS ORDERED: NITROGLYCERIN 0.4 MG SL TAB SL PRN (12:30)
[2025-08-06] MEDS: PANTOPRAZOLE 40 MG/10 ML VIAL INJ IV ONE (14:01)
[2025-08-06] MEDS: SODIUM CHLORIDE 0.9% 1,000 ML IV SCH (14:58)
[2025-08-06] MEDS: SUCRALFATE 1 GM/10 ML ORAL SUSP PO SCH (17:28)
[2025-08-06] MEDS: DICYCLOMINE HCL 10 MG CAP PO SCH (18:23)
[2025-08-06] MEDS: TAMSULOSIN HYDROCHLORIDE 0.4 MG CAP PO SCH (18:37)
[2025-08-06 21:37] VITALS: BP 100/62; PULSE 65; RESP 18; TEMP 98.7; O2SAT 100
[2025-08-06] MEDS ORDERED: DOCUSATE SOD 100 MG CAP PO SCH (22:00)
[2025-08-06] MEDS: MELATONIN 5 MG TAB PO SCH (23:08)
[2025-08-06] MEDS: ONDANSETRON HCL 4 MG/2 ML VIAL IV PRN (23:08)
[2025-08-07 01:18] VITALS: BP 109/62; PULSE 80; RESP 16; TEMP 97.8; O2SAT 98
[2025-08-07 03:20] LABS: Hematocrit 34.9 % (36.0-46.0); Hemoglobin 11.7 g/dL (12.2-16.2); Mean Corpuscular Hemoglobin 32.3 pg (28.0-32.0); Mean Corpuscular Volume 96.3 fL (80.0-100.0); Nucleated Red Blood Cells % 0.1 %
[2025-08-07 03:38] LABS: Alanine Aminotransferase 19 U/L (7-40); Albumin 3.8 g/dL (3.2-4.8); Anion Gap 13 (5-15); Calcium 9.3 mg/dL (8.7-10.4); Carbon Dioxide 24 mmol/L (20-31); Glucose 96 mg/dL (74-106); Sodium 144 mmol/L (136-145); Total Protein 6.5 g/dL (5.7-8.2)
[2025-08-07 03:39] LABS: Bilirubin, Total 0.8 mg/dL (0.2-1.0)
[2025-08-07 03:41] LABS: Alkaline Phosphatase 44 U/L (46-116); BUN/Creatinine Ratio 6.2 (10.0-20.0); Blood Urea Nitrogen < 5 mg/dL (9-23); Chloride 107 mmol/L (98-107); Potassium 3.0 mmol/L (3.5-5.1)
[2025-08-07 04:45] LABS: Urine Budding Yeast OCCASIONAL /hpf (None Seen); Urine Protein, UAD TRACE (Negative)
[2025-08-07] MEDS: HYDROcodone-ACET 5/325MG TAB PO PRN (04:59)
[2025-08-07 09:00] VITALS: BP 122/66; PULSE 83; RESP 18; TEMP 98; O2SAT 99
[2025-08-07] MEDS: PANTOPRAZOLE 40 MG/10 ML VIAL INJ IV SCH ×2 (09:33→21:20)
[2025-08-07] MEDS: POLYETHYLENE GLYCOL 17 GM PWDR PO SCH (09:33)
[2025-08-07] MEDS: LORazepam 0.5 MG TAB PO PRN (12:39)
[2025-08-07 13:00] VITALS: BP 114/76; PULSE 78; RESP 20; TEMP 98; O2SAT 97
[2025-08-07 13:09] VITALS: BP 110/74; PULSE 77; RESP 18; TEMP 97.5; O2SAT 98
[2025-08-07] MEDS: POTASSIUM EFFERVESENT TAB 25 MEQ PO ONE (16:10)
[2025-08-07 16:37] VITALS: BP_SYST 106; BP_SYST 117; BP_DIAS 70; BP_DIAS 74; PULSE 79; PULSE 81; RESP 18; RESP 20; TEMP 96.3; TEMP 96.7; O2SAT 96; O2SAT 98
--- NOTE | 2025-08-07 16:47 | DVHPN2 ---
Subjective Patient denies any complaints currently mom is at bedside all the questions were answered I explained to her that she has a gastritis and CT to be on Protonix and Carafate. Changes from previous H/P or p: No Changes Eyes: No Pain, No Vision change, No Conjunctivae inflammation, No Eyelid inflammation, No Other, No Redness ENT: No Ear pain, No Ear discharge, No Nose pain, No Nose discharge, No Nose congestion, No Mouth pain, No Mouth swelling, No Throat pain, No Throat swelling, No Other Cardiovascular: No Chest Pain, No Palpitations, No Orthopnea, No Paroxysmal Noc. Dyspnea, No Edema, No Lt Headedness, No Other Respiratory: No Cough, No Dry, No Shortness of breath, No SOB with excertion, No Wheezing, No Hemoptysis, No Pleuritic Pain, No Sputum, No Other Gastrointestinal: Nausea; No Vomiting; Abdominal Pain, Diarrhea; No Constipation, No Melena, No Hematochezia, No Other Genitourinary: No Dysuria, No Frequency, No Incontinence, No Hematuria, No Retention, No Other Musculoskeletal: No other, No neck pain, No shoulder pain, No arm pain, No back pain, No hand pain, No leg pain, No foot pain Skin: No Rash, No Lesions, No Jaundice, No Bruising, No Other Objective Vitals Vital Signs Date Time Temp Pulse Resp B/P (MAP) Pulse Ox O2 Delivery O2 Flow Rate FiO2 08/07/25 16:37 96.7 81 20 117/74 (88) 96 96.7 08/07/25 07:40 Room Air* 0 21 Intake/Output Intake and Output 08/07/25 07:00 Intake Total 520 ml Output Total 200 ml Balance 320 ml Intake Oral 120 ml IV Total 400 ml Output Urine Total 200 ml # Voids 5 Exam HEENT pupils are reactive Neck is supple CV is S1-S2 regular rate and rhythm Respiratory diminished breath sounds bases GI positive bowel sound Extremity no edema 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 Medications Current Medications Medications Dose Ordered Sig/Martha Route Start Time Stop Time Status Last Admin Dose Admin Cyclobenzaprine HCl 10 mg DAILYP@2200 PRN PO 08/07/25 10:00 Sucralfate 1 gm ACHS PO 08/06/25 17:00 08/07/25 11:57 1 GM Tamsulosin HCl 0.4 mg QPM PO 08/06/25 18:00 08/06/25 18:37 0.4 MG Patient Own Medication 20 mg DAILY PO 08/07/25 10:00 Polyethylene Glycol 17 gm DAILY PO 08/07/25 10:00 08/07/25 09:33 17 GM Sodium Chloride 1,000 ml @ 100 mls/hr Q10H IV 08/06/25 12:30 08/06/25 14:58 100 MLS/HR Ondansetron HCl 4 mg Q4HP PRN IV 08/06/25 12:30 08/07/25 05:00 4 MG Docusate Sodium 100 mg BIDPRN PRN PO 08/06/25 12:30 Nitroglycerin 0.4 mg Q5MINP PRN SL 08/06/25 12:30 Dicyclomine HCl 20 mg QID PO 08/06/25 18:00 08/20/25 17:59 08/07/25 12:39 20 MG Acetaminophen/ Hydrocodone Bitart 1 tab Q4HPRN PRN PO 08/07/25 01:45 08/07/25 12:05 1 TAB Lorazepam 0.5 mg Q8HP PRN PO 08/07/25 12:15 08/07/25 12:39 0.5 MG Pantoprazole Sodium 40 mg BID IV 08/07/25 22:00 Melatonin 5 mg HS PRN PO 08/07/25 15:30 Laboratory Results Laboratory Tests 08/07/25 02:48 Chemistry Test 08/07/25 02:48 Albumin 3.8 g/dL (3.2-4.8) Calcium Level 9.3 mg/dL (8.7-10.4) Total Protein 6.5 g/dL (5.7-8.2) LFT Test 08/07/25 02:48 Alanine Aminotransferase (ALT) 19 U/L (7-40) Alkaline Phosphatase 44 U/L (46-116) L Aspartate Amino Transferase (AST) 20 U/L (13-40) Total Bilirubin 0.8 mg/dL (0.2-1.0) Urinalysis Test 08/06/25 10:31 08/07/25 03:06 Urine Test Negative (Negative) Urine Color Dark-yellow (Yellow) Urine Clarity Turbid (Clear) H Urine pH 6.0 (5.0-9.0) Urine Specific [place] 1.021 (1.001-1.035) Urine Protein Trace (Negative) H Urine Ketones Negative (Negative) Urine Blood Negative /uL (Negative) Urine Nitrite 1+ (Negative) H Urine Bilirubin 1+ (Negative) H Urine Urobilinogen 3 mg/dL (Negative) H Urine Leukocyte Esterase Negative /uL (Negative) Urine RBC 5 /hpf (0 - 4) Urine Microscopic WBC 4 /HPF (0-5) Urine Squamous Epithelial Cells Mod /hpf (<5) Urine Calcium Oxalate Crystals Few (None Seen) Urine Bacteria Few /hpf (None Seen) H Urine Mucus Few (None Seen) Urine Yeast (Budding) Occasional /hpf (None Urine Glucose Normal mg/dL (Normal) Assessment/Plan Assessment/Plan 30-year-old female with a known history of mental delay, known history of gastritis diagnosed previously by EGD on August 03 presented to the hospital with the abdominal pain found to have 1. Intractable abdominal pain 2. Nausea and vomiting 3. Gastritis 4. Bilateral nonobstructive kidney stones -continue Protonix and Carafate, diet as tolerated, discharge plan. Plan discussed with: Patient My Orders Orders - ALICIA RIVAS MD Procedure Category Date Status Time Lorazepam Tablet PHA 08/07/25 In Process (Ativan Tablet) 12:15 Pantoprazole PHA 08/07/25 In Process (Protonix) 22:00 Melatonin (Melatonin) PHA 08/07/25 In Process 15:30 * Dietary Consult CONS 08/07/25 Transmitted 15:22 * [facility] [employer] Supervisor CONS 08/07/25 Transmitted 15:22 Soft Diet DIET 08/07/25 Transmitted Dinner Problem List: (1) Nausea and vomiting Date of Service: Aug 07, 2025 Billing Provider: ALICIA RIVAS MD Common Visit Codes: [id number] INP/OBS CARE(HIGH) ALICIA RIVAS MD Aug 07, 2025 16:47
[2025-08-07 21:00] VITALS: BP 103/65; PULSE 94; RESP 17; TEMP 98.2; O2SAT 98
[2025-08-07] MEDS: MELATONIN 5 MG TAB PO PRN (21:20)
[2025-08-08 01:00] VITALS: BP 113/81; PULSE 99; RESP 18; TEMP 98; O2SAT 98
[2025-08-08 09:00] VITALS: BP 128/78; PULSE 90; RESP 20; TEMP 97.7; O2SAT 97
[2025-08-08] MEDS: DOCUSATE SOD 100 MG CAP PO PRN (10:04)
[2025-08-08 13:00] VITALS: BP 107/73; PULSE 86; RESP 16; TEMP 97.8; O2SAT 98
--- NOTE | 2025-08-08 17:03 | DVHPN2 ---
Subjective Patient denies any complaints currently mom is at bedside all the questions were answered I explained to her that she has a gastritis and CT to be on Protonix and Carafate. Changes from previous H/P or p: No Changes Eyes: No Pain, No Vision change, No Conjunctivae inflammation, No Eyelid inflammation, No Other, No Redness ENT: No Ear pain, No Ear discharge, No Nose pain, No Nose discharge, No Nose congestion, No Mouth pain, No Mouth swelling, No Throat pain, No Throat swelling, No Other Cardiovascular: No Chest Pain, No Palpitations, No Orthopnea, No Paroxysmal Noc. Dyspnea, No Edema, No Lt Headedness, No Other Respiratory: No Cough, No Dry, No Shortness of breath, No SOB with excertion, No Wheezing, No Hemoptysis, No Pleuritic Pain, No Sputum, No Other Gastrointestinal: Nausea; No Vomiting; Abdominal Pain, Diarrhea; No Constipation, No Melena, No Hematochezia, No Other Genitourinary: No Dysuria, No Frequency, No Incontinence, No Hematuria, No Retention, No Other Musculoskeletal: No other, No neck pain, No shoulder pain, No arm pain, No back pain, No hand pain, No leg pain, No foot pain Skin: No Rash, No Lesions, No Jaundice, No Bruising, No Other Objective Vitals Vital Signs Date Time Temp Pulse Resp B/P (MAP) Pulse Ox O2 Delivery O2 Flow Rate FiO2 08/08/25 13:00 97.8 86 16 107/73 (84) 98 97.8 08/08/25 08:00 Room Air* 0 21 Intake/Output Intake and Output 08/08/25 07:00 Intake Total 1240 ml Balance 1240 ml Intake Oral 940 ml IV Total 300 ml # Voids 4 Exam HEENT pupils are reactive Neck is supple CV is S1-S2 regular rate and rhythm Respiratory diminished breath sounds bases GI positive bowel sound Extremity no edema 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 no motor deficit Medications Current Medications Medications Dose Ordered Sig/Martha Route Start Time Stop Time Status Last Admin Dose Admin Cyclobenzaprine HCl 10 mg DAILYP@2200 PRN PO 08/07/25 10:00 Sucralfate 1 gm ACHS PO 08/06/25 17:00 08/08/25 13:50 1 GM Tamsulosin HCl 0.4 mg QPM PO 08/06/25 18:00 08/07/25 17:31 0.4 MG Patient Own Medication 20 mg DAILY PO 08/07/25 10:00 Polyethylene Glycol 17 gm DAILY PO 08/07/25 10:00 08/08/25 09:10 17 GM Sodium Chloride 1,000 ml @ 100 mls/hr Q10H IV 08/06/25 12:30 08/08/25 10:08 100 MLS/HR Ondansetron HCl 4 mg Q4HP PRN IV 08/06/25 12:30 08/07/25 05:00 4 MG Docusate Sodium 100 mg BIDPRN PRN PO 08/06/25 12:30 08/08/25 10:04 100 MG Nitroglycerin 0.4 mg Q5MINP PRN SL 08/06/25 12:30 Dicyclomine HCl 20 mg QID PO 08/06/25 18:00 08/20/25 17:59 08/08/25 13:54 20 MG Acetaminophen/ Hydrocodone Bitart 1 tab Q4HPRN PRN PO 08/07/25 01:45 08/08/25 07:04 1 TAB Lorazepam 0.5 mg Q8HP PRN PO 08/07/25 12:15 08/08/25 10:03 0.5 MG Pantoprazole Sodium 40 mg BID IV 08/07/25 22:00 08/08/25 09:10 40 MG Melatonin 5 mg HS PRN PO 08/07/25 15:30 08/07/25 21:20 5 MG Laboratory Results Laboratory Tests 08/07/25 02:48 Urinalysis Test 08/06/25 10:31 08/07/25 03:06 Urine Test Negative (Negative) Urine Color Dark-yellow (Yellow) Urine Clarity Turbid (Clear) H Urine pH 6.0 (5.0-9.0) Urine Specific [place] 1.021 (1.001-1.035) Urine Protein Trace (Negative) H Urine Ketones Negative (Negative) Urine Blood Negative /uL (Negative) Urine Nitrite 1+ (Negative) H Urine Bilirubin 1+ (Negative) H Urine Urobilinogen 3 mg/dL (Negative) H Urine Leukocyte Esterase Negative /uL (Negative) Urine RBC 5 /hpf (0 - 4) Urine Microscopic WBC 4 /HPF (0-5) Urine Squamous Epithelial Cells Mod /hpf (<5) Urine Calcium Oxalate Crystals Few (None Seen) Urine Bacteria Few /hpf (None Seen) H Urine Mucus Few (None Seen) Urine Yeast (Budding) Occasional /hpf (None Urine Glucose Normal mg/dL (Normal) Assessment/Plan Assessment/Plan 30-year-old female with a known history of mental delay, known history of gastritis diagnosed previously by EGD on August 03 presented to the hospital with the abdominal pain found to have 1. Intractable abdominal pain 2. Nausea and vomiting 3. Gastritis 4. Bilateral nonobstructive kidney stones -continue Protonix and Carafate, diet as tolerated, discharge plan once pain is resolved. Plan discussed with: Patient, Other (Patient's mom at bedside.) My Orders Orders - ALICIA RIVAS MD Procedure Category Date Status Time Basic Metabolic Panel LAB 08/08/25 Verified 17:02 Basic Metabolic Panel LAB 08/09/25 Verified 06:00 Complete Blood Count LAB 08/09/25 Verified 06:00 Magnesium LAB 08/09/25 Verified 06:00 Date of Service: Aug 08, 2025 Billing Provider: ALICIA RIVAS MD Common Visit Codes: [id number] INP/OBS CARE(HIGH) ALICIA RIVAS MD Aug 08, 2025 17:03
[2025-08-08 17:07] VITALS: BP 118/74; PULSE 84; RESP 20; TEMP 98.1; O2SAT 98
[2025-08-08 18:03] LABS: Potassium 3.9 mmol/L (3.5-5.1); Sodium 143 mmol/L (136-145)
[2025-08-08 18:04] LABS: Anion Gap 8 (5-15); Carbon Dioxide 25 mmol/L (20-31)
[2025-08-08 18:09] LABS: Glucose 106 mg/dL (74-106)
[2025-08-08 18:30] LABS: BUN/Creatinine Ratio 5.4 (10.0-20.0); Blood Urea Nitrogen < 5 mg/dL (9-23); Calcium 8.6 mg/dL (8.7-10.4); Chloride 110 mmol/L (98-107)
[2025-08-08 20:00] VITALS: PULSE 81; RESP 18; O2SAT 97
[2025-08-08 21:00] VITALS: BP 98/68; PULSE 84; RESP 18; TEMP 98; O2SAT 97
[2025-08-09 05:00] VITALS: BP 119/73; PULSE 108; RESP 18; TEMP 97.9; O2SAT 98
[2025-08-09 05:56] LABS: Hematocrit 31.1 % (36.0-46.0); Hemoglobin 10.5 g/dL (12.2-16.2); Mean Corpuscular Hemoglobin 32.5 pg (28.0-32.0); Mean Corpuscular Volume 96.3 fL (80.0-100.0); Nucleated Red Blood Cells % 0.1 %
[2025-08-09 06:08] LABS: Anion Gap 11 (5-15); Carbon Dioxide 27 mmol/L (20-31); Sodium 145 mmol/L (136-145)
[2025-08-09 06:10] LABS: Calcium 8.6 mg/dL (8.7-10.4); Chloride 107 mmol/L (98-107); Potassium 3.5 mmol/L (3.5-5.1)
[2025-08-09 06:14] LABS: Glucose 82 mg/dL (74-106)
[2025-08-09 06:15] LABS: Magnesium 1.8 mg/dL (1.6-2.6)
[2025-08-09 06:16] LABS: BUN/Creatinine Ratio 6.2 (10.0-20.0); Blood Urea Nitrogen < 5 mg/dL (9-23)
[2025-08-09 08:00] VITALS: PULSE 89; RESP 14; O2SAT 97
[2025-08-09 09:00] VITALS: BP 113/71; PULSE 89; RESP 18; TEMP 97.8; O2SAT 97
[2025-08-09 13:00] VITALS: BP 114/69; PULSE 66; RESP 14; TEMP 97.4; O2SAT 100
--- NOTE | 2025-08-09 14:57 | DVHPN2 ---
Changes from previous H/P or p: No Changes Eyes: No Pain, No Vision change, No Conjunctivae inflammation, No Eyelid inflammation, No Other, No Redness ENT: No Ear pain, No Ear discharge, No Nose pain, No Nose discharge, No Nose congestion, No Mouth pain, No Mouth swelling, No Throat pain, No Throat swelling, No Other Cardiovascular: No Chest Pain, No Palpitations, No Orthopnea, No Paroxysmal Noc. Dyspnea, No Edema, No Lt Headedness, No Other Respiratory: No Cough, No Dry, No Shortness of breath, No SOB with excertion, No Wheezing, No Hemoptysis, No Pleuritic Pain, No Sputum, No Other Gastrointestinal: Nausea; No Vomiting; Abdominal Pain, Diarrhea; No Constipation, No Melena, No Hematochezia, No Other Genitourinary: No Dysuria, No Frequency, No Incontinence, No Hematuria, No Retention, No Other Musculoskeletal: No other, No neck pain, No shoulder pain, No arm pain, No back pain, No hand pain, No leg pain, No foot pain Skin: No Rash, No Lesions, No Jaundice, No Bruising, No Other Objective Vitals Vital Signs Date Time Temp Pulse Resp B/P (MAP) Pulse Ox O2 Delivery O2 Flow Rate FiO2 08/09/25 13:00 97.4 66 14 114/69 (84) 100 97.4 08/08/25 20:00 Room Air* 0 21 Intake/Output Intake and Output 08/09/25 07:00 Intake Total 1120 ml Balance 1120 ml Intake Oral 1120 ml # Voids 5 Medications Current Medications Medications Dose Ordered Sig/Martha Route Start Time Stop Time Status Last Admin Dose Admin Cyclobenzaprine HCl 10 mg DAILYP@2200 PRN PO 08/07/25 10:00 Sucralfate 1 gm ACHS PO 08/06/25 17:00 08/09/25 12:39 1 GM Tamsulosin HCl 0.4 mg QPM PO 08/06/25 18:00 08/08/25 18:22 0.4 MG Patient Own Medication 20 mg DAILY PO 08/07/25 10:00 Polyethylene Glycol 17 gm DAILY PO 08/07/25 10:00 08/09/25 09:41 17 GM Sodium Chloride 1,000 ml @ 100 mls/hr Q10H IV 08/06/25 12:30 08/08/25 18:25 100 MLS/HR Ondansetron HCl 4 mg Q4HP PRN IV 08/06/25 12:30 08/07/25 05:00 4 MG Docusate Sodium 100 mg BIDPRN PRN PO 08/06/25 12:30 08/09/25 05:50 100 MG Nitroglycerin 0.4 mg Q5MINP PRN SL 08/06/25 12:30 Dicyclomine HCl 20 mg QID PO 08/06/25 18:00 08/20/25 17:59 08/09/25 12:39 20 MG Acetaminophen/ Hydrocodone Bitart 1 tab Q4HPRN PRN PO 08/07/25 01:45 08/09/25 12:39 1 TAB Lorazepam 0.5 mg Q8HP PRN PO 08/07/25 12:15 08/09/25 04:27 0.5 MG Pantoprazole Sodium 40 mg BID IV 08/07/25 22:00 08/09/25 09:41 40 MG Melatonin 5 mg HS PRN PO 08/07/25 15:30 08/08/25 22:32 5 MG Laboratory Results Laboratory Tests 08/09/25 04:59 Chemistry Test 08/08/25 17:23 08/09/25 04:59 Calcium Level 8.6 mg/dL (8.7-10.4) L 8.6 mg/dL (8.7-10.4) L Magnesium Level 1.8 mg/dL (1.6-2.6) Urinalysis Test 08/06/25 10:31 08/07/25 03:06 Urine Test Negative (Negative) Urine Color Dark-yellow (Yellow) Urine Clarity Turbid (Clear) H Urine pH 6.0 (5.0-9.0) Urine Specific [place] 1.021 (1.001-1.035) Urine Protein Trace (Negative) H Urine Ketones Negative (Negative) Urine Blood Negative /uL (Negative) Urine Nitrite 1+ (Negative) H Urine Bilirubin 1+ (Negative) H Urine Urobilinogen 3 mg/dL (Negative) H Urine Leukocyte Esterase Negative /uL (Negative) Urine RBC 5 /hpf (0 - 4) Urine Microscopic WBC 4 /HPF (0-5) Urine Squamous Epithelial Cells Mod /hpf (<5) Urine Calcium Oxalate Crystals Few (None Seen) Urine Bacteria Few /hpf (None Seen) H Urine Mucus Few (None Seen) Urine Yeast (Budding) Occasional /hpf (None Urine Glucose Normal mg/dL (Normal) Labs and/or images reviewed: Labs reviewed by me, Image(s) reviewed by me Assessment/Plan Assessment/Plan Patient was seen by Dr. Xie for the last two days 1. Intractable abdominal pain 2. Nausea and vomiting, patient is still complaining of abdominal pain, GI consult by Dr. Steve Hay 3. Gastritis diagnosed by EGD recently 4. Bilateral nonobstructive kidney stones -continue Protonix and Carafate, diet as tolerated, discharge plan once pain is resolved. RN Edgard, grandmother and caregiver at bed side. Plan discussed with: Patient Date of Service: Aug 09, 2025 Billing Provider: ELSA RAMOS MD Common Visit Codes: [id number] INP/OBS CARE(HIGH) ELSA RAMOS MD Aug 09, 2025 14:57
--- NOTE | 2025-08-09 15:29 | DVHCONRES ---
Date Seen: Aug 09, 2025 Resident Creating Document: KAITLYNN MATIAS RESIDENT Referring Physician Dr. Molina History of Present Illness 30-year-old female with past medical history of gastritis (recently diagnosed by EGD on August 03, 2025), thrombocytosis, kidney stones, recurrent UTIs, and mental delay presents with ongoing abdominal pain following recent hospitalization. Patient was discharged from [facility] on August 04, 2025 after being evaluated for abdominal pain, nausea, and vomiting. During that hospitalization, she underwent an EGD which revealed gastritis. She was prescribed Carafate, Protonix, and MiraLAX for constipation, and instructed to follow up with GI as an outpatient. Additional diagnoses at that time included intractable abdominal pain, intractable nausea, and non-obstructive bilateral kidney stones likely related to post-cystosis findings. Patients grandmother, who is at bedside, states the patient has had persistent abdominal pain since discharge. to the point pt was crying, Patient reports that the pain worsens with eating and is constant. She states she vomited once today but denies blood in the vomit, diarrhea, fever, chest pain, shortness of breath, or pelvic pressure. On evaluation, labs including CBC and CMP were unremarkable. UA was negative. Abdominal ultrasound from August 04, [address] scan from July 30, 2025 showed no acute findings. Given her continued symptoms, the patient will be admitted for further management of intractable abdominal pain. Patient seen and examined, no acute distress last bowel movement yesterday, abdomen tender but soft and normoactive. Reports feeling better, denies vomiting. Family History: Asthma G8 MOTHER Diabetes mellitus G8 MOTHER Allergies: Coded Allergies: NO KNOWN ALLERGIES (Unverified , 10/31/15) Home Meds Active Scripts Docusate Sodium (Docusate Sodium) 100 Mg Cap, 100 MG PO BID for 30 Days, #60 CAP 0 Refills Prov:LAMONT POLANCO MD 08/05/25 Pantoprazole Sodium Sesquihydr (Protonix) 40 Mg Tab, 40 MG PO DAILY for 30 Days, #30 TAB 0 Refills Prov:LAMONT POLANCO MD 08/05/25 Sucralfate (Sucralfate) 1 Gm/10 Ml Jacqueline, 1 GM PO ACHS for 30 Days, #30 GM 1 Refill Prov:LAMONT POLANCO MD 08/05/25 Polyethylene Glycol (Miralax) 17 Gm/Scoop Pow, 17 GM PO DAILY for 10 Days, #10 POW 0 Refills Prov:LAMONT POLANCO MD 08/05/25 Acetaminophen (Acetaminophen) 325 Mg Tab, 650 MG PO Q4HP PRN for 5 Days, #50 TAB Prov:ARELY oJrgeCALE RESIDENT 10/01/24 Duloxetine Hcl (Cymbalta) 20 Mg Cap, 20 MG PO DAILY for 30 Days, #30 CAP Prov:CALE CONDE RESIDENT 10/01/24 Reported Medications Tramadol Hcl (Tramadol Hcl) 50 Mg Tab, 50 MG PO BIDPRN PRN for PAIN SCALE 1 THRU 6, MG 10/01/24 Tamsulosin Hcl (Tamsulosin Hcl) 0.4 Mg Cap, 0.4 MG PO DAILY for 30 Days, MG 10/01/24 Cyclobenzaprine Hcl (Cyclobenzaprine Hcl) 10 Mg Tab, 10 MG PO DAILYP for 30 Days, MG 10/01/24 Discontinued Reported Medications Lidocaine HCl (Mouth-Throat) (Lidocaine HCl Viscous) 2 % Jaye, 2 % MT Q3HPRN PRN for PAIN SCALE 1 THRU 6, ML 07/30/25 Omeprazole (Gnp Omeprazole) 20 Mg Tab, 40 MG PO DAILY, TAB 07/30/25 Ibuprofen Micronized (Ibuprofen) 800 Mg Tab, 800 MG PO TIDP, TAB 10/01/24 Vital Signs Vital Signs Date Time Temp Pulse Resp B/P (MAP) Pulse Ox O2 Delivery O2 Flow Rate FiO2 08/09/25 13:00 97.4 66 14 114/69 (84) 100 97.4 08/09/25 08:00 Room Air* 0 21 Physical Exam Patient lying in bed, in no acute distress General: Obese, afebrile, palor, mucosae are moist Cardiovascular: Regular S1 and S2. No murmurs, gallops or rubs. No JVD elevation. No pedal edema Respiratory: Normal B/L air entry on room air. Clear lung sounds on auscultation Abdomen: Soft, tender, nondistended, normoactive bowel sounds, no rebound tenderness, no organomegaly, no masses Genitourinary: Deferred MSK/skin: Mobilizes 4 limbs. Skin is dry and warm Neurological: No motor, no sensitive deficits, normal speech. Pupils are isocoric and reactive. Psych/Mental Status: A/Ox3 Labs/Diagnostic Data Labs Test 08/09/25 04:59 08/07/25 03:06 08/07/25 02:48 08/06/25 10:31 Range/Units White Blood Count 5.2 # 4.4-10.8 10^3/uL Red Blood Count 3.23 L 4.0-5.20 10^6/uL Hemoglobin 10.5 L 12.2-16.2 g/dL Hematocrit 31.1 #L 36.0-46.0 % Mean Corpuscular Volume 96.3 80.0-100.0 fL Mean Corpuscular Hemoglobin 32.5 H 28.0-32.0 pg Mean Corpuscular Hemoglobin Concent 33.7 32.0-36.0 g/dL Red Cell Distribution Width 14.7 H 11.8-14.3 % Platelet Count 338 140-450 10^3/uL Mean Platelet Volume 9.7 6.9-10.8 fL Neutrophils (%) (Auto) 48.7 37.0-80.0 % Lymphocytes (%) (Auto) 36.3 10.0-50.0 % Monocytes (%) (Auto) 11.4 0.0-12.0 % Eosinophils (%) (Auto) 2.8 0.0-7.0 % Basophils (%) (Auto) 0.8 0.0-2.0 % Neutrophils # (Auto) 2.5 1.6-8.6 10 ^3/uL Lymphocytes # (Auto) 1.9 0.4-5.4 10 ^3/uL Monocytes # (Auto) 0.6 0-1.3 10 ^3/uL Eosinophils # (Auto) 0.1 0-0.8 10 ^3/uL Basophils # (Auto) 0 0-0.2 10 ^3/uL Nucleated Red Blood Cells 0.1 % Sodium Level 145 136-145 mmol/L Potassium Level 3.5 3.5-5.1 mmol/L Chloride Level 107 98-107 mmol/L Carbon Dioxide Level 27 20-31 mmol/L Anion Gap 11 5-15 Blood Urea Nitrogen < 5 L 9-23 mg/dL Creatinine 0.81 0.550-1.02 mg/dL Glomerular Filtration Rate Calc 99 >90 mL/min BUN/Creatinine Ratio 6.2 L 10.0-20.0 Serum Glucose 82 74-106 mg/dL Calcium Level 8.6 L 8.7-10.4 mg/dL Magnesium Level 1.8 1.6-2.6 mg/dL Urine Color Dark-yellow Yellow Urine Clarity Turbid H Clear Urine pH 6.0 5.0-9.0 Urine Specific [place] 1.021 1.001-1.035 Urine Protein Trace H Negative Urine Ketones Negative Negative Urine Blood Negative Negative /uL Urine Nitrite 1+ H Negative Urine Bilirubin 1+ H Negative Urine Urobilinogen 3 H Negative mg/dL Urine Leukocyte Esterase Negative Negative /uL Urine RBC 5 0 - 4 /hpf Urine Microscopic WBC 4 0-5 /HPF Urine Squamous Epithelial Cells Mod <5 /hpf Urine Calcium Oxalate Crystals Few None Seen Urine Bacteria Few H None Seen /hpf Urine Mucus Few None Seen Urine Yeast (Budding) Occasional None Seen /hpf Urine Glucose Normal Normal mg/dL Total Bilirubin 0.8 0.2-1.0 mg/dL Aspartate Amino Transferase (AST) 20 13-40 U/L Alanine Aminotransferase (ALT) 19 7-40 U/L Alkaline Phosphatase 44 L 46-116 U/L Total Protein 6.5 5.7-8.2 g/dL Albumin 3.8 3.2-4.8 g/dL Urine Test Negative Negative Test 08/06/25 10:16 Range/Units Lipase 29 12-53 U/L Assessment Abdominal pain secondary to Moderate gastritis Ruled out peptic ulcer disease Intractable nausea and vomiting Developmental delay Punctate nonobstructive bilateral nephrolithiasis Obesity Plan/Recommendation Open EGD completed August 03, 2025 shows [id number] gastritis involving the antrum and body of the stomach with mild pylorospasm Plan: Recommendation: Dr. Hay No acute GI intervention indicated at this time. Patient recently underwent upper EGD. Continue Protonix 40 mg p.o. daily, Carafate 1 g twice daily Follow up with path reports MiraLax 17 g p.o. daily Rest of management per primary team Plan discussed with the patient in which all questions have been answered Case discussed with Dr. Hay Plan discussed with: Patient KAITLYNN MATIAS RESIDENT Aug 09, 2025 15:29
[2025-08-09 17:00] VITALS: BP 98/60; PULSE 86; RESP 16; TEMP 98.1; O2SAT 97
[2025-08-09 21:00] VITALS: BP 112/81; PULSE 110; RESP 20; TEMP 97.9; O2SAT 98
[2025-08-09] MEDS: SUCRALFATE 1 GM/10 ML ORAL SUSP PO SCH (22:38)
[2025-08-10 05:00] VITALS: BP 104/63; PULSE 78; RESP 18; TEMP 97.6; O2SAT 98
[2025-08-10 08:00] VITALS: PULSE 98; RESP 18; O2SAT 98
--- NOTE | 2025-08-10 08:31 | DVHPN2 ---
Changes from previous H/P or p: No Changes Eyes: No Pain, No Vision change, No Conjunctivae inflammation, No Eyelid inflammation, No Other, No Redness ENT: No Ear pain, No Ear discharge, No Nose pain, No Nose discharge, No Nose congestion, No Mouth pain, No Mouth swelling, No Throat pain, No Throat swelling, No Other Cardiovascular: No Chest Pain, No Palpitations, No Orthopnea, No Paroxysmal Noc. Dyspnea, No Edema, No Lt Headedness, No Other Respiratory: No Cough, No Dry, No Shortness of breath, No SOB with excertion, No Wheezing, No Hemoptysis, No Pleuritic Pain, No Sputum, No Other Gastrointestinal: Nausea; No Vomiting; Abdominal Pain, Diarrhea; No Constipation, No Melena, No Hematochezia, No Other Genitourinary: No Dysuria, No Frequency, No Incontinence, No Hematuria, No Retention, No Other Musculoskeletal: No other, No neck pain, No shoulder pain, No arm pain, No back pain, No hand pain, No leg pain, No foot pain Skin: No Rash, No Lesions, No Jaundice, No Bruising, No Other Objective Vitals Vital Signs Date Time Temp Pulse Resp B/P (MAP) Pulse Ox O2 Delivery O2 Flow Rate FiO2 08/10/25 05:00 97.6 78 18 104/63 (77) 98 97.6 08/09/25 20:00 Room Air* 0 21 Intake/Output Intake and Output 08/10/25 07:00 Intake Total 1640 ml Balance 1640 ml Intake Oral 1040 ml IV Total 600 ml # Voids 5 Medications Current Medications Medications Dose Ordered Sig/Martha Route Start Time Stop Time Status Last Admin Dose Admin Cyclobenzaprine HCl 10 mg DAILYP@2200 PRN PO 08/07/25 10:00 Tamsulosin HCl 0.4 mg QPM PO 08/06/25 18:00 08/09/25 17:15 0.4 MG Patient Own Medication 20 mg DAILY PO 08/07/25 10:00 Polyethylene Glycol 17 gm DAILY PO 08/07/25 10:00 08/09/25 09:41 17 GM Sodium Chloride 1,000 ml @ 100 mls/hr Q10H IV 08/06/25 12:30 08/09/25 22:41 100 MLS/HR Ondansetron HCl 4 mg Q4HP PRN IV 08/06/25 12:30 08/07/25 05:00 4 MG Docusate Sodium 100 mg BIDPRN PRN PO 08/06/25 12:30 08/09/25 05:50 100 MG Nitroglycerin 0.4 mg Q5MINP PRN SL 08/06/25 12:30 Dicyclomine HCl 20 mg QID PO 08/06/25 18:00 08/20/25 17:59 08/10/25 05:57 20 MG Acetaminophen/ Hydrocodone Bitart 1 tab Q4HPRN PRN PO 08/07/25 01:45 08/10/25 06:53 1 TAB Lorazepam 0.5 mg Q8HP PRN PO 08/07/25 12:15 08/10/25 02:29 0.5 MG Pantoprazole Sodium 40 mg BID IV 08/07/25 22:00 08/09/25 22:38 40 MG Melatonin 5 mg HS PRN PO 08/07/25 15:30 08/08/25 22:32 5 MG Sucralfate 1 gm BID PO 08/09/25 22:00 08/09/25 22:38 1 GM Laboratory Results Laboratory Tests 08/09/25 04:59 Urinalysis Test 08/06/25 10:31 08/07/25 03:06 Urine Test Negative (Negative) Urine Color Dark-yellow (Yellow) Urine Clarity Turbid (Clear) H Urine pH 6.0 (5.0-9.0) Urine Specific [place] 1.021 (1.001-1.035) Urine Protein Trace (Negative) H Urine Ketones Negative (Negative) Urine Blood Negative /uL (Negative) Urine Nitrite 1+ (Negative) H Urine Bilirubin 1+ (Negative) H Urine Urobilinogen 3 mg/dL (Negative) H Urine Leukocyte Esterase Negative /uL (Negative) Urine RBC 5 /hpf (0 - 4) Urine Microscopic WBC 4 /HPF (0-5) Urine Squamous Epithelial Cells Mod /hpf (<5) Urine Calcium Oxalate Crystals Few (None Seen) Urine Bacteria Few /hpf (None Seen) H Urine Mucus Few (None Seen) Urine Yeast (Budding) Occasional /hpf (None Urine Glucose Normal mg/dL (Normal) Labs and/or images reviewed: Labs reviewed by me, Image(s) reviewed by me Assessment/Plan Assessment/Plan Patient was seen by Dr. Xie for the last two days 1. Intractable abdominal pain 2. Nausea and vomiting, patient is still complaining of abdominal pain, GI consult by Dr. Steve Hay 3. Gastritis diagnosed by EGD recently 4. Bilateral nonobstructive kidney stones EGD 08/03/2025 shows [id number] gastritis involving the antrum and body of the stomach with mild pylorospasm GI Dr. Steve Hay advised pantoprazole and Carafate and no further GI workup SOWMYA Rene at bedside Plan discussed with: Patient My Orders Orders - ELSA RAMOS MD Procedure Category Date Status Time * [facility] [employer] CONS 08/09/25 Transmitted 14:57 Date of Service: Aug 10, 2025 Billing Provider: ELSA RAMOS MD Common Visit Codes: [id number] INP/OBS CARE(HIGH) ELSA RAMOS MD Aug 10, 2025 08:31
[2025-08-10] MEDS ORDERED: SUCR1TAB31 PO (08:34)
[2025-08-10] MEDS ORDERED: PANT40T PO (08:34)
[2025-08-10] MEDS ORDERED: DICY10CA PO (08:34)
--- NOTE | 2025-08-10 08:38 | DVHDS2 ---
Discharge Summary Date of Admission Aug 06, 2025 at 12:23 Date of Discharge: Aug 10, 2025 Admitting Diagnosis Abdominal pain nausea and vomiting Wounds: None Labs/Diagnostic Data: Laboratory Results Test 08/09/25 04:59 08/07/25 03:06 08/07/25 02:48 08/06/25 10:31 White Blood Count 5.2 10^3/uL (4.4-10.8) Red Blood Count 3.23 10^6/uL (4.0-5.20) Hemoglobin 10.5 g/dL (12.2-16.2) Hematocrit 31.1 % (36.0-46.0) Mean Corpuscular Volume 96.3 fL (80.0-100.0) Mean Corpuscular Hemoglobin 32.5 pg (28.0-32.0) Mean Corpuscular Hemoglobin Concent 33.7 g/dL (32.0-36.0) Red Cell Distribution Width 14.7 % (11.8-14.3) Platelet Count 338 10^3/uL (140-450) Mean Platelet Volume 9.7 fL (6.9-10.8) Neutrophils (%) (Auto) 48.7 % (37.0-80.0) Lymphocytes (%) (Auto) 36.3 % (10.0-50.0) Monocytes (%) (Auto) 11.4 % (0.0-12.0) Eosinophils (%) (Auto) 2.8 % (0.0-7.0) Basophils (%) (Auto) 0.8 % (0.0-2.0) Neutrophils # (Auto) 2.5 10 ^3/uL (1.6-8.6) Lymphocytes # (Auto) 1.9 10 ^3/uL (0.4-5.4) Monocytes # (Auto) 0.6 10 ^3/uL (0-1.3) Eosinophils # (Auto) 0.1 10 ^3/uL (0-0.8) Basophils # (Auto) 0 10 ^3/uL (0-0.2) Nucleated Red Blood Cells 0.1 % Sodium Level 145 mmol/L (136-145) Potassium Level 3.5 mmol/L (3.5-5.1) Chloride Level 107 mmol/L (98-107) Carbon Dioxide Level 27 mmol/L (20-31) Anion Gap 11 (5-15) Blood Urea Nitrogen < 5 mg/dL (9-23) Creatinine 0.81 mg/dL (0.550-1.02) Glomerular Filtration Rate Calc 99 mL/min (>90) BUN/Creatinine Ratio 6.2 (10.0-20.0) Serum Glucose 82 mg/dL (74-106) Calcium Level 8.6 mg/dL (8.7-10.4) Magnesium Level 1.8 mg/dL (1.6-2.6) Urine Color Dark-yellow (Yellow) Urine Clarity Turbid (Clear) Urine pH 6.0 (5.0-9.0) Urine Specific [place] 1.021 (1.001-1.035) Urine Protein Trace (Negative) Urine Ketones Negative (Negative) Urine Blood Negative /uL (Negative) Urine Nitrite 1+ (Negative) Urine Bilirubin 1+ (Negative) Urine Urobilinogen 3 mg/dL (Negative) Urine Leukocyte Esterase Negative /uL (Negative) Urine RBC 5 /hpf (0 - 4) Urine Microscopic WBC 4 /HPF (0-5) Urine Squamous Epithelial Cells Mod /hpf (<5) Urine Calcium Oxalate Crystals Few (None Seen) Urine Bacteria Few /hpf (None Seen) Urine Mucus Few (None Seen) Urine Yeast (Budding) Occasional /hpf (None Urine Glucose Normal mg/dL (Normal) Total Bilirubin 0.8 mg/dL (0.2-1.0) Aspartate Amino Transferase (AST) 20 U/L (13-40) Alanine Aminotransferase (ALT) 19 U/L (7-40) Alkaline Phosphatase 44 U/L (46-116) Total Protein 6.5 g/dL (5.7-8.2) Albumin 3.8 g/dL (3.2-4.8) Urine Test Negative (Negative) Test 08/06/25 10:16 Lipase 29 U/L (12-53) Other Laboratory Tests 08/09/25 04:59 Brief Hx & Hospital Course: 30-year-old female with developmental delay discharged from this hospital on 08/05/2025 after EGD which showed [id number] gastritis indwelling antrum and body prescribed pantoprazole and Carafate patient was brought back and readmitted For the same complaint. Treated with the pantoprazole and Carafate. Patient has a bilateral nonobstructive kidney stones patient was again evaluated by Dr. Steve Hay and advised no further workup and discharged home on pantoprazole and Carafate. Patient was discharged. Prescription sent to the pharmacy. drop board worker consult placed to inform the grandmother to picker tender helper the patient .SOWMYA Rene at bedside during the discussion of discharge plan with the patient. Consults/Reason for consult GI Dr. Steve Hay Operations or Procedures EGD 08-03-25 Condition at Discharge: Fair Final Diagnosis/Problems List 1. Intractable abdominal pain 2. Nausea and vomiting, patient is still complaining of abdominal pain, GI consult by Dr. Steve Hay 3. Gastritis diagnosed by EGD recently 4. Bilateral nonobstructive kidney stones EGD 08/03/2025 shows Spkg-uw-[id number] gastritis involving the antrum and body of the stomach with mild pylorospasm GI Dr. Steve Hay advised pantoprazole and Carafate and no further GI workup Discharge Disposition: Home Discharge Instruct/Medications Diet: Regular Activity: No Restrictions, As Tolerated Follow Up/Referral: Resume all previous home medications Follow up with the primary Dr in one week Follow up with GI Dr. Steve Hay in two weeks Medications: Pantoprazole Carafate Bentyl Transmitted to pharmacy Reviewed all other home meds Scheduled Cyclobenzaprine Hcl (Cyclobenzaprine Hcl), 10 MG PO DAILYP, (Reported) Dicyclomine Hcl (Bentyl Capsule), 1 CAP PO TID Docusate Sodium (Docusate Sodium), 100 MG PO BID Duloxetine Hcl (Cymbalta), 20 MG PO DAILY Pantoprazole Sodium Sesquihydr (Protonix), 40 MG PO DAILY Pantoprazole Sodium Sesquihydr (Pantoprazole Sodium), 40 MG PO BID Polyethylene Glycol (Miralax), 17 GM PO DAILY Sucralfate (Sucralfate), 1 GM PO ACHS Sucralfate (Carafate), 1 GM PO QID Tamsulosin Hcl (Tamsulosin Hcl), 0.4 MG PO DAILY, (Reported) Scheduled PRN Acetaminophen (Acetaminophen), 650 MG PO Q4HP PRN Tramadol Hcl (Tramadol Hcl), 50 MG PO BIDPRN PRN for PAIN SCALE 1 THRU 6, (Reported) Discontinued Medications Ibuprofen Micronized (Ibuprofen), 800 MG PO TIDP, (Reported) Lidocaine HCl (Mouth-Throat) (Lidocaine HCl Viscous), 2 % MT Q3HPRN PRN for PAIN SCALE 1 THRU 6, (Reported) Omeprazole (Gnp Omeprazole), 40 MG PO DAILY, (Reported) 39 (Time taken for discharge summary 39 minutes) Discharge Statement: "Patient was advised to return to the ER or call 911 if any headaches, dizziness, shortness of breath, chest pain, abdominal pain, bleeding, fevers, or worsening of medical condition. Patient was counseled about treatment plan, medications, possible side effects, patientverbalized understanding. All questions were answered to the best of my ability. This discharge took greater then 30 minutes in planning, reviewing documentation, counseling the patient, and discussing with other team members." ASSESSMENT ASSESSMENT Hospital Course Improved Assessment 1. Intractable abdominal pain 2. Nausea and vomiting, patient is still complaining of abdominal pain, GI consult by Dr. Steve Hay 3. Gastritis diagnosed by EGD recently 4. Bilateral nonobstructive kidney stones EGD 08/03/2025 shows Xysq-qb-yjfpzexu gastritis involving the antrum and body of the stomach with mild pylorospasm GI Dr. Steve Hay advised pantoprazole and Carafate and no further GI workup Date of Service: Aug 10, 2025 Billing Provider: ELSA RAMOS MD Common Visit Codes: 10134-OHE/OBS DISCH DAY >30min ELSA RAMOS MD Aug 10, 2025 08:38
[2025-08-10 09:00] VITALS: BP 104/51; PULSE 68; RESP 18; TEMP 98.1; O2SAT 97
[2025-08-10 13:00] VITALS: BP 138/86; PULSE 90; RESP 18; TEMP 98.4; O2SAT 95
--- NOTE | 2025-08-10 15:38 | DVHPN2 ---
Progress Note Date Seen: Aug 10, 2025 Resident Creating Document: KAITLYNN MATIAS RESIDENT Medical Necessity Reason Pt with a Central, PICC or Fol: No Subjective Review of Systems 30-year-old female with past medical history of gastritis (recently diagnosed by EGD on August 03, 2025), thrombocytosis, kidney stones, recurrent UTIs, and mental delay presents with ongoing abdominal pain following recent hospitalization. Patient was discharged from [facility] on August 04, 2025 after being evaluated for abdominal pain, nausea, and vomiting. During that hospitalization, she underwent an EGD which revealed gastritis. She was prescribed Carafate, Protonix, and MiraLAX for constipation, and instructed to follow up with GI as an outpatient. Additional diagnoses at that time included intractable abdominal pain, intractable nausea, and non-obstructive bilateral kidney stones likely related to post-cystosis findings. Patients grandmother, who is at bedside, states the patient has had persistent abdominal pain since discharge. to the point pt was crying, Patient reports that the pain worsens with eating and is constant. She states she vomited once today but denies blood in the vomit, diarrhea, fever, chest pain, shortness of breath, or pelvic pressure. On evaluation, labs including CBC and CMP were unremarkable. UA was negative. Abdominal ultrasound from August 04, [address] scan from July 30, 2025 showed no acute findings. Given her continued symptoms, the patient will be admitted for further management of intractable abdominal pain. 08/09-Patient seen and examined, no acute distress last bowel movement yesterday, abdomen tender but soft and normoactive. Reports feeling better, denies vomiting. 08/10-patient seen and examined. Reports eating well, had a bowel movement. Abdomen mildly tender. Reports that she does not want to go home, requesting social insurance administrator. Objective vital signs Vital Sign Date Time Temp Pulse Resp B/P (MAP) Pulse Ox O2 Delivery O2 Flow Rate FiO2 08/10/25 13:00 98.4 90 18 138/86 (103) 95 98.4 08/10/25 08:00 Room Air* 0 21 Total Intake and Output 08/09/25 08/09/25 08/10/25 15:00 23:00 07:00 Intake Total 720 ml 920 ml Balance 720 ml 920 ml medications Current Medications Medications Dose Ordered Sig/Martha Route Start Time Stop Time Status Last Admin Dose Admin Cyclobenzaprine HCl 10 mg DAILYP@2200 PRN PO 08/07/25 10:00 Tamsulosin HCl 0.4 mg QPM PO 08/06/25 18:00 08/09/25 17:15 0.4 MG Patient Own Medication 20 mg DAILY PO 08/07/25 10:00 Polyethylene Glycol 17 gm DAILY PO 08/07/25 10:00 08/10/25 11:21 17 GM Sodium Chloride 1,000 ml @ 100 mls/hr Q10H IV 08/06/25 12:30 08/09/25 22:41 100 MLS/HR Ondansetron HCl 4 mg Q4HP PRN IV 08/06/25 12:30 08/07/25 05:00 4 MG Docusate Sodium 100 mg BIDPRN PRN PO 08/06/25 12:30 08/09/25 05:50 100 MG Nitroglycerin 0.4 mg Q5MINP PRN SL 08/06/25 12:30 Dicyclomine HCl 20 mg QID PO 08/06/25 18:00 08/20/25 17:59 08/10/25 12:08 20 MG Acetaminophen/ Hydrocodone Bitart 1 tab Q4HPRN PRN PO 08/07/25 01:45 08/10/25 11:22 1 TAB Lorazepam 0.5 mg Q8HP PRN PO 08/07/25 12:15 08/10/25 11:22 0.5 MG Pantoprazole Sodium 40 mg BID IV 08/07/25 22:00 08/10/25 11:22 40 MG Melatonin 5 mg HS PRN PO 08/07/25 15:30 08/08/25 22:32 5 MG Sucralfate 1 gm BID PO 08/09/25 22:00 08/10/25 11:22 1 GM Examination Patient lying in bed, in no acute distress General: Obese, afebrile, palor, mucosae are moist Cardiovascular: Regular S1 and S2. No murmurs, gallops or rubs. No JVD elevation. No pedal edema Respiratory: Normal B/L air entry on room air. Clear lung sounds on auscultation Abdomen: Soft, tender, nondistended, normoactive bowel sounds, no rebound tenderness, no organomegaly, no masses Genitourinary: Deferred MSK/skin: Mobilizes 4 limbs. Skin is dry and warm Neurological: No motor, no sensitive deficits, normal speech. Pupils are isocoric and reactive. Psych/Mental Status: Anxious, A/Ox3 laboratory and microbiology Laboratory Tests 08/09/25 04:59 Test 08/09/25 04:59 Range/Units Serum Glucose 82 74-106 mg/dL Labs and/or images reviewed: Labs reviewed by me, Image(s) reviewed by me Problem List/Assessment/Plan Problem List/Assessment/Plan Abdominal pain secondary to Moderate gastritis Ruled out peptic ulcer disease Intractable nausea and vomiting Developmental delay Punctate nonobstructive bilateral nephrolithiasis Obesity. Plan/Recommendation Upper EGD completed August 03, 2025 shows Tljo-eu-autmekbf gastritis involving the antrum and body of the stomach with mild pylorospasm No acute GI intervention indicated at this time. Patient recently underwent upper EGD. Continue Protonix 40 mg p.o. daily, Carafate 1 g twice daily Follow up with path reports MiraLax 17 g p.o. daily Rest of management per primary team Plan discussed with the patient in which all questions have been answered Case discussed with Dr. Hay Plan discussed with: Patient Dietary Evaluation Review Comments: Nutrition Recommendation: 1) Ensure High Protein 240ml BID if PO intake <50% 2) Monitor PO intake, lab values, weight trend, and I/O Expected Outcomes/Goals: GI symptoms to improve Intake to meet >75% estimated needs FU 3-5 days KAITLYNN MATIAS RESIDENT Aug 10, 2025 15:38
[2025-08-10 17:00] VITALS: BP 116/61; PULSE 68; RESP 14; TEMP 97.4; O2SAT 98
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
[2025-08-10] MEDS: CYCLOBENZAPRINE HCL 10 MG TAB PO PRN (18:11)
[2025-08-10 21:00] VITALS: BP 120/70; PULSE 106; RESP 17; TEMP 97.6; O2SAT 98
[2025-08-11 05:00] VITALS: BP 109/69; PULSE 98; RESP 18; TEMP 98.4; O2SAT 98
[2025-08-11 09:44] VITALS: BP 107/63; PULSE 79; RESP 17; TEMP 98.1; O2SAT 97
--- NOTE | 2025-08-11 09:44 | DVHPN2 ---
Changes from previous H/P or p: No Changes Eyes: No Pain, No Vision change, No Conjunctivae inflammation, No Eyelid inflammation, No Other, No Redness ENT: No Ear pain, No Ear discharge, No Nose pain, No Nose discharge, No Nose congestion, No Mouth pain, No Mouth swelling, No Throat pain, No Throat swelling, No Other Cardiovascular: No Chest Pain, No Palpitations, No Orthopnea, No Paroxysmal Noc. Dyspnea, No Edema, No Lt Headedness, No Other Respiratory: No Cough, No Dry, No Shortness of breath, No SOB with excertion, No Wheezing, No Hemoptysis, No Pleuritic Pain, No Sputum, No Other Gastrointestinal: Nausea; No Vomiting; Abdominal Pain, Diarrhea; No Constipation, No Melena, No Hematochezia, No Other Genitourinary: No Dysuria, No Frequency, No Incontinence, No Hematuria, No Retention, No Other Musculoskeletal: No other, No neck pain, No shoulder pain, No arm pain, No back pain, No hand pain, No leg pain, No foot pain Skin: No Rash, No Lesions, No Jaundice, No Bruising, No Other Objective Vitals Vital Signs Date Time Temp Pulse Resp B/P (MAP) Pulse Ox O2 Delivery O2 Flow Rate FiO2 08/11/25 08:00 Room Air* 0 21 08/11/25 05:00 98.4 98 18 109/69 (82) 98 98.4 Intake/Output Intake and Output 08/11/25 07:00 Intake Total 1750 ml Balance 1750 ml Intake Oral 1400 ml IV Total 350 ml # Voids 5 # Bowel Movements 1 Medications Current Medications Medications Dose Ordered Sig/Martha Route Start Time Stop Time Status Last Admin Dose Admin Cyclobenzaprine HCl 10 mg DAILYP@2200 PRN PO 08/07/25 10:00 08/10/25 18:13 10 MG Tamsulosin HCl 0.4 mg QPM PO 08/06/25 18:00 08/10/25 18:11 0.4 MG Patient Own Medication 20 mg DAILY PO 08/07/25 10:00 Polyethylene Glycol 17 gm DAILY PO 08/07/25 10:00 08/10/25 11:21 17 GM Sodium Chloride 1,000 ml @ 100 mls/hr Q10H IV 08/06/25 12:30 08/11/25 02:24 100 MLS/HR Ondansetron HCl 4 mg Q4HP PRN IV 08/06/25 12:30 08/07/25 05:00 4 MG Docusate Sodium 100 mg BIDPRN PRN PO 08/06/25 12:30 08/09/25 05:50 100 MG Nitroglycerin 0.4 mg Q5MINP PRN SL 08/06/25 12:30 Dicyclomine HCl 20 mg QID PO 08/06/25 18:00 08/20/25 17:59 08/11/25 05:44 20 MG Acetaminophen/ Hydrocodone Bitart 1 tab Q4HPRN PRN PO 08/07/25 01:45 08/10/25 11:22 1 TAB Lorazepam 0.5 mg Q8HP PRN PO 08/07/25 12:15 08/10/25 22:02 0.5 MG Pantoprazole Sodium 40 mg BID IV 08/07/25 22:00 08/10/25 21:58 40 MG Melatonin 5 mg HS PRN PO 08/07/25 15:30 08/08/25 22:32 5 MG Sucralfate 1 gm BID PO 08/09/25 22:00 08/10/25 21:58 1 GM Laboratory Results Laboratory Tests 08/09/25 04:59 Urinalysis Test 08/06/25 10:31 08/07/25 03:06 Urine Test Negative (Negative) Urine Color Dark-yellow (Yellow) Urine Clarity Turbid (Clear) H Urine pH 6.0 (5.0-9.0) Urine Specific [place] 1.021 (1.001-1.035) Urine Protein Trace (Negative) H Urine Ketones Negative (Negative) Urine Blood Negative /uL (Negative) Urine Nitrite 1+ (Negative) H Urine Bilirubin 1+ (Negative) H Urine Urobilinogen 3 mg/dL (Negative) H Urine Leukocyte Esterase Negative /uL (Negative) Urine RBC 5 /hpf (0 - 4) Urine Microscopic WBC 4 /HPF (0-5) Urine Squamous Epithelial Cells Mod /hpf (<5) Urine Calcium Oxalate Crystals Few (None Seen) Urine Bacteria Few /hpf (None Seen) H Urine Mucus Few (None Seen) Urine Yeast (Budding) Occasional /hpf (None Urine Glucose Normal mg/dL (Normal) Labs and/or images reviewed: Labs reviewed by me, Image(s) reviewed by me Assessment/Plan Assessment/Plan Patient was seen by Dr. Xie for the last two days 1. Intractable abdominal pain 2. Nausea and vomiting, patient is still complaining of abdominal pain, GI consult by Dr. Steve Hay 3. Gastritis diagnosed by EGD recently 4. Bilateral nonobstructive kidney stones EGD 08/03/2025 shows [id number] gastritis involving the antrum and body of the stomach with mild pylorospasm GI Dr. Steve Hay advised pantoprazole and Carafate and no further GI workup Patient was discharged on 08/10/2025 and refused to leave Patient was yelling and screaming at nurses and technical support associate and clinical social work aide Tele psych consult was placed ; Dr. Vazquez felt no 5150 and no psychotropic medications and advised to provide support services APS report was filed by the clinical social work aide as the grandmother is not able to take care of the patient Patient refusing to go home SOWMYA Quigley at bedside Plan discussed with: Patient My Orders Orders - ELSA RAMOS MD Procedure Category Date Status Time * Abrasive Grinder CONS 08/10/25 Transmitted Consult *Tele Psych Consult CONS 08/10/25 Transmitted 11:59 Date of Service: Aug 11, 2025 Billing Provider: ELSA RAMOS MD Common Visit Codes: [id number] INP/OBS CARE(HIGH) ELSA RAMOS MD Aug 11, 2025 09:44
[2025-08-11 12:52] VITALS: BP 103/67; PULSE 87; RESP 17; TEMP 98.5; O2SAT 98
--- NOTE | 2025-08-11 14:26 | DVHPN2 ---
Subjective Patient tolerating diet well No nausea vomiting Denies abdominal pain Patient is waiting to be placed does not want to go back home to her grandmother Changes from previous H/P or p: No Changes Objective Vitals Vital Signs Date Time Temp Pulse Resp B/P (MAP) Pulse Ox O2 Delivery O2 Flow Rate FiO2 08/11/25 12:52 98.5 87 17 103/67 (79) 98 98.5 08/11/25 08:00 Room Air* 0 21 Intake/Output Intake and Output 08/11/25 07:00 Intake Total 1750 ml Balance 1750 ml Intake Oral 1400 ml IV Total 350 ml # Voids 5 # Bowel Movements 1 Exam General alert and oriented no apparent distress Cardio regular rate and rhythm Lungs clear to auscultation Abdomen positive bowel sounds nontender nondistended Medications Current Medications Medications Dose Ordered Sig/Martha Route Start Time Stop Time Status Last Admin Dose Admin Cyclobenzaprine HCl 10 mg DAILYP@2200 PRN PO 08/07/25 10:00 08/10/25 18:13 10 MG Tamsulosin HCl 0.4 mg QPM PO 08/06/25 18:00 08/10/25 18:11 0.4 MG Patient Own Medication 20 mg DAILY PO 08/07/25 10:00 Polyethylene Glycol 17 gm DAILY PO 08/07/25 10:00 08/11/25 09:50 17 GM Ondansetron HCl 4 mg Q4HP PRN IV 08/06/25 12:30 08/07/25 05:00 4 MG Docusate Sodium 100 mg BIDPRN PRN PO 08/06/25 12:30 08/09/25 05:50 100 MG Nitroglycerin 0.4 mg Q5MINP PRN SL 08/06/25 12:30 Dicyclomine HCl 20 mg QID PO 08/06/25 18:00 08/20/25 17:59 08/11/25 12:12 20 MG Acetaminophen/ Hydrocodone Bitart 1 tab Q4HPRN PRN PO 08/07/25 01:45 08/10/25 11:22 1 TAB Lorazepam 0.5 mg Q8HP PRN PO 08/07/25 12:15 08/10/25 22:02 0.5 MG Melatonin 5 mg HS PRN PO 08/07/25 15:30 08/08/25 22:32 5 MG Sucralfate 1 gm BID PO 08/09/25 22:00 08/11/25 09:50 1 GM Pantoprazole Sodium 40 mg BID PO 08/11/25 22:00 Laboratory Results Laboratory Tests 08/09/25 04:59 Urinalysis Test 08/06/25 10:31 08/07/25 03:06 Urine Test Negative (Negative) Urine Color Dark-yellow (Yellow) Urine Clarity Turbid (Clear) H Urine pH 6.0 (5.0-9.0) Urine Specific [place] 1.021 (1.001-1.035) Urine Protein Trace (Negative) H Urine Ketones Negative (Negative) Urine Blood Negative /uL (Negative) Urine Nitrite 1+ (Negative) H Urine Bilirubin 1+ (Negative) H Urine Urobilinogen 3 mg/dL (Negative) H Urine Leukocyte Esterase Negative /uL (Negative) Urine RBC 5 /hpf (0 - 4) Urine Microscopic WBC 4 /HPF (0-5) Urine Squamous Epithelial Cells Mod /hpf (<5) Urine Calcium Oxalate Crystals Few (None Seen) Urine Bacteria Few /hpf (None Seen) H Urine Mucus Few (None Seen) Urine Yeast (Budding) Occasional /hpf (None Urine Glucose Normal mg/dL (Normal) Labs and/or images reviewed: Labs reviewed by me, Image(s) reviewed by me Assessment/Plan Assessment/Plan Abdominal pain improved Moderate gastritis Nausea and vomiting improved Developmental delay Plan Discussed with Dr. Hay Protonix and Carafate Diet as tolerated Outpatient GI follow-up recommended Patient is cleared for discharge from GI point of view Plan discussed with: Patient Date of Service: Aug 11, 2025 Billing Provider: IKER RAMOS Common Visit Codes: [id number] INP/OBS CARE(HIGH) IKER RAMOS Aug 11, 2025 14:25
[2025-08-11 16:17] VITALS: TEMP 36.9
[2025-08-11 17:00] VITALS: BP 118/73; PULSE 87; RESP 17; TEMP 98.4; O2SAT 98
[2025-08-11] MEDS ORDERED: PANTOPRAZOLE 40 MG TAB PO SCH (22:00)
== END 2025-08-11 18:20 | disposition home or self-care (01) | DRG 241 ==
LOC: ER 08:40 → OVERFLOW 12:23 → CENTRAL 08-07 13:09
PROVIDERS: ADMIT Family Medicine; ATTEND Family Medicine
DX: K29.70 Gastritis, unspecified, without bleeding (principal); T76.11XA Adult physical abuse, suspected, initial encounter; K31.3 Pylorospasm, not elsewhere classified; E66.9 Obesity, unspecified; N20.0 Calculus of kidney; K59.00 Constipation, unspecified; F41.9 Anxiety disorder, unspecified; R62.50 Unspecified lack of expected normal physiological development in childhood; Z87.442 Personal history of urinary calculi; Z87.440 Personal history of urinary (tract) infections; Z82.5 Family history of asthma and other chronic lower respiratory diseases; Z83.3 Family history of diabetes mellitus; Z68.29 Body mass index [BMI] 29.0-29.9, adult; Y08.89XA Assault by other specified means, initial encounter
CPT/HCPCS: 36415; 80048; 80053; 81001; 81025; 83690; 83735; 85025; G0378; J2405; J2470